=== PATIENT | female | born 1960 | race Caucasian/White ===

== ENCOUNTER 2020-08-21 06:13 | Outpatient (REF) | payer OTHER, SELFPAY ==
[2020-08-21 08:56] LABS: Thyroid Stimulating Hormone 1.98 mIU/mL (0.32-4.0)
[2020-08-21 09:29] LABS: T4 Thyroxine 9.2 ug/dL (4.5-12.0)
== END 2020-08-21 06:14 | disposition home or self-care (01) ==
LOC: HO.LAB 06:13
PROVIDERS: PCP Internal Medicine; Visit Provider Internal Medicine
DX: E03.9 Hypothyroidism, unspecified (principal)
CPT/HCPCS: 84436; 84443

== ENCOUNTER 2020-11-22 17:55 | Outpatient (REF) | payer OTHER, SELFPAY ==
[2020-11-23 10:49] LABS: MRSA Nasal PCR NEGATIVE (Negative); SA Nasal PCR NEGATIVE (Negative)
== END 2020-11-22 17:56 | disposition home or self-care (01) ==
LOC: HO.LNP 17:55
PROVIDERS: Visit Provider Internal Medicine
DX: Z20.818 Contact with and (suspected) exposure to other bacterial communicable diseases (principal)
CPT/HCPCS: 87640; 87641

== ENCOUNTER 2021-01-10 07:35 | Outpatient (REF) | payer OTHER, SELFPAY ==
[2021-01-10 10:18] LABS: MANUAL DIFF FLAG NO
[2021-01-10 10:32] LABS: Basophils Absolute Auto 0.1 X10*3/uL (0.0-0.2); Basophils Percent Auto 0.8 % (0-2); Eosinophils Absolute Auto 0.2 X10*3/uL (0.0-0.4); Eosinophils Percent Auto 2.3 % (0-4); Hematocrit 41.5 % (37-47); Hemoglobin 13.9 g/dl (12.0-16.0); Imm Gran Abs Auto 0.03 X10*3/uL (0.00-0.03); Imm Gran Pct Auto 0.3 % (0.0-0.4); Lymphocytes Absolute Auto 2.4 X10*3/uL (1.2-4.9); Lymphocytes Percent Auto 27.2 % (20-40); Mean Corpuscular HGB Conc 33.5 g/dl (31.0-35.0); Mean Corpuscular Hemoglobin 32.7 pg (27.0-33.0); Mean Corpuscular Volume 97.6 fL (80-98); Mean Platelet Volume 10.9 fL (9.4-12.3); Monocytes Absolute Auto 0.5 X10*3/uL (0.1-1.2); Monocytes Percent Auto 5.9 % (2-11); Neutrophils Absolute Auto 5.7 X10*3/uL (2.0-8.3); Neutrophils Percent Auto 63.5 % (45-73); Platelet Count 302 X10*3/uL (160-400); Red Blood Count 4.25 X10*6/uL (4.20-5.50); Red Cell Distribution Width 12.5 % (11.0-16.0)
[2021-01-10 10:41] LABS: Glucose Urine UA NEG (NEG); Leukocyte Esterase Urine NEG (NEG); Nitrite Urine NEG (NEG); Specific Gravity - Urine 1.025 (1.005-1.025); Urine Blood 1+ (NEG); Urine Ketones NEG (NEG); Urine Protein NEG (NEG-TRACE)
[2021-01-10 10:42] LABS: Appearance Urine CLOUDY; Color Urine YELLOW
[2021-01-10 10:56] LABS: Bacteria Urine 4+ /LPF; Calcium Oxalate Crystals Urine 4+ /LPF
[2021-01-10 11:08] LABS: Alanine Aminotransferase 15 U/L (0-31); Albumin Level 4.5 g/dL (3.5-5.0); Alkaline Phosphatase 63 U/L (39-117); Anion Gap 13 (12-20); Aspartate Amino Transferase 15 U/L (5-31); Bilirubin Total 0.5 mg/dL (0.0-1.0); Blood Urea Nitrogen 13 mg/dL (9-16); Calcium 8.9 mg/dL (8.4-10.2); Carbon Dioxide 26 mmol/L (22-29); Chloride 104 mmol/L (96-108); Cholesterol 206 mg/dL; Estimated Glomerular Filt Rate > 60; Glucose Random 88 mg/dL (60-115); HDL Cholesterol 65 mg/dL; LDL Cholesterol Calculated 126 mg/dl; Potassium 3.9 mmol/L (3.3-5.1); Sodium 139 mmol/L (135-145); Total Protein 6.7 g/dL (6.5-8.0); Triglycerides 79 mg/dL
[2021-01-10 11:30] LABS: Free T4 (Free Thyroxine) 1.06 ng/dL (0.71-1.85); Vitamin D 25-OH Total 43.8 ng/mL (>30)
[2021-01-10 12:29] LABS: Folate 12.8 ng/mL (> or = 4.0); Vitamin B12 389 pg/mL (200-900)
== END 2021-01-10 07:36 | disposition home or self-care (01) ==
LOC: HO.10HDL 07:35
PROVIDERS: Visit Provider Internal Medicine
DX: K21.9 Gastro-esophageal reflux disease without esophagitis (principal); E03.9 Hypothyroidism, unspecified; E78.00 Pure hypercholesterolemia, unspecified; E53.8 Deficiency of other specified B group vitamins
CPT/HCPCS: 36415; 80053; 80061; 81001; 82306; 82607; 82746; 84439; 84443; 85025; 86900; 86901

== ENCOUNTER → 2021-10-28 14:14 | Outpatient (BNVA) | payer OTHER, SELFPAY | PROVIDERS: PCP Internal Medicine; Visit Provider Orthopaedic Surgery | DX: M79.641 Pain in right hand (principal); R20.0 Anesthesia of skin; R20.2 Paresthesia of skin | CPT/HCPCS: 99202 ==

== ENCOUNTER 2021-12-12 07:33 | Outpatient (REF) | payer OTHER, SELFPAY ==
[2021-12-12 10:32] LABS: MANUAL DIFF FLAG NO
[2021-12-12 10:39] LABS: Basophils Absolute Auto 0.1 X10*3/uL (0.0-0.2); Basophils Percent Auto 0.8 % (0-2); Eosinophils Absolute Auto 0.3 X10*3/uL (0.0-0.4); Eosinophils Percent Auto 2.3 % (0-4); Hematocrit 41.2 % (37.0-47.0); Hemoglobin 13.7 g/dl (12.0-16.0); Imm Gran Abs Auto 0.03 X10*3/uL (0.00-0.03); Imm Gran Pct Auto 0.3 % (0.0-0.4); Lymphocytes Absolute Auto 2.8 X10*3/uL (1.2-4.9); Lymphocytes Percent Auto 25.4 % (20-40); Mean Corpuscular HGB Conc 33.3 g/dl (31.0-35.0); Mean Corpuscular Hemoglobin 32.1 pg (27.0-33.0); Mean Corpuscular Volume 96.5 fL (80.0-98.0); Mean Platelet Volume 12.1 fL (9.4-12.3); Monocytes Absolute Auto 0.6 X10*3/uL (0.1-1.2); Monocytes Percent Auto 5.3 % (2-11); Neutrophils Absolute Auto 7.2 x10*3/uL (2.0-8.3); Neutrophils Percent Auto 65.9 % (45-73); Platelet Count 222 X10*3/uL (160-400); Red Blood Count 4.27 X10*6/uL (4.20-5.50); White Blood Count 10.9 X10*3/uL (4.8-10.8)
[2021-12-12 10:46] LABS: Alanine Aminotransferase 11 U/L (0-31); Albumin Level 4.4 g/dL (3.5-5.0); Alkaline Phosphatase 70 U/L (39-117); Anion Gap 12 (12-20); Aspartate Amino Transferase 13 U/L (5-31); Bilirubin Total 0.6 mg/dL (0.0-1.0); Blood Urea Nitrogen 15 mg/dL (9-16); Calcium 9.5 mg/dL (8.4-10.2); Carbon Dioxide 25 mmol/L (22-29); Chloride 107 mmol/L (96-108); Cholesterol 251 mg/dL; Estimated Glomerular Filt Rate > 60; Glucose Random 88 mg/dL (60-115); HDL Cholesterol 44 mg/dL; LDL Cholesterol Calculated 179 mg/dl; Potassium 4.1 mmol/L (3.3-5.1); Sodium 140 mmol/L (135-145); Total Protein 6.8 g/dL (6.5-8.0); Triglycerides 142 mg/dL
[2021-12-12 11:06] LABS: Thyroid Stimulating Hormone 5.66 uIU/mL (0.32-4.0); Vitamin D 25-OH Total 54.5 ng/mL (>30)
[2021-12-12 11:27] LABS: Folate 8.4 ng/mL (> or = 4.0); Vitamin B12 449 pg/mL (200-900)
== END 2021-12-12 07:34 | disposition home or self-care (01) ==
LOC: HO.10HDL 07:33
PROVIDERS: Visit Provider Internal Medicine
DX: E03.9 Hypothyroidism, unspecified (principal); E78.00 Pure hypercholesterolemia, unspecified
CPT/HCPCS: 36415; 80053; 80061; 82306; 82607; 82746; 84439; 84443; 85025

== ENCOUNTER 2022-01-13 14:37 | Outpatient (RCR) | payer OTHER, SELFPAY ==
--- NOTE | 2022-01-13 15:36 | MHC.PT.EP ---
[facility] [place] Office [place] Office [place] Office [address] Shelli Grullon [address] [phone] F: [phone] F: [phone] F: [phone] F: [phone] Physical Therapy Plan of Care Date of Evaluation: Date of Surgery: n/a Diagnosis: cervicalgia Assessment: Patient is a 61 year old female presenting to PT with complaints of pain in her neck. Pt reports onset of pain began 5 months ago due to insidious onset. She presents today with impairments in pain, cervical ROM, DNF strength, and posture. 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 Pt expresses alf goal of being able to lift without pain for work, and is motivated to work towards this in PT. Clinical presentation today is most consistent with signs and sx associated with neck pain that is likely myofascial in nature and pt will benefit from skilled PT to address the following problems and impairments noted upon evaluation: pain, cervical ROM, DNF strength, and posture. These problems limit the patient with the following functional activities: lifting, and work. The prescribed treatment plan of care is medically necessary. Co-morbidities of none were identified and taken into considerations of plan of care. Pt was educated on HEP, role of PT, prognosis, POC. Frequency and Duration: The patient will be seen 2 x week x 4 weeks Short Term Goals: Pt will demonstrate improved AROM with min to no pain in available range in 2 weeks. Pt will demonstrate good DNF recruitment with chin tuck in 2 weeks for improved strength. Pt will demonstrate improved postural awareness by sitting with biomechanically correct posture without cues throughout session to improve overall postural function in 2 weeks. 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 Pt will demonstrate improved NDI score to less than 15% disability in 4 weeks for improved overall functional mobility. Treatment Plan: Modalities to reduce pain, spasms and effusion. Manual therapy to restore motion and function. Therapeutic exercise to improve strength and flexibility. Neuromuscular re-education for posture and balance. Therapeutic activities to return to functional activities of daily living. Electronically signed by: Radha Morgan, PT, DPT, ATC Please sign and return to therapist. Thank you for your referral.
--- NOTE | 2022-01-19 15:26 | MHC.PT.DC ---
[facility] [place] Office [place] Office [place] Office [address] Shelli Grullon [address] [phone] F: [phone] F: [phone] F: [phone] F: [phone] Physical Therapy Discharge Report Diagnosis: cervicalgia Date of Surgery: n/a Date of Evaluation: 01/13/22 Date of Discharge: 01/19/22 Treatments to Date: 1 Cancellations to Date: 0 No Shows to Date: 0 Discharge Status: Patient Elected to Stop Discharge Summary: Pt presented today stating she had significantly worse pain after the evaluation and massage/stretches that she tried. Pt stating she does not feel comfortable completing exercises at this point and does not want to continue with PT. Discussed with pt that there are other exercises and interventions we can try for pain management and but she declined these as well. Pt stating she would like to follow up with PCP and would like to be discharged at this time. Therefore pt to be d/c and to follow up with MD. Electronically signed by: Radha Morgan, PT, DPT, ATC Please sign and return to therapist. Thank you for your referral.
== END 2022-01-19 15:26 | disposition home or self-care (01) ==
LOC: HO.PTCHIC 14:37
PROVIDERS: PCP Internal Medicine; Visit Provider Internal Medicine
DX: M54.2 Cervicalgia (principal)
CPT/HCPCS: 97140; 97161

== ENCOUNTER 2022-02-02 08:00 | Outpatient (REF) | payer OTHER, SELFPAY ==
[2022-02-02 11:21] LABS: Free T4 (Free Thyroxine) 1.05 ng/dL (0.71-1.85); Thyroid Stimulating Hormone 2.71 uIU/mL (0.32-4.0)
== END 2022-02-02 08:01 | disposition home or self-care (01) ==
LOC: HO.10HDL 08:00
PROVIDERS: Visit Provider Internal Medicine
DX: E03.9 Hypothyroidism, unspecified (principal)
CPT/HCPCS: 36415; 84439; 84443

== ENCOUNTER 2022-02-25 14:10 | Outpatient (REF) | payer OTHER, SELFPAY ==
[2022-02-25 14:44] LABS: COVID-19 Test Negative (Negative)
== END 2022-02-25 14:11 | disposition home or self-care (01) ==
LOC: HO.LAB 14:10
PROVIDERS: Visit Provider Internal Medicine
DX: Z20.822 Contact with and (suspected) exposure to COVID-19 (principal)
CPT/HCPCS: 87635; C9803

== ENCOUNTER 2022-03-23 08:08 | Outpatient (REF) | payer OTHER, SELFPAY ==
[2022-03-23 11:06] LABS: Thyroid Stimulating Hormone 0.79 uIU/mL (0.32-4.0)
== END 2022-03-23 08:09 | disposition home or self-care (01) ==
LOC: HO.10HDL 08:08
PROVIDERS: Visit Provider Internal Medicine
DX: E03.9 Hypothyroidism, unspecified (principal)
CPT/HCPCS: 36415; 84443

== ENCOUNTER 2022-03-30 07:27 | Outpatient (REF) | payer OTHER, SELFPAY ==
[2022-03-30 10:20] LABS: MANUAL DIFF FLAG NO
[2022-03-30 10:24] LABS: Basophils Absolute Auto 0.1 X10*3/uL (0.0-0.2); Basophils Percent Auto 0.6 % (0-2); Eosinophils Absolute Auto 0.3 X10*3/uL (0.0-0.4); Eosinophils Percent Auto 2.7 % (0-4); Hematocrit 40.5 % (37.0-47.0); Hemoglobin 13.6 g/dl (12.0-16.0); Imm Gran Abs Auto 0.05 X10*3/uL (0.00-0.03); Imm Gran Pct Auto 0.4 % (0.0-0.4); Lymphocytes Absolute Auto 2.7 X10*3/uL (1.2-4.9); Lymphocytes Percent Auto 21.8 % (20-40); Mean Corpuscular HGB Conc 33.6 g/dl (31.0-35.0); Mean Corpuscular Hemoglobin 32.2 pg (27.0-33.0); Mean Platelet Volume 11.3 fL (9.4-12.3); Monocytes Absolute Auto 0.6 X10*3/uL (0.1-1.2); Monocytes Percent Auto 4.7 % (2-11); Neutrophils Absolute Auto 8.7 x10*3/uL (2.0-8.3); Neutrophils Percent Auto 69.8 % (45-73); Platelet Count 266 X10*3/uL (160-400); Red Blood Count 4.22 X10*6/uL (4.20-5.50); Red Cell Distribution Width 12.4 % (11.0-16.0); White Blood Count 12.5 X10*3/uL (4.8-10.8)
[2022-03-30 10:47] LABS: Alanine Aminotransferase 19 U/L (0-31); Albumin Level 4.3 g/dL (3.5-5.0); Alkaline Phosphatase 56 U/L (39-117); Anion Gap 13 (12-20); Aspartate Amino Transferase 15 U/L (5-31); Bilirubin Total 0.2 mg/dL (0.0-1.0); Blood Urea Nitrogen 14 mg/dL (9-16); Calcium 9.4 mg/dL (8.4-10.2); Carbon Dioxide 24 mmol/L (22-29); Chloride 106 mmol/L (96-108); Cholesterol 231 mg/dL; Estimated Glomerular Filt Rate > 60; Glucose Random 114 mg/dL (60-115); HDL Cholesterol 54 mg/dL; LDL Cholesterol Calculated 159 mg/dl; Potassium 4.1 mmol/L (3.3-5.1); Sodium 139 mmol/L (135-145); Total Protein 6.6 g/dL (6.5-8.0); Triglycerides 92 mg/dL
== END 2022-03-30 07:28 | disposition home or self-care (01) ==
LOC: HO.10HDL 07:27
PROVIDERS: Visit Provider Internal Medicine
DX: E78.00 Pure hypercholesterolemia, unspecified (principal)
CPT/HCPCS: 36415; 80053; 80061; 84439; 84443; 85025

== ENCOUNTER → 2022-04-29 14:26 | Outpatient (REF) | payer OTHER, SELFPAY ==
--- NOTE | 2022-04-29 14:28 | HM_ITS ---
Conclusion: 1. Patient was monitor for total period of 3 days and 1 hour 2. Baseline was normal sinus rhythm with average heart of 86 beats per minute 3. No significant pauses or bradycardia noted 4. Total of 800 PVCs accounting for 0.23% of total beats accounting for occasional PVCs 5. Short runs of SVT longest lasting 6 beats 6. No patient reported events MTDD
== END ==
LOC: HO.CARD 14:26
PROVIDERS: Visit Provider Internal Medicine
DX: R00.2 Palpitations (principal)
CPT/HCPCS: 93242

== ENCOUNTER 2022-05-12 14:05 | Outpatient (REF) | payer OTHER, SELFPAY ==
[2022-05-12 15:18] LABS: COVID-19 Test Negative (Negative); IDNOW Serial# 16C4AD1C
== END 2022-05-12 14:06 | disposition home or self-care (01) ==
LOC: HO.LAB 14:05
PROVIDERS: Visit Provider Internal Medicine
DX: Z20.822 Contact with and (suspected) exposure to COVID-19 (principal)
CPT/HCPCS: 87635; C9803

== ENCOUNTER 2022-05-22 09:51 | Emergency (ER) | payer OTHER, SELFPAY ==
[2022-05-22 10:32] VITALS: BP 104/72; PULSE 80; RESP 16; TEMP 36.8; O2SAT 96; BMI 18.3
[2022-05-22 10:51] LABS: MANUAL DIFF FLAG NO
[2022-05-22 10:53] LABS: Basophils Absolute Auto 0.1 X10*3/uL (0.0-0.2); Basophils Percent Auto 0.5 % (0-2); Eosinophils Absolute Auto 0.2 X10*3/uL (0.0-0.4); Eosinophils Percent Auto 1.2 % (0-4); Hematocrit 39.6 % (37.0-47.0); Hemoglobin 13.4 g/dl (12.0-16.0); Imm Gran Abs Auto 0.04 X10*3/uL (0.00-0.03); Imm Gran Pct Auto 0.3 % (0.0-0.4); Lymphocytes Absolute Auto 3.4 X10*3/uL (1.2-4.9); Lymphocytes Percent Auto 26.4 % (20-40); Mean Corpuscular HGB Conc 33.8 g/dl (31.0-35.0); Mean Corpuscular Hemoglobin 32.4 pg (27.0-33.0); Mean Corpuscular Volume 95.7 fL (80.0-98.0); Mean Platelet Volume 10.2 fL (9.4-12.3); Monocytes Absolute Auto 0.7 X10*3/uL (0.1-1.2); Monocytes Percent Auto 5.1 % (2-11); Neutrophils Absolute Auto 8.4 x10*3/uL (2.0-8.3); Neutrophils Percent Auto 66.5 % (45-73); Platelet Count 265 X10*3/uL (160-400); Red Blood Count 4.14 X10*6/uL (4.20-5.50); Red Cell Distribution Width 12.8 % (11.0-16.0); White Blood Count 12.7 X10*3/uL (4.8-10.8)
[2022-05-22 10:58] LABS: Appearance Urine HAZY; Color Urine STRAW; Glucose Urine UA NEG (NEG); Leukocyte Esterase Urine NEG (NEG); Nitrite Urine POS (NEG); Specific Gravity - Urine <= 1.005 (1.005-1.025); UACC Culture Trigger YES; Urine Blood NEG (NEG); Urine Ketones NEG (NEG); Urine Protein NEG (NEG-TRACE)
[2022-05-22 11:05] LABS: Bacteria Urine 4+ /LPF; Squamous Epithelial Cell Urine TRACE /LPF
[2022-05-22 11:06] LABS: RBC Urine 0 /HPF (0); WBC Urine 0 /HPF (0-4)
[2022-05-22 11:12] LABS: Alanine Aminotransferase 33 U/L (0-31); Albumin Level 4.5 g/dL (3.5-5.0); Alkaline Phosphatase 56 U/L (39-117); Anion Gap 13 (12-20); Aspartate Amino Transferase 20 U/L (5-31); Bilirubin Total 0.7 mg/dL (0.0-1.0); Blood Urea Nitrogen 10 mg/dL (9-16); Calcium 9.2 mg/dL (8.4-10.2); Carbon Dioxide 27 mmol/L (22-29); Chloride 105 mmol/L (96-108); Creatinine Clr Calc Pharmacy 59.4; Estimated Glomerular Filt Rate > 60; Glucose Random 99 mg/dL (60-115); Lipase 14 U/L (8-78); Potassium 4.2 mmol/L (3.3-5.1); Sodium 141 mmol/L (135-145); Total Protein 6.7 g/dL (6.5-8.0)
== END 2022-05-22 15:30 | disposition left against medical advice (07) ==
PROVIDERS: Emergency Provider Emergency Medicine; PCP Internal Medicine
DX: R10.13 Epigastric pain (principal)
CPT/HCPCS: 36415; 80053; 81001; 81003; 83690; 85025; 87086; 87088; 87186; 99282; 99283

== ENCOUNTER 2022-06-03 07:31 | Outpatient (REF) | payer OTHER, SELFPAY ==
[2022-06-03 08:50] LABS: COVID-19 Test Negative (Negative); IDNOW Serial# 9DB6401D
== END 2022-06-03 07:32 | disposition home or self-care (01) ==
LOC: HO.LAB 07:31
PROVIDERS: Visit Provider Internal Medicine
DX: Z20.822 Contact with and (suspected) exposure to COVID-19 (principal)
CPT/HCPCS: 87635; C9803

== ENCOUNTER 2022-06-16 14:09 | Outpatient (REF) | payer OTHER, SELFPAY ==
[2022-06-16 14:52] LABS: COVID-19 Test Negative (Negative)
== END 2022-06-16 14:10 | disposition home or self-care (01) ==
LOC: HO.LAB 14:09
PROVIDERS: Visit Provider Internal Medicine
DX: Z20.822 Contact with and (suspected) exposure to COVID-19 (principal)
CPT/HCPCS: 87635; C9803

== ENCOUNTER 2022-10-07 14:27 | Outpatient (REF) | payer OTHER, SELFPAY ==
[2022-10-07 16:28] LABS: MANUAL DIFF FLAG NO
[2022-10-07 16:34] LABS: Basophils Absolute Auto 0.1 X10*3/uL (0.0-0.2); Basophils Percent Auto 0.5 % (0-2); Eosinophils Absolute Auto 0.1 X10*3/uL (0.0-0.4); Eosinophils Percent Auto 0.7 % (0-4); Hematocrit 38.4 % (37.0-47.0); Hemoglobin 13.1 g/dl (12.0-16.0); Imm Gran Abs Auto 0.04 X10*3/uL (0.00-0.03); Imm Gran Pct Auto 0.4 % (0.0-0.4); Lymphocytes Absolute Auto 2.4 X10*3/uL (1.2-4.9); Lymphocytes Percent Auto 24.8 % (20-40); Mean Corpuscular HGB Conc 34.1 g/dl (31.0-35.0); Mean Corpuscular Hemoglobin 32.6 pg (27.0-33.0); Mean Corpuscular Volume 95.5 fL (80.0-98.0); Mean Platelet Volume 11.7 fL (9.4-12.3); Monocytes Absolute Auto 0.5 X10*3/uL (0.1-1.2); Monocytes Percent Auto 5.6 % (2-11); Neutrophils Absolute Auto 6.5 x10*3/uL (2.0-8.3); Platelet Count 206 X10*3/uL (160-400); Red Blood Count 4.02 X10*6/uL (4.20-5.50); Red Cell Distribution Width 12.7 % (11.0-16.0); White Blood Count 9.6 X10*3/uL (4.8-10.8)
[2022-10-07 16:42] LABS: Alanine Aminotransferase 72 U/L (0-31); Albumin Level 3.9 g/dL (3.5-5.0); Alkaline Phosphatase 62 U/L (39-117); Anion Gap 13 (12-20); Aspartate Amino Transferase 27 U/L (5-31); Bilirubin Direct 0.3 mg/dL (0.0-0.5); Blood Urea Nitrogen 6 mg/dL (9-16); C Reactive Protein 4.82 mg/dL (< or = 0.50); Calcium 9.3 mg/dL (8.4-10.2); Carbon Dioxide 30 mmol/L (22-29); Chloride 99 mmol/L (96-108); Estimated Glomerular Filt Rate > 60; Glucose Random 89 mg/dL (60-115); Potassium 3.5 mmol/L (3.3-5.1); Sodium 138 mmol/L (135-145); Total Protein 6.3 g/dL (6.5-8.0)
[2022-10-07 17:50] LABS: Erythrocyte Sedimentation Rate 25 MM/HR (0-20)
== END 2022-10-07 14:28 | disposition home or self-care (01) ==
LOC: HO.HMGCLDS 14:27
PROVIDERS: PCP Internal Medicine; Visit Provider Nurse Practitioner Family
DX: R10.9 Unspecified abdominal pain (principal)
CPT/HCPCS: 36415; 80048; 80076; 85025; 85652; 86140

== ENCOUNTER 2023-05-17 14:10 | Outpatient (AMB) | payer OTHER, SELFPAY ==
[2023-05-17 14:14] VITALS: BP 110/70; BMI 17.7
--- NOTE | 2023-05-17 14:14 | MHC.PC.OV ---
Vital Signs 05/17/23 14:14 Height 5 ft 2 in Weight 97 lb BMI 17.7 BP 110/70 Blood Pressure Location Lt brachial Position Sitting Intake Visit Reasons: cholesterol Allergies sulfamethoxazole [From Bactrim] Allergy (Severe, Verified 05/17/23 14:15) upset stomach trimethoprim [From Bactrim] Allergy (Severe, Verified 05/17/23 14:15) upset stomach Penicillins [PENICILLINS] Allergy (Unknown, Verified 05/17/23 14:15) HIVES simvastatin [SIMVASTATIN] Allergy (Unknown, Verified 05/17/23 14:15) JOINT PAIN omeprazole Adverse Reaction (Intermediate, Verified 05/17/23 14:15) Headache Medication List - Last Reconciled 05/17/23 by Dominik Alas MD cholecalciferol (vitamin D3) 50 mcg PO DAILY cyanocobalamin (vitamin B-12) 1,000 mcg PO DAILY ferrous sulfate (Feosol) 325 mg PO DAILY folic acid 1 mg PO DAILY 90 days hydrocortisone 2.5% (Anusol-HC) 1 appl [place] BID-QID PRN lactobacillus combination no.4 (Probiotic) 3,000 mmu cells PO DAILY levothyroxine 88 mcg PO DAILY 90 days lidocaine 5% 1 patch topical DAILY lorazepam (Ativan) 0.5 mg PO BID PRN metoprolol succinate ER 12.5 mg PO DAILY pantoprazole 40 mg PO DAILY 30 days Tobacco use date assessed: 02/10/23 Dental Screening Dental Screen Date: 05/17/23 Did you have a dental visit in the last 12 months?: No Did you have a dental problem in the last 6 months where you did not have access to dental care?: No Was dental information given to patient?: No HPI cholesterol HPI Details 62-year-old female smoker with hypothyroidism GERD hypercholesterolemia anxiety disorder history of small-bowel obstruction which spontaneously resolved and a right eye cataract coming in for follow-up. Last seen in February 2023 and blood work was requested. Patient was recently discharged from the hospital 04/10/2023 had nausea vomiting and diarrhea and abdominal pain CT scan supporting pancolitis with appendicitis(but on follow-up appendix is better) IV antibiotics given. Saw Dr. Miller= treated as infection- July 19, 2023 for ENdoscopy. no dietary restriction PFSH Medical History (Updated 04/26/23 @ 18:49 by Dominik Alas MD) Anemia Cataract, left eye Colonoscopy refused Generalized anxiety disorder GERD (gastroesophageal reflux disease) Hypercholesterolemia Hypothyroid Tobacco abuse Vitamin B12 deficiency Surgical History History of eye surgery Family History Father Hypertension CVD (cardiovascular disease) Bladder cancer Mother CVD (cardiovascular disease) Hypertension Lymphoma Maternal Grandmother Uterine cancer Breast cancer Maternal Aunt Ovarian cancer Sister CVD (cardiovascular disease) Social History (Updated 02/10/23 @ 13:48 by Dominik Alas MD) Housing: Apartment Alcohol intake: former Patient Tobacco Use Status: Current everyday Tobacco user Tobacco use type: Cigarette Cigarette Packs Per Day: 1 Cigarettes Per Day: 5 Years Smoked: less than half pack per day 12/2020, pack a day 12/2021 Packs Per Year: 0 Packs per year/per ci.00 e-Cigarette/Vaping Use: Never Used Second Hand Smoke Exposure: Yes service: No Current occupational status: employed 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 1. Little interest or pleasure in doing things: not at all 2. Feeling down, depressed, or hopeless: not at all 3. Trouble falling or staying asleep, or sleeping too much: not at all 4. Feeling tired or having little energy: not at all 5. Poor appetite or overeating: not at all 6. Feeling bad about yourself - or that you are a failure or have let yourself or your family down: not at all 7. Trouble concentrating on things, such as reading the newspaper or watching television: not at all 8. Moving or speaking so slowly that other people could have noticed. Or the opposite - being so fidgety or restless that you have been moving around a lot more than usual: not at all 9. Thoughts that you would be better off or of hurting yourself in some way: not at all Total score: 0 Depression Screening Interpretation: Negative Source: Developed by Drs. Piero L. EricMillie elizabeth Kurt Kroenke and colleagues, with an educational anila from [employer]. Thrive Questionnaire Date Thrive assessed: 02/10/23 AUDIT C Alcohol Use Questionnaire (AUDIT-C) 1. How often do you have a drink containing alcohol?: Never 3. How often do you have six or more drinks on one occasion?: Never Total Score: 0 Score Reviewed/Action Taken: Yes VAL-7 AMB Questionnaire VAL-7 Date VAL - 7 assessed: 02/10/23 Source: Developed by Drs. Piero Reyes, Patrice Mcwilliams and colleagues, with an educational anila from [employer]. Physical exam (Primary Care) Vital Signs: Last Vital Signs BP 110/70 05/17/23 14:14 BMI result Body Mass Index 17.7 Tobacco/Smoking Status: Tobacco use Status Tobacco use date assessed 02/10/23 05/17/23 14:20 Patient Tobacco Use Status Current everyday Tobacco 05/17/23 14:20 Tobacco use type Cigarette 05/17/23 14:20 e-Cigarette/Vaping Use Never Used 05/17/23 14:20 PHQ-9: PHQ-9 Score PHQ-9: Total score 0 05/17/23 14:20 Depression Screening Interpretation: Negative Thrive Assessment: Date of Thrive Assessment Date Thrive assessed 02/10/23 05/17/23 14:20 Const General: alert; No acute distress Eyes Conjunctivae: conjunctivae normal Resp Auscultation: clear to auscultation bilaterally Cardio Rate: regular rate Rhythm: regular rhythm GI Inspection: Yes normal to inspection Extrem General: Yes normal to inspection and No edema Assessment and Plan Assessment & Plan (1) Pancolitis: Comment: April 2023 Code(s): K51.00 - Ulcerative (chronic) pancolitis without complications Plan: IV antibiotics given and advised to follow-up surgeon outpatient (2) Generalized anxiety disorder: Comment: Declined referral for counseling Code(s): F41.1 - Generalized anxiety disorder Plan: Continue with lorazepam as needed (3) Hypercholesterolemia: Code(s): E78.00 - Pure hypercholesterolemia, unspecified Plan: Avoid fried foods, chicken skin, eggs, butter margarine, pastries and meat. Be it pork or beef they have a lot of cholesterol LDL goal of less than 130 and triglyceride of less than 50 (4) GERD (gastroesophageal reflux disease): Code(s): K21.9 - Gastro-esophageal reflux disease without esophagitis Qualifiers: Esophagitis presence: without esophagitis Qualified Code(s): K21.9 - Gastro-esophageal reflux disease without esophagitis Plan: Avoid the foods that causes that usually spicy foods, tomato products, juices, coffee, soda and foods that your sensitive to. After eating do not lie down, allow 3-4 hours before in lie down. And keep the head of bed above 30 degrees to avoid the acid from going up. Advised to stop smoking (5) Tobacco abuse: Comment: 08/2022 stopped - continuing to smoke 02/2023 Code(s): Z72.0 - Tobacco use Plan: Patient is advised to stop smoking (6) Hypothyroid: Code(s): E03.9 - Hypothyroidism, unspecified Qualifiers: Hypothyroidism type: acquired Qualified Code(s): E03.9 - Hypothyroidism, unspecified Plan: Continue with the thyroid medication Medications: Changed From metoprolol succinate ER 12.5 mg (1/2 x 25 mg) PO DAILY 30 days 15 tabs 3RF R00.2 - Palpitations To metoprolol succinate ER SVT hx 12.5 mg PO DAILY R00.2 - Palpitations Coding Level of Care Code Est Pt Level 4 (44900) Diagnoses Pancolitis K51.00 Generalized anxiety disorder F41.1 Hypercholesterolemia E78.00 GERD (gastroesophageal reflux disease) K21.9 Esophagitis presence: without esophagitis Tobacco abuse Z72.0 Hypothyroid E03.9 Hypothyroidism type: acquired Additional Codes PHQ-9 - 49976 - PHQ-9 Billing: Y ([id number])
== END 2023-05-17 14:36 | disposition home or self-care (01) ==
PROVIDERS: Visit Provider Internal Medicine
DX: K51.00 Ulcerative (chronic) pancolitis without complications (principal); K21.9 Gastro-esophageal reflux disease without esophagitis; E03.9 Hypothyroidism, unspecified; F41.1 Generalized anxiety disorder; E78.00 Pure hypercholesterolemia, unspecified; Z72.0 Tobacco use
CPT/HCPCS: 99214

== ENCOUNTER 2023-11-22 14:26 | Outpatient (AMB) | payer OTHER, SELFPAY ==
[2023-11-22 14:40] VITALS: BP 102/78; BMI 18.3
--- NOTE | 2023-11-22 14:40 | MHC.PC.OV ---
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 Required: No Allergies sulfamethoxazole [From Bactrim] Allergy (Severe, Verified 11/22/23 14:40) upset stomach trimethoprim [From Bactrim] Allergy (Severe, Verified 11/22/23 14:40) upset stomach Penicillins [PENICILLINS] Allergy (Unknown, Verified 11/22/23 14:40) HIVES simvastatin [SIMVASTATIN] Allergy (Unknown, Verified 11/22/23 14:40) JOINT PAIN omeprazole Adverse Reaction (Intermediate, Verified 11/22/23 14:40) Headache Medication List - Last Reconciled 11/22/23 by Dominik Alas MD cholecalciferol (vitamin D3) 50 mcg PO DAILY cyanocobalamin (vitamin B-12) 1,000 mcg PO DAILY ferrous sulfate (Feosol) 325 mg PO DAILY folic acid 1 mg PO DAILY 90 days hydrocortisone 2.5% (Anusol-HC) 1 appl [place] BID-QID PRN lactobacillus combination no.4 (Probiotic) 3,000 mmu cells PO DAILY levothyroxine 88 mcg PO DAILY 90 days lidocaine 5% 1 patch topical DAILY lorazepam (Ativan) 0.5 mg PO BID PRN metoprolol succinate ER 12.5 mg (1/2 x 25 mg) PO DAILY pantoprazole 40 mg PO DAILY 30 days Tobacco use date assessed: 11/22/23 HPI abdominal pain, gerd HPI Details 63-year-old female smoker with a history of GERD hypothyroidism hypercholesterolemia generalized anxiety disorder last seen in May 2023 having pancolitis patient is here for follow-up. Noted mammogram up-to-date declined colonoscopy.. Receive the notes from [facility] ER March 2023 for abdominal pain status post cholecystectomy August 2022 had pancolitis diagnosis. L eye blind but R eye ? cataract.Dr. Franz. still smoking. - reaction to flu shot- L arm. [facility] Medical History (Updated 04/26/23 @ 18:49 by Dominik Alas MD) Generalized anxiety disorder Hypercholesterolemia Colonoscopy refused Cataract, left eye Anemia GERD (gastroesophageal reflux disease) Tobacco abuse Hypothyroid Vitamin B12 deficiency Surgical History History of eye surgery Family History Father Hypertension CVD (cardiovascular disease) Bladder cancer Mother CVD (cardiovascular disease) Hypertension Lymphoma Maternal Grandmother Uterine cancer Breast cancer Maternal Aunt Ovarian cancer Sister CVD (cardiovascular disease) Social History (Updated 02/10/23 @ 13:48 by Dominik Alas MD) Housing: Apartment Alcohol intake: former Patient Tobacco Use Status: Current everyday Tobacco user Tobacco use type: Cigarette Cigarette Packs Per Day: 1 Cigarettes Per Day: 5 Years Smoked: less than half pack per day 12/2020, pack a day 12/2021 e-Cigarette/Vaping Use: Never Used Second Hand Smoke Exposure: Yes service: No Current occupational status: employed 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 1. Little interest or pleasure in doing things: not at all 2. Feeling down, depressed, or hopeless: not at all 3. Trouble falling or staying asleep, or sleeping too much: not at all 4. Feeling tired or having little energy: not at all 5. Poor appetite or overeating: not at all 6. Feeling bad about yourself - or that you are a failure or have let yourself or your family down: not at all 7. Trouble concentrating on things, such as reading the newspaper or watching television: not at all 8. Moving or speaking so slowly that other people could have noticed. Or the opposite - being so fidgety or restless that you have been moving around a lot more than usual: not at all 9. Thoughts that you would be better off or of hurting yourself in some way: not at all Total score: 0 Depression Screening Interpretation: Negative Depression Screening Done: Yes Source: Developed by Drs. Piero Reyes, Millie Alvarado, Patrice Keita and colleagues, with an educational anila from [employer]. Thrive Questionnaire Date Thrive assessed: 11/22/23 AUDIT C Alcohol Use Questionnaire (AUDIT-C) 1. How often do you have a drink containing alcohol?: Never 3. How often do you have six or more drinks on one occasion?: Never Total Score: 0 Score Reviewed/Action Taken: Yes VAL-7 AMB Questionnaire VAL-7 Date VAL - 7 assessed: 11/22/23 Source: Developed by Drs. Piero Reyes, Millie Alvarado, Patrice Keita and colleagues, with an educational anila from [employer]. Physical exam (Primary Care) Vital Signs: Last Vital Signs BP 102/78 11/22/23 14:40 BMI result Body Mass Index 18.3 Tobacco/Smoking Status: Tobacco use Status Tobacco use date assessed 11/22/23 11/22/23 14:41 Patient Tobacco Use Status Current everyday Tobacco 11/22/23 14:41 Tobacco use type Cigarette 11/22/23 14:41 e-Cigarette/Vaping Use Never Used 11/22/23 14:41 PHQ-9: PHQ-9 Score PHQ-9: Total score 0 11/22/23 17:01 Depression Screening Interpretation: Negative Thrive Assessment: Date of Thrive Assessment Date Thrive assessed 11/22/23 11/22/23 14:41 Const General: alert; No acute distress Eyes Conjunctivae: conjunctivae normal Resp Auscultation: clear to auscultation bilaterally Cardio Rate: regular rate Rhythm: regular rhythm GI Inspection: Yes normal to inspection Extrem General: Yes normal to inspection and No edema Assessment and Plan Assessment & Plan (1) Tobacco abuse: Comment: 08/2022 stopped - continuing to smoke 02/2023 Code(s): Z72.0 - Tobacco use Plan: Patient is strongly advised to stop smoking! (2) GERD (gastroesophageal reflux disease): Code(s): K21.9 - Gastro-esophageal reflux disease without esophagitis Qualifiers: Esophagitis presence: without esophagitis Qualified Code(s): K21.9 - Gastro-esophageal reflux disease without esophagitis Plan: Avoid the foods that causes that usually spicy foods, tomato products, juices, coffee, soda and foods that your sensitive to. After eating do not lie down, allow 3-4 hours before in lie down. And keep the head of bed above 30 degrees to avoid the acid from going up. (3) Hypothyroid: Code(s): E03.9 - Hypothyroidism, unspecified Qualifiers: Hypothyroidism type: acquired Qualified Code(s): E03.9 - Hypothyroidism, unspecified Plan: Continue with thyroid medication need blood work request (4) Hypercholesterolemia: Code(s): E78.00 - Pure hypercholesterolemia, unspecified Plan: Avoid fried foods, chicken skin, eggs, butter margarine, pastries and meat. Be it pork or beef they have a lot of cholesterol can not tolerate statins (5) Generalized anxiety disorder: Comment: Declined referral for counseling Code(s): F41.1 - Generalized anxiety disorder Plan: Continue with lorazepam as needed (6) Pancolitis: Comment: April 2023 Code(s): K51.00 - Ulcerative (chronic) pancolitis without complications Plan: April 2023 ER visit Coding Level of Care Code Est Pt Level 4 (04814) Diagnoses Tobacco abuse Z72.0 Gastroesophageal reflux disease without esophagitis K21.9 Esophagitis presence: without esophagitis Acquired hypothyroidism E03.9 Hypothyroidism type: acquired Hypercholesterolemia E78.00 Generalized anxiety disorder F41.1 Pancolitis K51.00 Additional Codes PHQ-9 - 81209 - PHQ-9 Billing: ([id number])
== END 2023-11-22 15:53 | disposition home or self-care (01) ==
PROVIDERS: PCP Internal Medicine; Visit Provider Internal Medicine
DX: K51.00 Ulcerative (chronic) pancolitis without complications (principal); K21.9 Gastro-esophageal reflux disease without esophagitis; E03.9 Hypothyroidism, unspecified; E78.00 Pure hypercholesterolemia, unspecified
CPT/HCPCS: 99214

== ENCOUNTER 2024-01-28 07:29 | Outpatient (REF) | payer OTHER, SELFPAY ==
[2024-01-28 11:36] LABS: MANUAL DIFF FLAG NO
[2024-01-28 11:46] LABS: Basophils Absolute Auto 0.1 X10*3/uL (0.0-0.2); Eosinophils Absolute Auto 0.2 X10*3/uL (0.0-0.4); Eosinophils Percent Auto 2.1 % (0-4); Hemoglobin 15.2 g/dl (12.0-16.0); Imm Gran Abs Auto 0.05 X10*3/uL (0.00-0.03); Imm Gran Pct Auto 0.4 % (0.0-0.4); Lymphocytes Absolute Auto 2.7 X10*3/uL (1.2-4.9); Lymphocytes Percent Auto 22.9 % (20-40); Mean Corpuscular HGB Conc 34.5 g/dl (31.0-35.0); Mean Corpuscular Hemoglobin 33.4 pg (27.0-33.0); Mean Corpuscular Volume 96.7 fL (80.0-98.0); Mean Platelet Volume 10.7 fL (9.4-12.3); Monocytes Absolute Auto 0.6 X10*3/uL (0.1-1.2); Monocytes Percent Auto 5.2 % (2-11); Neutrophils Percent Auto 68.4 % (45-73); Platelet Count 267 X10*3/uL (160-400); Red Blood Count 4.55 X10*6/uL (4.20-5.50); Red Cell Distribution Width 12.2 % (11.0-16.0); White Blood Count 11.7 X10*3/uL (4.8-10.8)
[2024-01-28 12:26] LABS: Folate 7.4 ng/mL (> or = 4.0); Vitamin B12 540 pg/mL (200-900)
[2024-01-28 12:27] LABS: Alanine Aminotransferase 25 U/L (0-31); Albumin Level 4.4 g/dL (3.5-5.0); Alkaline Phosphatase 78 U/L (39-117); Anion Gap 14 (12-20); Aspartate Amino Transferase 19 U/L (5-31); Bilirubin Total 0.8 mg/dL (0.0-1.0); Blood Urea Nitrogen 11 mg/dL (9-16); Calcium 9.6 mg/dL (8.4-10.2); Carbon Dioxide 27 mmol/L (22-29); Chloride 105 mmol/L (96-108); Cholesterol 233 mg/dL (<200); Estimated Glomerular Filt Rate > 60; Free T4 (Free Thyroxine) 1.15 ng/dL (0.71-1.85); Glucose Random 100 mg/dL (60-115); HDL Cholesterol 80 mg/dL (>40); LDL Cholesterol Calculated 131 mg/dL (<100); Magnesium 1.8 mg/dL (1.6-2.6); Phosphorus 3.9 mg/dL (2.7-4.5); Potassium 3.9 mmol/L (3.3-5.1); Sodium 142 mmol/L (135-145); Thyroid Stimulating Hormone 1.36 uIU/mL (0.32-4.0); Total Protein 7.2 g/dL (6.5-8.0); Triglycerides 112 mg/dL (<150); Vitamin D 25-OH Total 55.3 ng/mL (>30)
== END 2024-01-28 07:30 | disposition home or self-care (01) ==
LOC: HO.10HDL 07:29
PROVIDERS: Visit Provider Internal Medicine
DX: E78.00 Pure hypercholesterolemia, unspecified (principal)
CPT/HCPCS: 36415; 80053; 80061; 82306; 82607; 82746; 83735; 84100; 84439; 84443; 85025

== ENCOUNTER 2024-02-14 14:47 | Outpatient (AMB) | payer OTHER, SELFPAY ==
[2024-02-14 14:49] VITALS: BP 102/68; BMI 17.9
--- NOTE | 2024-02-14 14:49 | MHC.PC.OV ---
Vital Signs 02/14/24 14:49 Height 5 ft 2 in Weight 98 lb 0.4 oz BMI 17.9 BP 102/68 Blood Pressure Location Lt brachial Position Sitting Pulse Source Pulse Oximeter Oxygen Delivery Method Room Air Comment pt refused pulse/O2 Intake Visit Reasons: Dr. Jacobo/03/06 cataract right eye Intake Note: Patient is here for a Pre-op for Right eye Cataracts scheduled with on 03/06. Home Health Nurse Licensed Practical Required: No Allergies sulfamethoxazole [From Bactrim] Allergy (Severe, Verified 02/14/24 14:49) upset stomach trimethoprim [From Bactrim] Allergy (Severe, Verified 02/14/24 14:49) upset stomach Penicillins [PENICILLINS] Allergy (Unknown, Verified 02/14/24 14:49) HIVES simvastatin [SIMVASTATIN] Allergy (Unknown, Verified 02/14/24 14:49) JOINT PAIN omeprazole Adverse Reaction (Intermediate, Verified 02/14/24 14:49) Headache Medication List - Last Reconciled 02/14/24 by Dominik Alas MD cholecalciferol (vitamin D3) 50 mcg PO DAILY cyanocobalamin (vitamin B-12) 1,000 mcg PO DAILY ferrous sulfate (Feosol) 325 mg PO DAILY folic acid 1 mg PO DAILY 90 days hydrocortisone 2.5% (Anusol-HC) 1 appl TN BID-QID PRN lactobacillus combination no.4 (Probiotic) 3,000 mmu cells PO DAILY levothyroxine 88 mcg PO DAILY 90 days lidocaine 5% 1 patch topical DAILY lorazepam (Ativan) 0.5 mg PO BID PRN metoprolol succinate ER 12.5 mg (1/2 x 25 mg) PO DAILY pantoprazole 40 mg PO DAILY 30 days Tobacco use date assessed: 02/14/24 Dental Screening Dental Screen Date: 05/17/[address] Jacobo/03/06 cataract right eye HPI Details 63-year-old female smoker with GERD, hypothyroidism hypercholesterolemia and generalized anxiety disorder last seen in November 2023. Patient's mammogram is due next month colonoscopy has been declined. Patient is for right eye cataract surgery 03/06/2024 comes in for preoperative evaluation.. cold wednesday. - better yesterday. PFSH Medical History (Updated 02/14/24 @ 15:15 by Dominik Alas MD) Generalized anxiety disorder Hypercholesterolemia Colonoscopy refused Cataract, left eye Anemia GERD (gastroesophageal reflux disease) Tobacco abuse Hypothyroid Vitamin B12 deficiency Surgical History History of eye surgery Family History (Updated 02/14/24 @ 15:19 by Dominik Alas MD) Father Hypertension CVD (cardiovascular disease) Bladder cancer Mother CVD (cardiovascular disease) Hypertension Lymphoma Maternal Grandmother Uterine cancer Breast cancer Maternal Aunt Ovarian cancer Sister No problems noted. 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 How often do you have a drink containing alcohol?: Never 3. How often do you have six or more drinks on one occasion?: Never Total Score: 0 Score Reviewed/Action Taken: Yes VAL-7 AMB Questionnaire VAL-7 Date VAL - 7 assessed: 11/22/23 Source: Developed by Drs. Piero Reyes, Millei Alvarado, Patrice Keita and colleagues, with an educational anila from [employer]. Review of Systems Const Denies poor appetite and Denies weakness Eyes Denies no additional complaints ENT Reports Normal hearing present, Denies dizziness, Denies nasal congestion, Denies tinnitus and Denies sore throat Card Denies chest pain, Denies syncope, Denies rapid heart rate and Denies dyspnea Resp Denies cough and Denies dyspnea GI Denies change in stool character, Reports constipation, Denies diarrhea, Denies nausea and Denies vomiting Denies urinary frequency, Denies difficulty voiding and Denies dysuria Neuro Reports Normal hearing present, Denies confusion, Denies dizziness, Denies syncope and Denies weakness Psych Denies confusion Physical exam (Primary Care) Vital Signs: Last Vital Signs BP 102/68 02/14/24 14:49 Oxygen Delivery Method Room Air 02/14/24 14:49 BMI result Body Mass Index 17.9 Tobacco/Smoking Status: Tobacco use Status Tobacco use date assessed 02/14/24 02/14/24 14:51 Patient Tobacco Use Status Current everyday Tobacco 02/14/24 14:51 Tobacco use type Cigarette 02/14/24 14:51 e-Cigarette/Vaping Use Never Used 02/14/24 14:51 Thrive Assessment: Date of Thrive Assessment Date Thrive assessed 11/22/23 02/14/24 14:51 Const General: No confusion Orientation/consciousness: No confusion Eyes Conjunctivae: conjunctivae normal Resp Auscultation: clear to auscultation bilaterally Cardio Rate: regular rate Rhythm: regular rhythm GI Inspection: Yes normal to inspection Neuro General: No confusion Cranial nerves: Yes Normal hearing present Extrem General: Yes normal to inspection and No edema Assessment and Plan Assessment & Plan (1) Preop exam for internal medicine: Code(s): Z01.818 - Encounter for other preprocedural examination Plan: The patient that the patient is low risk for any cardiac complications and may proceed with the contemplated procedure. Advised continue with blood pressure medication and the GERD medication. And may take the lorazepam p.r.n. (2) Tobacco abuse: Comment: 08/2022 stopped - continuing to smoke 02/2023 Code(s): Z72.0 - Tobacco use Plan: Patient is strongly advised to stop smoking! (3) Hypothyroid: Code(s): E03.9 - Hypothyroidism, unspecified Qualifiers: Hypothyroidism type: acquired Qualified Code(s): E03.9 - Hypothyroidism, unspecified Plan: Continue with thyroid medication (4) GERD (gastroesophageal reflux disease): Code(s): K21.9 - Gastro-esophageal reflux disease without esophagitis Qualifiers: Esophagitis presence: without esophagitis Qualified Code(s): K21.9 - Gastro-esophageal reflux disease without esophagitis Plan: Avoid the foods that causes that usually spicy foods, tomato products, juices, coffee, soda and foods that your sensitive to. After eating do not lie down, allow 3-4 hours before in lie down. And keep the head of bed above 30 degrees to avoid the acid from going up. Continue with pantoprazole 40 mg once a day (5) Hypercholesterolemia: Code(s): E78.00 - Pure hypercholesterolemia, unspecified Plan: Avoid fried foods, chicken skin, eggs, butter margarine, pastries and meat. Be it pork or beef they have a lot of cholesterol (6) Generalized anxiety disorder: Comment: Declined referral for counseling Code(s): F41.1 - Generalized anxiety disorder Plan: Continue with present medication lorazepam as needed (7) Cataract, right eye: Comment: Dr. Jacobo Code(s): H26.9 - Unspecified cataract Plan: Blood work evaluated. No further workup needed at this time. Patient is at low risk for any cardiac complications and may proceed with the contemplated procedure. Thank you very much for letting me participate the care of this patient. Medications: New albuterol sulfate 90 mcg/actuation (Ventolin HFA) 2 puffs inhalation Q6H PRN 8.5 grams 0RF shortness of breath or wheezing Z72.0 - Tobacco use Coding Level of Care Code Est Pt Level 4 (68209) Diagnoses Preop exam for internal medicine Z01.818 Tobacco abuse Z72.0 Acquired hypothyroidism E03.9 Hypothyroidism type: acquired Gastroesophageal reflux disease without esophagitis K21.9 Esophagitis presence: without esophagitis Hypercholesterolemia E78.00 Generalized anxiety disorder F41.1 Cataract, right eye H26.9
== END 2024-02-14 15:31 | disposition home or self-care (01) ==
PROVIDERS: Visit Provider Internal Medicine
DX: Z01.818 Encounter for other preprocedural examination (principal); Z72.0 Tobacco use; E03.9 Hypothyroidism, unspecified; K21.9 Gastro-esophageal reflux disease without esophagitis; E78.00 Pure hypercholesterolemia, unspecified; F41.1 Generalized anxiety disorder; H26.9 Unspecified cataract
CPT/HCPCS: 99214

== ENCOUNTER 2024-03-06 06:18 | Day surgery (SDC) | payer OTHER, SELFPAY ==
[2024-03-01 07:38] VITALS: BMI 17.9
--- NOTE | 2024-03-02 15:04 | HO.ANESPROP2 ---
HPI - Anesthesia Eval Consult details Narrative: 63yo F for Right Cataract Extraction IOL Insertion Medically Cleared No previous cataract on record PMF Active Problems Active Problems: All Active Problems Preop exam for internal medicine (Acute) Pancolitis (Acute) Cataract, right eye (Acute) Small bowel obstruction (Acute) Thoracic back pain (Acute) Gallbladder sludge (Acute) Palpitations (Acute) Cervicalgia (Acute) Colon cancer screening (Acute) Colonoscopy refused (Acute) Generalized anxiety disorder (Acute) Annual physical exam (Acute) Musculoskeletal neck pain (Acute) Right hand pain (Acute) Numbness and tingling in both hands (Acute) Hemorrhoid (Acute) Hearing loss (Acute) Bilateral hand numbness (Acute) Trigger finger, right (Acute) Neck pain (Acute) Knee pain, bilateral (Acute) MRSA exposure (Acute) Hypercholesterolemia (Acute) GERD (gastroesophageal reflux disease) (Acute) Tobacco abuse (Acute) Hypothyroid (Acute) Vitamin B12 deficiency (Acute) Past Medical History Medical History (Updated 02/14/24 @ 15:15 by Dominik Alas MD) Generalized anxiety disorder Hypercholesterolemia Colonoscopy refused Cataract, left eye Anemia GERD (gastroesophageal reflux disease) Tobacco abuse Hypothyroid Vitamin B12 deficiency Family History Family History (Updated 02/14/24 @ 15:19 by Dominik Alas MD) Father Hypertension CVD (cardiovascular disease) Bladder cancer Mother CVD (cardiovascular disease) Hypertension Lymphoma Maternal Grandmother Uterine cancer Breast cancer Maternal Aunt Ovarian cancer Sister No problems noted. Surgical History Surgical History History of eye surgery Social History Social History (Updated 02/14/24 @ 15:20 by Dominik Alas MD) Housing: Apartment Are you a primary primary care physician to a significant other at home: No Do you presently have visiting nurse or other home services: No Alcohol intake: former Patient Tobacco Use Status: Current everyday Tobacco user Tobacco use type: Cigarette Cigarette Packs Per Day: 1 Cigarettes Per Day: 20.0 Years Smoked: less than half pack per day 12/2020, pack a day 12/2021 e-Cigarette/Vaping Use: Never Used Second Hand Smoke Exposure: Yes Are you DNR?: No Advance Directives: No Advance Directives Information Provided: No Advance Directives on File: No Patient : No : No service: No Current occupational status: employed 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 /[employer] Cognitive needs: No Hearing needs: No Vision needs: Yes Meds Allergies Allergy/AdvReac Type Severity Reaction Status Date / Time sulfamethoxazole Allergy Severe upset Verified 02/14/24 14:49 [From Bactrim] stomach trimethoprim [From Bactrim] Allergy Severe upset Verified 02/14/24 14:49 stomach Penicillins [PENICILLINS] Allergy Unknown HIVES Verified 02/14/24 14:49 simvastatin [SIMVASTATIN] Allergy Unknown JOINT PAIN Verified 02/14/24 14:49 omeprazole AdvReac Intermediate Headache Verified 02/14/24 14:49 Home Medications ?Medication ?Instructions ?Recorded ?Confirmed ?Last Taken ?Type cholecalciferol (vitamin D3) 50 50 mcg PO DAILY 08/21/20 03/01/24 Unknown History mcg (2,000 unit) capsule cyanocobalamin (vitamin B-12) 1,000 mcg PO DAILY 08/21/20 03/01/24 Unknown History 1,000 mcg capsule ferrous sulfate 325 mg (65 mg 325 mg PO DAILY 08/21/20 03/01/24 Unknown History iron) tablet (Feosol) lactobacillus combination no.4 3 3,000 mmu cells PO DAILY 05/17/23 03/01/24 Unknown History billion cell capsule (Probiotic) Exam Height,Weight and Vital Signs: Height 5 ft 2 in Weight 44.452 kg Assessment and Plan Assessment Anesthesia Assessment: Chart Reviewed
[2024-03-06 06:51] VITALS: BP 116/76; PULSE 77; RESP 18; TEMP 36.6; O2SAT 95; BMI 17.9
[2024-03-06] MEDS: Lactated Ringers 500 ML 50 ML IV (06:53)
[2024-03-06] MEDS: Tetracaine HCl/PF 0.5% Oph Sol 4 ML DROPS 1 DROP EYE-RIGHT (06:54)
[2024-03-06] MEDS: Ketorolac Tromethamine 0.5% Op 10 ML DROPS 1 DROP EYE-RIGHT ×3 (06:55→07:01)
[2024-03-06] MEDS: Phenylephrine HCL 2.5% Oph SoL 2 ML BOTTLE 1 DROP EYE-RIGHT ×3 (06:55→07:01)
[2024-03-06] MEDS: Tropicamide 1 % Ophth Sol 3 ML BTL 1 DROP EYE-RIGHT ×3 (06:55→07:01)
--- NOTE | 2024-03-06 07:27 | MHC.SHP ---
Pre-Procedural Eval Section A - 24 Hr Update-Section A only Date of Service: 03/06/24 The patient is an INPATIENT: No Changes since office visit: No Cold of Flu in the past 2 weeks, No New Medical Problems, No Changes in Medication and No Patient answered all questions The patient has been examined within 24 hours of the surgical procedure. The History & Physical has been completed within 30 days and I have reviewed it.: Yes Section B - Complete if H&P > 30 days Chief Complaint: Age-related nuclear cataract, right eye Allergies: Allergies Allergy/AdvReac Type Severity Reaction Status Date / Time sulfamethoxazole Allergy Severe upset Verified 03/06/24 07:02 [From Bactrim] stomach trimethoprim [From Bactrim] Allergy Severe upset Verified 03/06/24 07:02 stomach Penicillins [PENICILLINS] Allergy Unknown HIVES Verified 03/06/24 07:02 simvastatin [SIMVASTATIN] Allergy Unknown JOINT PAIN Verified 03/06/24 07:02 omeprazole AdvReac Intermediate Headache Verified 03/06/24 07:02 Plan Diagnosis/Plan: Unchanged I have reviewed the history and physical and performed a pertinent physical examination on my patient. No changes have occurred unless specified. Time Spent With Patient Time: Total time managing care of this patient today ____ minutes.
--- NOTE | 2024-03-06 08:44 | HO.PNOPHT ---
Ophthalmology Procedure Procedure Date of Service: 03/06/24 Ophthalmology Viscoelastic: Healon Duet Dual Pack Pro Ophthalmology Lenses: IOL Acrysof MP - [id number] (25.5) Procedure Notes: PREOPERATIVE DIAGNOSIS: Decreased visual acuity right eye secondary to cataract POSTOPERATIVE DIAGNOSIS: Same PROCEDURE: Right cataract extraction with intraocular lens insertion SURGEON: Luiz Jacobo M.D. ANESTHESIA: Topical ESTIMATED BLOOD LOSS: None COMPLICATIONS: None After obtaining informed consent, the patient was brought to the operating room suite and placed in the supine position. After adequate sedation per anesthesia, topical drops of Tetracaine were given to the right eye. The eye was then prepped and draped in the usual sterile fashion. The operating room microscope was then positioned over the operative eye and a lid speculum placed. A paracentesis was created. Viscoelastic was then instilled into the anterior chamber. A three plane incision was then created temporally, utilizing a 2.85 mm keratome. Capsulotomy forceps were then utilized to create a circular tear capsulotomy. Hydrodissection and hydrodelineation were carried out until adequate mobilization of the nucleus occurred. Phacoemulsification was then utilized to remove the dense central nucleus followed by removal of the cortical material utilizing the automated aspiration irrigation unit. Viscoelastic was instilled into the posterior capsular bag followed by placement of a posterior chamber intraocular lens without difficulty. The residual Viscoelastic was then removed utilizing the automated IA machine. The wound was checked and found to be watertight. The patient tolerated the procedure well and the lid speculum was removed. Intracameral injection of Vigamox 0.1 mL followed by a subtenon injection of Kenalog-40 0.2 mL were administered. The patient will be seen in the a.m.
[2024-03-06 09:48] VITALS: BP 117/75; PULSE 74; RESP 16; TEMP 37.2; O2SAT 96
== END 2024-03-06 09:50 | disposition home or self-care (01) ==
PROVIDERS: PCP Internal Medicine; Visit Provider Ophthalmology
PROC: (CPT 66985; principal; 2024-03-06 08:30)
DX: H25.11 Age-related nuclear cataract, right eye (principal); H52.4 Presbyopia; Z83.511 Family history of glaucoma; H18.413 Arcus senilis, bilateral; H40.033 Anatomical narrow angle, bilateral; D64.9 Anemia, unspecified; E07.9 Disorder of thyroid, unspecified; Z79.899 Other long term (current) drug therapy; Z88.0 Allergy status to penicillin; Z88.1 Allergy status to other antibiotic agents; Z88.8 Allergy status to other drugs, medicaments and biological substances; F17.210 Nicotine dependence, cigarettes, uncomplicated
CPT/HCPCS: 66984; J3301; V2630

== ENCOUNTER 2024-04-24 14:23 | Outpatient (AMB) | payer OTHER, SELFPAY ==
[2024-04-24 14:52] VITALS: BP 108/62; PULSE 83; TEMP 37.3; O2SAT 93; BMI 17.4
--- NOTE | 2024-04-24 14:52 | MHC.OFFWIV ---
Intake Vital Signs 04/24/24 14:52 Height 5 ft 2 in Weight 95 lb BMI 17.4 BP 108/62 Blood Pressure Location Rt brachial Position Sitting Pulse 83 Pulse Source Pulse Oximeter Temp 99.2 F Temp Source Oral Pulse Oximetry (%) 93 Oxygen Delivery Method Room Air Intake Visit Reasons: EP cough/SOB Intake Note: pt is here for cough and SOB while coughing Patient Tobacco Use Status: Current everyday Tobacco user Allergies sulfamethoxazole [From Bactrim] Allergy (Severe, Verified 04/24/24 14:55) upset stomach trimethoprim [From Bactrim] Allergy (Severe, Verified 04/24/24 14:55) upset stomach Penicillins [PENICILLINS] Allergy (Unknown, Verified 04/24/24 14:55) HIVES simvastatin [SIMVASTATIN] Allergy (Unknown, Verified 04/24/24 14:55) JOINT PAIN omeprazole Adverse Reaction (Intermediate, Verified 04/24/24 14:55) Headache Do you need a note to return to daycare/school/sports/work: No HPI HPI Comments History of Present Illness Details Patient presents to the walk in for 1 week cough Denies fever, chest pain, palpitations, syncope, weakness Denies headache, ear pain, sore throat. Started on Z-Seamus 2 days ago, reports feels the same if not worse today Cough productive of clear sputum Has albuterol inhaler but did not use, was afraid she could not use it while taking Z-Seamus PFSH Medical History (Updated 04/24/24 @ 15:38 by Chel Red APRN, MACHINE BURRER) Generalized anxiety disorder Hypercholesterolemia Colonoscopy refused Cataract, left eye Anemia GERD (gastroesophageal reflux disease) Tobacco abuse Hypothyroid Vitamin B12 deficiency Surgical History (Updated 03/06/24 @ 07:12 by Shilpi Mckeon RN) Hx of cholecystectomy History of eye surgery Family History (Updated 02/14/24 @ 15:19 by Dominik Alas MD) Father Hypertension CVD (cardiovascular disease) Bladder cancer Mother CVD (cardiovascular disease) Hypertension Lymphoma Maternal Grandmother Uterine cancer Breast cancer Maternal Aunt Ovarian cancer Sister No problems noted. 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 Answers questions appropriately. Fully engaged in examination. Skin: warm, dry, intact HEENT: TMs intact bilaterally, without redness. Posterior pharynx without erythema or exudate. Sclera without icterus or injection. Cardiac: External chest normal in appearance. Respiratory: LSCTAB. diminished at bases Abdomen: without gross distension. Neurological: Oriented to person, place, time and situation. Thought process intact. Psychiatric: Appropriate mood and affect. Good judgment and insight. Assessment & Plan Assessment & Plan (1) Bronchitis: Code(s): J40 - Bronchitis, not specified as acute or chronic Plan Complete Z-Seamus as prescribed Benzonatate 100 mg p.o. b.i.d. as needed Prednisone 40 mg p.o. daily x5 days, patient advised on cautions for use Continue with albuterol inhaler 1 puff every 4-6 hours as needed Follow up with PCP or return here for any new or worsening symptoms Medications: New benzonatate 100 mg PO BID PRN 20 caps 0RF cough prednisone 40 mg (2 x 20 mg) PO DAILY 5 days 10 tabs 0RF Coding Level of Care Code Est Pt Level 3 (07930) Diagnoses Bronchitis J40
== END 2024-04-24 15:49 | disposition home or self-care (01) ==
PROVIDERS: PCP Internal Medicine; Visit Provider Registered Nurse Emergency
DX: J40 Bronchitis, not specified as acute or chronic (principal)
CPT/HCPCS: 99213

== ENCOUNTER 2024-07-11 14:44 | Outpatient (AMB) | payer OTHER, SELFPAY ==
[2024-07-11 14:45] VITALS: BP 104/68; BMI 17.6
--- NOTE | 2024-07-11 14:45 | MHC.PC.OV ---
Vital Signs 07/11/24 14:45 Height 5 ft 2 in Weight 43.545 kg BMI 17.6 BP 104/68 Blood Pressure Location Lt brachial Position Sitting Intake Visit Reasons: ANNUAL Water Rights Specialist Required: No Accompanied by: Self / Same As Patient Allergies sulfamethoxazole [From Bactrim] Allergy (Severe, Verified 07/11/24 14:47) upset stomach trimethoprim [From Bactrim] Allergy (Severe, Verified 07/11/24 14:47) upset stomach Penicillins [PENICILLINS] Allergy (Unknown, Verified 07/11/24 14:47) HIVES simvastatin [SIMVASTATIN] Allergy (Unknown, Verified 07/11/24 14:47) JOINT PAIN omeprazole Adverse Reaction (Intermediate, Verified 07/11/24 14:47) Headache Medication List - Last Reconciled 07/11/24 by Dominik Alas MD cholecalciferol (vitamin D3) 50 mcg PO DAILY cyanocobalamin (vitamin B-12) 1,000 mcg PO DAILY ferrous sulfate (Feosol) 325 mg PO DAILY folic acid 1 mg PO DAILY 90 days hydrocortisone 2.5% (Anusol-HC) 1 appl MA BID-QID PRN lactobacillus combination no.4 (Probiotic) 3,000 mmu cells PO DAILY levothyroxine 88 mcg PO DAILY 90 days lidocaine 5% 1 patch topical DAILY lorazepam (Ativan) 0.5 mg PO BID PRN metoprolol succinate ER 12.5 mg (1/2 x 25 mg) PO DAILY pantoprazole 40 mg PO DAILY 30 days Tobacco use date assessed: 07/11/24 Dental Screening Dental Screen Date: 07/11/24 Did you have a dental visit in the last 12 months?: No Did you have a dental problem in the last 6 months where you did not have access to dental care?: No Was dental information given to patient?: Patient declined HPI ANNUAL HPI Details 64-year-old female smoker with a history of hypothyroidism GERD hypercholesterolemia generalized anxiety disorder last seen in February 14 2024 for preop for cataract surgery. Patient is here for physical exam. Mammogram is in [facility], refused colonoscopy. April urgent care visit for bronchitis treated with Z-Seamus and prednisone albuterol and Tessalon decline lung cancer screening . [facility] Medical History (Updated 07/11/24 @ 15:01 by Dominik Alas MD) Generalized anxiety disorder Hypercholesterolemia Colonoscopy refused Cataract, left eye Anemia GERD (gastroesophageal reflux disease) Tobacco abuse Hypothyroid Vitamin B12 deficiency Surgical History (Updated 03/06/24 @ 07:12 by Shilpi Mckeon RN) Hx of cholecystectomy History of eye surgery Family History (Updated 07/11/24 @ 14:57 by Dominik Alas MD) Father Hypertension CVD (cardiovascular disease) Bladder cancer Mother CVD (cardiovascular disease) Hypertension Lymphoma Maternal Grandmother Uterine cancer Breast cancer Maternal Aunt Ovarian cancer Sister CVD (cardiovascular disease) Social History (Updated 02/14/24 @ 15:20 by Dominik Alas MD) Housing: Apartment Are you a primary palliative care specialist to a significant other at home: No Do you presently have visiting nurse or other home services: No Alcohol intake: former Patient Tobacco Use Status: Current everyday Tobacco user Tobacco use type: Cigarette Cigarette Packs Per Day: 1 Cigarettes Per Day: 20.0 Years Smoked: less than half pack per day 12/2020, pack a day 12/2021 e-Cigarette/Vaping Use: Never Used Second Hand Smoke Exposure: Yes service: No Current occupational status: employed 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 1. Little interest or pleasure in doing things: not at all 2. Feeling down, depressed, or hopeless: not at all 3. Trouble falling or staying asleep, or sleeping too much: more than half the days 4. Feeling tired or having little energy: more than half the days Source: Developed by Drs. Piero Reyes, Millie Alvarado, Patrice Keita and colleagues, with an educational anila from [employer]. Thrive Questionnaire Date Thrive assessed: 11/22/23 I am a: Patient What is your living situation today?: I have a steady place to live Within the past 12 months, did the food you bought not last and you didn't have the money to get more?: Never true Within the past 12 months, did you worry whether your food would run out before you got money to buy more?: Never true Do you have trouble paying for medicines?: No Do you have trouble getting transportation to medical appointments?: No Do you have trouble paying your heating and electricity bill?: No Do you have trouble taking care of your child, family member or friend?: No Do you have trouble with day-to-day activities such as bathing, preparing meals, shopping, managing finances, etc.?: No Are you currently unemployed and looking for a job?: No Are you interested in more education?: No Please select the resources that you would like help with: None Currently or been in a relationship where the following occur: No concerns reported THRIVE Score: 0 AUDIT C Alcohol Use Questionnaire (AUDIT-C) 1. How often do you have a drink containing alcohol?: Never Total Score: 0 VAL-7 AMB Questionnaire VAL-7 Date VAL - 7 assessed: 11/22/23 Feeling nervous, anxious, or on edge: 2 = More than half the days Not being able to stop or control worryin = More than half the days Worrying too much about different things: 2 = More than half the days Trouble relaxin = More than half the days Being so restless that it is hard to sit still: 1 = Several days Becoming easily annoyed or irritable: 2 = More than half the days Feeling afraid as if something awful might happen: 0 = Not at all Total VAL-7 score (0-4 normal; 5-9 mild; 10-14 moderate; 15-21 severe): 11 Source: Developed by Drs. Piero Reyes, Millie Alvarado, Patrice Keita and colleagues, with an educational anila from [employer]. Review of Systems Const Denies poor appetite and Denies weakness Eyes Denies no additional complaints ENT Reports Normal hearing present, Denies dizziness, Denies nasal congestion, Denies tinnitus and Denies sore throat Card Denies chest pain, Denies syncope, Denies rapid heart rate and Denies dyspnea Resp Denies cough and Denies dyspnea GI Denies change in stool character, Reports constipation, Denies diarrhea, Denies nausea and Denies vomiting Denies urinary frequency, Denies difficulty voiding and Denies dysuria Neuro Reports Normal hearing present, Denies confusion, Denies dizziness, Denies syncope and Denies weakness Psych Denies confusion Physical exam (Primary Care) Vital Signs: Last Vital Signs BP 104/68 07/11/24 14:45 BMI result Body Mass Index 17.6 Tobacco/Smoking Status: Tobacco use Status Tobacco use date assessed 07/11/24 07/11/24 14:50 Patient Tobacco Use Status Current everyday Tobacco 07/11/24 14:50 Tobacco use type Cigarette 07/11/24 14:50 e-Cigarette/Vaping Use Never Used 07/11/24 14:50 Thrive Assessment: Date of Thrive Assessment Date Thrive assessed 11/22/23 07/11/24 14:50 Currently or been in a relationship where the following occur: No concerns reported Const General: No confusion Orientation/consciousness: No confusion HENMT Head: Yes normocephalic Ears: external ears normal and TM's normal bilaterally Face and sinus: Yes normal facial exam Mouth: moist mucous membranes Throat: Yes tonsils normal Eyes Conjunctivae: conjunctivae normal Pupils: Equal, round and reactive pupils present and Pupil accommodation reflex normal Direct Ophthalmoscopy: normal light reflex Neck Neck: No lymphadenopathy Thyroid: Thyroid normal Chest Chest palpation & inspection: normal inspection of the chest Resp Effort & Inspection: normal respiratory effort and no audible wheezes Auscultation: clear to auscultation bilaterally, no crackles, no wheezes and lung sounds not diminished Cardio Rate: regular rate Rhythm: regular rhythm Peripheral pulses: radial pulses present and dorsalis pedis present GI Palpation (GI): no masses Auscultation: normal bowel sounds and normoactive bowel sounds Rectal Exam - Female: deferred Skin General skin exam: no rashes or lesions noted Rashes: no rashes Neuro General: No confusion Cranial nerves: Yes Equal, round and reactive pupils present and Yes Normal hearing present Cognition (Neuro): normal cognition Gait exam (Neuro): Normal gait present Motor exam (neuro): 5/5 motor strength present throughout Deep tendon reflexes (DTR's): Right brachioradialis reflex intensity grade: 2+, Left brachioradialis reflex intensity grade: 2+, Right patellar reflex intensity grade: 2+ and Left patellar reflex intensity grade: 2+ Extrem General: No edema Immunizations pneumoc 20-wil conj-dip cr(PF) 0.5 mL IM syringe Performing Provider: Dominik Alas MD [place] [facility] [place] [facility] Administered by: Chica Manriquez CMA on 07/11/24 15:14 Dose Route Admin Location Dispensed Lot Number Expiration Date NDC Spooler Operator 0.5 mL IM Left Deltoid 0.5 mL [id number] 07/09/25 6719-9402-29 WYETH/PFIZER VIS Given Date VIS Provided VIS Publication Date 07/11/24 Single Vaccine 21 Eligibility Eligibility Date Funding Source Not [facility] Eligible 07/11/24 Private Assessment and Plan Assessment & Plan (1) Annual physical exam: Code(s): Z00.00 - Encounter for general adult medical examination without abnormal findings Plan: Patient is advised to eat healthy, keep well hydrated, keep active and have adequate sleep. (2) Tobacco abuse: Comment: 08/2022 stopped - continuing to smoke 02/2023 Code(s): Z72.0 - Tobacco use Plan: Patient is strongly advised to stop smoking! (3) Hypothyroid: Code(s): E03.9 - Hypothyroidism, unspecified Qualifiers: Hypothyroidism type: acquired Qualified Code(s): E03.9 - Hypothyroidism, unspecified Plan: Continue with thyroid medication 4 blood (4) GERD (gastroesophageal reflux disease): Code(s): K21.9 - Gastro-esophageal reflux disease without esophagitis Qualifiers: Esophagitis presence: without esophagitis Qualified Code(s): K21.9 - Gastro-esophageal reflux disease without esophagitis Plan: Avoid the foods that causes that usually spicy foods, tomato products, juices, coffee, soda and foods that your sensitive to. After eating do not lie down, allow 3-4 hours before in lie down. And keep the head of bed above 30 degrees to avoid the acid from going up. (5) Hypercholesterolemia: Code(s): E78.00 - Pure hypercholesterolemia, unspecified Plan: Avoid fried foods, chicken skin, eggs, butter margarine, pastries and meat. Be it pork or beef they have a lot of cholesterol LDL goal of less than 130 and triglyceride of less than 150 (6) Generalized anxiety disorder: Comment: Declined referral for counseling Code(s): F41.1 - Generalized anxiety disorder Plan: Continue with present medication of lorazepam as needed (7) SVT (supraventricular tachycardia): Code(s): I47.10 - Supraventricular tachycardia, unspecified (8) Actinic keratosis: Code(s): L57.0 - Actinic keratosis (9) Colon cancer screening: Code(s): Z12.11 - Encounter for screening for malignant neoplasm of colon Orders: Orders Complete Blood Count Auto Diff 6 Months I47.10 - Supraventricular tachycardia, unspecified Vitamin B12 and Folate 6 Months I47.10 - Supraventricular tachycardia, unspecified Vitamin D 25-OH Total 6 Months I47.10 - Supraventricular tachycardia, unspecified Pneumococcal 20 Immunization Today Z23 - Encounter for immunization Comprehensive Met. Panel 6 Months I47.10 - Supraventricular tachycardia, unspecified Thyroid Stimulating Hormone 6 Months I47.10 - Supraventricular tachycardia, unspecified Lipid Panel 6 Months E78.00 - Pure hypercholesterolemia, unspecified, I47.10 - Supraventricular tachycardia, unspecified Magnesium 6 Months I47.10 - Supraventricular tachycardia, unspecified Referrals Dermatology Referral L57.0 - Actinic keratosis Gastroenterology Referral Z12.11 - Encounter for screening for malignant neoplasm of colon Cardiology Referral I47.10 - Supraventricular tachycardia, unspecified Medications: New pneumoc 20-wil conj-dip cr(PF) 0.5 mL IM ONCE 0.5 mL 0RF Z23 - Encounter for immunization Refilled lorazepam (Ativan) 0.5 mg PO BID PRN 60 tabs 2RF anxiety F32.9 - Major depressive disorder, single episode, unspecified, F41.9 - Anxiety disorder, unspecified Coding Level of Care Code Est Pt Prev Care 40-64y(34159) Diagnoses Annual physical exam Z00.00 Tobacco abuse Z72.0 Acquired hypothyroidism E03.9 Hypothyroidism type: acquired Gastroesophageal reflux disease without esophagitis K21.9 Esophagitis presence: without esophagitis Hypercholesterolemia E78.00 Generalized anxiety disorder F41.1 SVT (supraventricular tachycardia) I47.10 Actinic keratosis L57.0 Colon cancer screening Z12.11
== END 2024-07-11 15:21 | disposition home or self-care (01) ==
PROVIDERS: PCP Internal Medicine; Visit Provider Internal Medicine
DX: Z00.00 Encounter for general adult medical examination without abnormal findings (principal); K21.9 Gastro-esophageal reflux disease without esophagitis; Z72.0 Tobacco use; Z23 Encounter for immunization; I47.10 Supraventricular tachycardia, unspecified; E03.9 Hypothyroidism, unspecified; L57.0 Actinic keratosis; F41.1 Generalized anxiety disorder; E78.00 Pure hypercholesterolemia, unspecified; Z12.11 Encounter for screening for malignant neoplasm of colon
CPT/HCPCS: 90471; 90677; 99396

== ENCOUNTER 2024-09-18 14:21 | Outpatient (REF) | payer OTHER, SELFPAY ==
--- NOTE | ~2024-09-18 | XR_ITS ---
EXAMINATION: XR KNEE, LEFT CLINICAL INFORMATION: Pain in left knee COMPARISON: Left knee x-ray series November 2018 TECHNIQUE: Four views of the left knee. FINDINGS: No fracture or joint effusion. Alignment is anatomic. Joint spaces are maintained. No abnormal soft tissue calcification. XR/XR knee LT 3V IMPRESSION: Normal left knee. Electronically signed by: Roberto Rivas MD 09/19/2024 08:27 AM EST
== END 2024-09-18 14:22 | disposition home or self-care (01) ==
LOC: HO.HMGCX 14:21
PROVIDERS: PCP Internal Medicine; Visit Provider Registered Nurse
DX: M25.562 Pain in left knee (principal)
CPT/HCPCS: 73562; 99212

== ENCOUNTER 2024-09-18 14:21 | Outpatient (AMB) | payer OTHER, SELFPAY ==
[2024-09-18 14:44] VITALS: BP 104/68; PULSE 72; O2SAT 97; BMI 17.6
--- NOTE | 2024-09-18 14:44 | AM.OFFWIN_ITS ---
Intake Vital Signs 09/18/24 14:44 Height 5 ft 2 in Weight 96 lb 8 oz BMI 17.6 BP 104/68 Blood Pressure Location Lt brachial Position Sitting Pulse 72 Pulse Source Pulse Oximeter Pulse Oximetry (%) 97 Oxygen Delivery Method Room Air Intake Visit Reasons: EP-lt knee and ankle pain Intake Note: Patient here for left knee and ankle pain after a fall last week. she has been trying OTC meds which helped but stopped because she was taking it to frequently. Patient Tobacco Use Status: Current everyday Tobacco user Allergies sulfamethoxazole [From Bactrim] Allergy (Severe, Verified 09/18/24 14:45) upset stomach trimethoprim [From Bactrim] Allergy (Severe, Verified 09/18/24 14:45) upset stomach Penicillins [PENICILLINS] Allergy (Unknown, Verified 09/18/24 14:45) HIVES simvastatin [SIMVASTATIN] Allergy (Unknown, Verified 09/18/24 14:45) JOINT PAIN omeprazole Adverse Reaction (Intermediate, Verified 09/18/24 14:45) Headache Do you need a note to return to daycare/school/sports/work: No HPI EP-lt knee and ankle pain HPI Details This note is constructed using voice recognition software. While every effort has been made to ensure accuracy, correctional nurse errors may have been included. The patient is a 64 year old female who presents to the clinic today with left knee pain after a fall. She reports that she was attempting to climb over a baby gate in her home, when her right knee gave out causing her to fall and land on her left knee with her left leg behind her. She reports that she also struck her left ankle at the time of the fall and that initially hurt quite a bit, however it has improved since then. The pain in the left knee is in the lateral aspect, worse if you touch the area, or if she puts any pressure on to her foot. She works on her feet, 6 days per week, which has not helped the pain. She is taking ibuprofen 400 mg twice daily for the pain, and feels that that is too much medication to take for pain. [facility] [place] Medical History (Updated 07/11/24 @ 15:01 by Dominik Alas MD) Generalized anxiety disorder Hypercholesterolemia Colonoscopy refused Cataract, left eye Anemia GERD (gastroesophageal reflux disease) Tobacco abuse Hypothyroid Vitamin B12 deficiency Surgical History (Updated 03/06/24 @ 07:12 by Shilpi Mckeon RN) Hx of cholecystectomy History of eye surgery Family History (Updated 07/11/24 @ 14:57 by Dominik Alas MD) Father Hypertension CVD (cardiovascular disease) Bladder cancer Mother CVD (cardiovascular disease) Hypertension Lymphoma Maternal Grandmother Uterine cancer Breast cancer Maternal Aunt Ovarian cancer Sister CVD (cardiovascular disease) Social History (Updated 02/14/24 @ 15:20 by Dominik Alas MD) Housing: Apartment Are you a primary wound care specialist to a significant other at home: No Do you presently have visiting nurse or other home services: No Alcohol intake: former Patient Tobacco Use Status: Current everyday Tobacco user Tobacco use type: Cigarette Cigarette Packs Per Day: 1 Cigarettes Per Day: 20.0 Years Smoked: less than half pack per day 12/2020, pack a day 12/2021 e-Cigarette/Vaping Use: Never Used Second Hand Smoke Exposure: Yes service: No Current occupational status: employed 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 /[employer] Cognitive needs: No Hearing needs: No Vision needs: Yes Review of Systems Const All systems reviewed & are unremarkable except as noted in HPI and below Physical Exam Vital Signs: Last Vital Signs Pulse 72 09/18/24 14:44 BP 104/68 09/18/24 14:44 Pulse Ox 97 09/18/24 14:44 Oxygen Delivery Method Room Air 09/18/24 14:44 BMI result Body Mass Index 17.6 Const General: cooperative, healthy appearing, comfortable, no acute distress and well developed Orientation/consciousness: patient oriented x3 Limitations: no limitations Resp Effort & Inspection: normal respiratory effort and able to speak in complete sentences Skin General skin exam: no rashes or lesions noted Neuro General: patient oriented x3 Extrem Other: Left knee FROM. TTP lateral joint line. No echymosis, edema, or erythema. Strength 5/5. Distal neurovascular exam intact. General: Yes normal to inspection Results Reviewed Results Reviewed: XR images contemporaneously read by me without obvious fracture on imaging. Assessment & Plan Assessment & Plan (1) Left knee pain: Code(s): M25.562 - Pain in left knee Qualifiers: Chronicity: acute Qualified Code(s): M25.562 - Pain in left knee Plan: X-ray obtained without obvious fracture. Advised rest, ice, compression, elevation, and NSAIDs for pain. Discussed trial prednisone for anti- inflammatory effects, however patient declined. Geoff wrap applied. Advised patient to follow up with worsening symptoms or failure to resolve. Plan See above for full details and plan. Orders: Orders XR knee LT 3V Today M25.562 - Pain in left knee Coding Level of Care Code Est Pt Level 4 (36575) Diagnoses Acute pain of left knee M25.562 Chronicity: acute
== END 2024-09-18 15:25 | disposition home or self-care (01) ==
PROVIDERS: PCP Internal Medicine; Visit Provider Registered Nurse
DX: M25.562 Pain in left knee (principal)

== ENCOUNTER 2024-12-27 14:34 | Outpatient (REF) | payer OTHER, SELFPAY ==
--- OUTSIDE RECORDS SUMMARY | 2024-12-28 10:48 | XMS_ITS ---
Author Organization [facility] Address [address] [place] [address] Care Team Providers Care Venetian Blind Washer Name Role Phone Dominik Alas MD Primary Care Provider Piero Hayward Unavailable [phone] REASON FOR VISIT cancelling egd /colonoscopy Encounters Encounter Location Date Provider Diagnosis [facility] [address] [place] [address] 12/07/2023 Piero Cedeno PLAN OF TREATMENT No Information
--- OUTSIDE RECORDS SUMMARY | 2024-12-28 10:48 | XMS_ITS ---
Author Organization [facility] Address [address] [place] [address] Care Team Providers Care Duplicator Punch Set Up Operator Name Role Phone Dominik Alas MD Primary Care Provider Piero Hayward Unavailable [phone] REASON FOR VISIT colon screening Encounters Encounter Location Date Provider Diagnosis [facility] [address] [place] [phone] 09/17/2023 Piero Cedeno PLAN OF TREATMENT No Information
--- OUTSIDE RECORDS SUMMARY | 2024-12-28 10:48 | XMS_ITS | Patient Health Record ---
Author Organization [facility] Address [address] [place] [address] Care Team Providers Care Wort Extractor Name Role Phone Dominik Alas MD Primary Care Provider Piero Hayward [phone] ALLERGIES Allergen (clinical drug ingredient) Drug/Non Drug [...] unspecified whether esophagitis present (K21.9) Active confirmed [id number] Problem Abnormal CT scan, colon (R93.3) Active confirmed 246320691 Problem Colon cancer screening (Z12.11) Active confirmed [id number] PLAN OF TREATMENT Future Test Test Name Order Date UPPER GI ENDOSCOPY 04/21/2023 COLONOSCOPY 04/21/2023 Insurance Providers Payer Name Payer Address Payer Phone Subscriber Number Group Number Insured Name Patient Relationship to Insured Coverage Start Date Coverage End Date [facility] [address] [id number] EDDIE MERIDA Self - patient is the insured MEDICAL (GENERAL) HISTORY Medical History History ICD Code Hypothyroidism SVT's Anxiety Denies ND,DM,CVA,Lung disease,renal dise ase Bowel obstruction at [facility]-treated with a NG tube, no surgery--the patient reports that she was told that this was due to adhesions Acute onset of symptoms of a bdominal pain, vomiting, and diarrhea resulting in a hospitalization from 04/07-04/10/23. Her CT at [facility] described a pancolitis and possible appendicitis, although surgical consultation did not think she had appendicitis and she did not undergo surgery. She did well with a course of IV and subsequent oral antibiotics with resolution of her symptoms Surgical History Surgery Date(Month/Year) Lap. CCY-08/2022 Eye sugeries as a child Glaucoma surgery 2018
--- OUTSIDE RECORDS SUMMARY | 2024-12-28 10:48 | XMS_ITS ---
Author Organization [facility] Address [address] [place] [address] Care Team Providers Care Side Puller Name Role Phone Po Dominik GORE Primary Care Provider Piero Hayward Unavailable [phone] REASON FOR VISIT screening, gerd, abnormal ct scan Encounters Encounter Location Date Provider Diagnosis [facility] Out[facility] [address] [place] [phone] 12/13/2023 Piero Cedeno PLAN OF TREATMENT No Information
== END 2024-12-27 14:35 | disposition home or self-care (01) ==
LOC: HO.LNP 14:34
PROVIDERS: Visit Provider Internal Medicine
DX: R31.9 Hematuria, unspecified (principal)
CPT/HCPCS: 81003; 87086; 99212

== ENCOUNTER 2024-12-27 14:34 | Outpatient (AMB) | payer OTHER, SELFPAY ==
--- OUTSIDE RECORDS SUMMARY | 2024-12-27 14:36 | XMS_ITS | Patient Health Record ---
Author Organization [facility] Address [address] [place] [address] Care Team Providers Care Network Security Architect Name Role Phone Dominik Alas MD Primary Care Provider Piero Hayward [phone] ALLERGIES Allergen (clinical drug ingredient) Drug/Non Drug Allergy documented on EMR Reaction Allergy Type Onset Date Status Penicillin Unknown Drug Allergy Active simvastatin Simvastatin Unknown Drug Allergy Act sonal omeprazole Omeprazole Unknown Drug Allergy Activ e ciprofloxacin Cipro Unknown Drug Allergy Act sonal sulfamethoxazole / trimethoprim Bactrim Unknown Drug Allergy Active REASON FOR REFERRAL No Information MEDICATIONS Medication SIG (Take, Route, Frequency, Duration) Notes Start Date End Date Status Levothyroxine Sodium 88 MCG Oral for 30 Active LORazepam 0.5 MG Oral for 30 A ctive Metoprolol Succinate ER 25 MG TAKE 1/2 TABLET BY MOUTH DAILY Oral for 30 Active Iron 325 (65 Fe) MG 1 tablet Orally Thre e times a Week for 30 day(s) 04/21/2023 Active Vitamin B 12 100 MCG as directed Orally 04/21/2023 Active Folic Acid Xtra 04/21/2023 Act sonal Vitamin D (Cholecalciferol) 25 MCG (1000 UT) 1 capsule Orally Once a day for 30 day(s) 04/21/2023 Active Pantoprazole Sodium 40 MG 1 tablet Oral Once a day for 30 days Active IMMUNIZATIONS Vaccine Route Administration Date Status Comme nts Influenza Unknown 08/25/2022 Administered SOCIAL HISTORY Tobacco Use: Social History Observation Description Date Details (start date - stop date) Current Smoker NA - NA Sex Assigned At : Social History Observation Description Sex Assigned At Unknown Tobacco Use/Smoking Question Answer Notes Patient is a current smoker Alcohol Screen Question Answer Notes Did you have a drink containing alcohol in the p ast year? No Points 0 Interpretation Negative PROBLEMS Problem Type ICD Code Onset Dates Problem Status W/U Status Risk SNOMED Code Notes Problem Gastroesophageal reflux disease, unspecified whether esophagitis present (K21.9) Active confirmed 546416015 Problem Abnormal CT scan, colon (R93.3) Active confirmed 903947513 Problem Colon cancer screening (Z12.11) Active confirmed 760350271 PLAN OF TREATMENT Future Test Test Name Order Date UPPER GI ENDOSCOPY 04/21/2023 COLONOSCOPY 04/21/2023 Insurance Providers Payer Name Payer Address Payer Phone Subscriber Number Group Number Insured Name Patient Relationship to Insured Coverage Start Date Coverage End Date [facility] [id number] [id number] EDDIE MERIDA Self - patient is the insured MEDICAL (GENERAL) HISTORY Medical History History ICD Code Hypothyroidism SVT's Anxiety Denies SD,DM,CVA,Lung disease,renal dise ase Bowel obstruction at [facility]-treated with a NG tube, no surgery--the patient reports that she was told that this was due to adhesions Acute onset of symptoms of a bdominal pain, vomiting, and diarrhea resulting in a hospitalization from 04/07-04/10/23. Her CT at [place] described a pancolitis and possible appendicitis, although surgical consultation did not think she had appendicitis and she did not undergo surgery. She did well with a course of IV and subsequent oral antibiotics with resolution of her symptoms Surgical History Surgery Date(Month/Year) Lap. CCY-08/2022 Eye sugeries as a child Glaucoma surgery 2018
--- OUTSIDE RECORDS SUMMARY | 2024-12-27 14:36 | XMS_ITS ---
Author Organization [facility] Address [address] [place] [address] Care Team Providers Care Operations Intern Name Role Phone Po Dominik GORE Primary Care Provider Piero Hayward Unavailable [phone] REASON FOR VISIT screening, gerd, abnormal ct scan Encounters Encounter Location Date Provider Diagnosis [facility] [place] [facility] [place] [address] [place] [phone] 12/13/2023 Piero Cedeno PLAN OF TREATMENT No Information
--- OUTSIDE RECORDS SUMMARY | 2024-12-27 14:36 | XMS_ITS ---
Author Organization [facility] Address [address] [place] [address] Care Team Providers Care Brand Designer Name Role Phone Dominik Alas MD Primary Care Provider Piero Hayward Unavailable [phone] REASON FOR VISIT cancelling egd /colonoscopy Encounters Encounter Location Date Provider Diagnosis [facility] [address] [place] [address] 12/07/2023 Piero Cedeno PLAN OF TREATMENT No Information
--- OUTSIDE RECORDS SUMMARY | 2024-12-27 14:36 | XMS_ITS ---
Author Organization [facility] Address [address] [place] [address] Care Team Providers Care Criminal Judge Name Role Phone Dominik Alas MD Primary Care Provider Piero Hayward Unavailable [phone] REASON FOR VISIT colon screening Encounters Encounter Location Date Provider Diagnosis [facility] [address] [place] [id number] 09/17/2023 Piero Cedeno PLAN OF TREATMENT No Information
--- NOTE | 2024-12-27 15:07 | MHC.OFFWIV ---
Intake Vital Signs 12/27/24 15:13 BP 102/68 Blood Pressure Location Rt brachial Position Sitting Pulse 91 Pulse Source Pulse Oximeter Temp 98.4 F Temp Source Oral Pulse Oximetry (%) 98 Oxygen Delivery Method Room Air Intake Visit Reasons: EP ? UTI Intake Note: Patient here for cramping, irritation that started today. Patient Tobacco Use Status: Current everyday Tobacco user Allergies sulfamethoxazole [From Bactrim] Allergy (Severe, Verified 12/27/24 15:12) upset stomach trimethoprim [From Bactrim] Allergy (Severe, Verified 12/27/24 15:12) upset stomach Penicillins [PENICILLINS] Allergy (Unknown, Verified 12/27/24 15:12) HIVES simvastatin [SIMVASTATIN] Allergy (Unknown, Verified 12/27/24 15:12) JOINT PAIN omeprazole Adverse Reaction (Intermediate, Verified 12/27/24 15:12) Headache Do you need a note to return to daycare/school/sports/work: No HPI HPI Comments History of Present Illness Details She presents to office with ? blood in urine She said she thinks she saw pink on toilet paper when wiping after urination She noticed it again today so decided to come in No blood in toilet bowl She said just noticed blood on toilet paper; looked pink in coloration No blood clots. No similar symptoms in past She noticed associated cramping in lower pelvic area + pain currently as a 3/10 No medicine for it No clood thinner use No hx of kidney stones. She has had GB removed as only abdominal surgery No dysuria, but difficulty initiating urine (ongoing for a few days) Sometimes has urgency Normal bowel movements, without blood or melena (has sometimes with iron suppliments) [facility] Medical History (Updated 12/27/24 @ 15:28 by Ale Williamson PA-C) Generalized anxiety disorder Hypercholesterolemia Colonoscopy refused Cataract, left eye Anemia GERD (gastroesophageal reflux disease) Tobacco abuse Hypothyroid Vitamin B12 deficiency Surgical History (Updated 03/06/24 @ 07:12 by Shilpi Mckeon RN) Hx of cholecystectomy History of eye surgery Family History (Updated 07/11/24 @ 14:57 by Dominik Alas MD) Father Hypertension CVD (cardiovascular disease) Bladder cancer Mother CVD (cardiovascular disease) Hypertension Lymphoma Maternal Grandmother Uterine cancer Breast cancer Maternal Aunt Ovarian cancer Sister CVD (cardiovascular disease) Social History (Updated 02/14/24 @ 15:20 by Dominik Alas MD) Housing: Apartment Are you a primary pet caretaker to a significant other at home: No Do you presently have visiting nurse or other home services: No Alcohol intake: former Patient Tobacco Use Status: Current everyday Tobacco user Tobacco use type: Cigarette Cigarette Packs Per Day: 1 Cigarettes Per Day: 20.0 Years Smoked: less than half pack per day 12/2020, pack a day 12/2021 e-Cigarette/Vaping Use: Never Used Second Hand Smoke Exposure: Yes service: No Current occupational status: employed 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 /[employer] Cognitive needs: No Hearing needs: No Vision needs: Yes Review of Systems Const Denies chills, Denies fatigue and Denies fever(s) GI Denies hematochezia, Denies change in stool character, Reports GI cramping, Denies diarrhea, Denies nausea and Denies vomiting Reports hematuria, Reports difficulty voiding, Denies dysuria, Reports urinary urgency and Reports other (denies blood in underwear or vaginal bleeding) Musc Reports back pain and Denies myalgias Skin/Breast Denies rash Endo Denies fatigue Physical Exam Vital Signs: Last Vital Signs Temp 98.4 F 12/27/24 15:13 Pulse 91 12/27/24 15:13 BP 102/68 12/27/24 15:13 Pulse Ox 98 12/27/24 15:13 Oxygen Delivery Method Room Air 12/27/24 15:13 General: Non-toxic, NAD. Speaking full sentences. Skin: Warm dry throughout Eye: EOMI Respiratory: CTA bilaterally. No wheezes, rales or rhonchi Cardiac: RRR. No murmur Abdominal: BS present x 4. No rebound or guarding. No ttp light or deep palpation. No CVAT. No pulsitile mass or abdominal distention noted Neurology: Alert. No aphasia or facial droop. Gait without abnormality Psych: Good mood and affect Assessment & Plan Assessment & Plan (1) Hematuria: Code(s): R31.9 - Hematuria, unspecified Qualifiers: Hematuria type: unspecified type Qualified Code(s): R31.9 - Hematuria, unspecified Plan: Patient seen and evaluated. U/a: + blood without leuks or nitrates will send culture No CVAT or acute abdomen, low suspicion for passing stone currently. ER s/s discussed with pt Message sent to PCP to follow up in regards to issue and pt will monitor symptoms and call with change in blood noted Patient gave verbal understanding and had no additional questions or concerns at time of discharge All questions answered Orders: Orders Urine Culture Today R31.9 - Hematuria, unspecified Coding Level of Care Code Est Pt Level 3 (73455) Diagnoses Hematuria, unspecified type R31.9 Hematuria type: unspecified type
[2024-12-27 15:13] VITALS: BP 102/68; PULSE 91; TEMP 36.9; O2SAT 98
== END 2024-12-27 15:32 | disposition home or self-care (01) ==
PROVIDERS: PCP Internal Medicine; Visit Provider Physician Assistant
DX: R31.9 Hematuria, unspecified (principal); Z13.9 Encounter for screening, unspecified

== ENCOUNTER 2025-01-04 13:15 | Outpatient (REF) | payer OTHER, SELFPAY ==
--- NOTE | ~2025-01-04 | US_ITS ---
EXAMINATION: US KIDNEY BILATERAL HISTORY: R31.9 - Hematuria, unspecified TECHNIQUE: Real-time grayscale ultrasound imaging of the kidneys was performed and images were reviewed. COMPARISON: There are no prior studies for comparison. FINDINGS: Right kidney: The right kidney measures 9.3 x 5.1 x 5.5 cm. Renal parenchymal echotexture and thickness are normal. There are no masses. There is no hydronephrosis or renal calculi. Left Kidney: The left kidney measures 9.8 x 4.1 x 4.4 cm. Renal parenchymal echotexture and thickness are normal. There is a cyst at the lower pole measuring 1.9 x 1.0 x 1.1 cm. There is no hydronephrosis or renal calculi. US/US renal BI IMPRESSION: 1.9 x 1.0 x 1.1 cm cyst at the lower pole of the left kidney. Otherwise unremarkable renal ultrasound. Electronically signed by: Piero Pinto MD 01/04/2025 01:51 PM [facility]
--- OUTSIDE RECORDS SUMMARY | 2025-01-04 15:45 | XMS_ITS ---
Author Organization [facility] Address [address] [place] [address] Care Team Providers Care Rehab Tech Name Role Phone Po Dominik GORE Primary Care Provider Piero Hayward Unavailable [phone] REASON FOR VISIT screening, gerd, abnormal ct scan Encounters Encounter Location Date Provider Diagnosis [facility] Out[place] [address] [place] [phone] 12/13/2023 Piero Cedeno PLAN OF TREATMENT No Information
--- OUTSIDE RECORDS SUMMARY | 2025-01-04 15:45 | XMS_ITS ---
Author Organization [facility] Address [address] [place] [address] Care Team Providers Care Licensing And Registration Director Name Role Phone Dominik Alas MD Primary Care Provider Piero Hayward Unavailable [phone] REASON FOR VISIT cancelling egd /colonoscopy Encounters Encounter Location Date Provider Diagnosis [facility] [address] [place] [address] 12/07/2023 Piero Cedeno PLAN OF TREATMENT No Information
--- OUTSIDE RECORDS SUMMARY | 2025-01-04 15:45 | XMS_ITS ---
Author Organization [facility] Address [address] [place] [address] Care Team Providers Care Yard General Car Supervisor Name Role Phone Dominik Alas MD Primary Care Provider Piero Hayward Unavailable [phone] REASON FOR VISIT colon screening Encounters Encounter Location Date Provider Diagnosis [facility] [address] [place] [phone] 09/17/2023 Piero Cedeno PLAN OF TREATMENT No Information
--- OUTSIDE RECORDS SUMMARY | 2025-01-04 15:46 | XMS_ITS | Patient Health Record ---
Author Organization [facility] Address [address] [place] [address] Care Team Providers Care Image Processing Engineer Name Role Phone Po Dominik GORE Primary Care Provider Piero Hayward [phone] ALLERGIES Allergen (clinical drug ingredient) Drug/Non Drug Allergy documented on EMR Reaction Allergy Type Onset Date Status simvastatin Simvastatin Unknown Drug Allergy Act sonal omeprazole Omeprazole Unknown Drug Allergy Activ e ciprofloxacin Cipro Unknown Drug Allergy Act sonal Bactrim Unknown Drug Allergy Active Penicillin Unknown Drug Allergy Active REASON FOR REFERRAL [...] W/U Status Risk SNOMED Code Notes Problem Colon cancer screening (Z12.11) Active confirmed [id number] Problem Abnormal CT scan, colon (R93.3) Active confirmed 298664196 Problem Gastroesophageal reflux disease, unspecified whether esophagitis present (K21.9) Active confirmed [id number] PLAN OF TREATMENT Future Test Test Name Order Date UPPER GI ENDOSCOPY 04/21/2023 COLONOSCOPY 04/21/2023 Insurance Providers Payer Name Payer Address Payer Phone Subscriber Number Group Number Insured Name Patient Relationship to Insured Coverage Start Date Coverage End Date [facility] [address] [place] [address] [id number] EDDIE MERIDA Self - patient is the insured MEDICAL (GENERAL) HISTORY Medical History History ICD Code Hypothyroidism SVT's Anxiety Denies CA,DM,CVA,Lung disease,renal dise ase Bowel obstruction at [facility]-treated with a NG tube, no surgery--the patient reports that she was told that this was due to adhesions Acute onset of symptoms of a bdominal pain, vomiting, and diarrhea resulting in a hospitalization from 04/07-04/10/23. Her CT at [facility] described a pancolitis and possible appendicitis, although surgical consultation did not think she had appendicitis and she did not undergo surgery. She did well with a course of IV and subsequent oral antibiotics with resolution of her symptoms Surgical History Surgery Date(Month/Year) Lap. CCY-08/2022 Eye sugsheryl as a child Glaucoma surgery 2018
== END 2025-01-04 13:16 | disposition home or self-care (01) ==
LOC: HO.US 13:15
PROVIDERS: PCP Internal Medicine; Visit Provider Internal Medicine
DX: R31.9 Hematuria, unspecified (principal)
CPT/HCPCS: 76775

== ENCOUNTER → 2025-01-04 13:16 | Outpatient (BNV) | payer OTHER, SELFPAY | PROVIDERS: PCP Internal Medicine; Visit Provider Radiology Diagnostic Radiology | DX: R31.9 Hematuria, unspecified (principal) | CPT/HCPCS: 76775 ==

== ENCOUNTER 2025-01-09 08:10 | Outpatient (AMB) | payer OTHER, SELFPAY ==
--- OUTSIDE RECORDS SUMMARY | 2025-01-09 08:29 | XMS_ITS ---
Author Organization [facility] Address [address] [place] [address] Care Team Providers Care Spacecraft Systems Engineer Name Role Phone Po Dominik GORE Primary Care Provider Piero Hayward Unavailable [phone] REASON FOR VISIT screening, gerd, abnormal ct scan Encounters Encounter Location Date Provider Diagnosis [facility] [place] [address] [place] [phone] 12/13/2023 Piero Cedeno PLAN OF TREATMENT No Information
--- OUTSIDE RECORDS SUMMARY | 2025-01-09 08:29 | XMS_ITS ---
Author Organization [facility] Address [address] [place] [address] Care Team Providers Care Dye Range Tender Name Role Phone Dominik Alas MD Primary Care Provider Piero Hayward Unavailable [phone] REASON FOR VISIT colon screening Encounters Encounter Location Date Provider Diagnosis [facility] [address] [place] [phone] 09/17/2023 Piero Cedeno PLAN OF TREATMENT No Information
--- OUTSIDE RECORDS SUMMARY | 2025-01-09 08:29 | XMS_ITS ---
Author Organization [facility] Address [address] [place] [address] Care Team Providers Care Quality Control Analyst Name Role Phone Dominik Alas MD Primary Care Provider Piero Hayward Unavailable [phone] REASON FOR VISIT cancelling egd /colonoscopy Encounters Encounter Location Date Provider Diagnosis [facility] [address] [place] [address] 12/07/2023 Piero Cedeno PLAN OF TREATMENT No Information
--- OUTSIDE RECORDS SUMMARY | 2025-01-09 08:30 | XMS_ITS | Patient Health Record ---
Author Organization [facility] Address [address] [place] [address] Care Team Providers Care Voice Network Engineer Name Role Phone Po Dominik GORE Primary Care Provider Piero Hayward [phone] ALLERGIES Allergen (clinical drug ingredient) Drug/Non Drug Allergy documented on EMR Reaction Allergy Type Onset Date Status Penicillin Unknown Drug Allergy Active simvastatin Simvastatin Unknown Drug Allergy Act sonal omeprazole Omeprazole Unknown Drug Allergy Activ e ciprofloxacin Cipro Unknown Drug Allergy Act sonal Bactrim Unknown Drug Allergy Active REASON FOR [...] Problem Colon cancer screening (Z12.11) Active confirmed [id number] Problem Abnormal CT scan, colon (R93.3) Active confirmed 161649943 Problem Gastroesophageal reflux disease, unspecified whether esophagitis present (K21.9) Active confirmed [id number] PLAN OF TREATMENT Future Test Test Name Order Date UPPER GI ENDOSCOPY 04/21/2023 COLONOSCOPY 04/21/2023 Insurance Providers Payer Name Payer Address Payer Phone Subscriber Number Group Number Insured Name Patient Relationship to Insured Coverage Start Date Coverage End Date [facility] [address] [place] [address] [id number] EDDIE MERIDA Self - patient is the insured MEDICAL (GENERAL) HISTORY Medical History History ICD Code Hypothyroidism SVT's Anxiety Denies DE,DM,CVA,Lung disease,renal dise ase Bowel obstruction at [facility]-treated with a NG tube, no surgery--the patient reports that she was told that this was due to adhesions Acute onset of symptoms of a bdominal pain, vomiting, and diarrhea resulting in a hospitalization from 04/07-04/10/23. Her CT at [facility] described a pancolitis and possible appendicitis, although surgical consultation did not think she had appendicitis and she did not undergo surgery. She did well with a course of IV and subsequent oral antibiotics with resolution of her symptoms Surgical History Surgery Date(Month/Year) Lap. CCY-08/2022 Eye sugsheryl as a child Glaucoma surgery 2018
--- NOTE | 2025-01-09 08:32 | A.OFFPC_ITS ---
Vital Signs 01/09/25 08:33 Height 5 ft 2 in Weight 98 lb BMI 17.9 BP 120/70 Blood Pressure Location Lt brachial Position Sitting Pulse 85 Pulse Source Pulse Oximeter Temp 97.3 F Temp Source Temporal Artery Scan Pulse Oximetry (%) 96 Oxygen Delivery Method Room Air Intake Visit Reasons: Hypertension Intake Note: Patient is here to follow up on HTN. 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 per policy Accompanied by: Self / Same As Patient Allergies sulfamethoxazole [From Bactrim] Allergy (Severe, Verified 01/09/25 08:33) upset stomach trimethoprim [From Bactrim] Allergy (Severe, Verified 01/09/25 08:33) upset stomach ciprofloxacin [From Cipro] Allergy (Intermediate, Unverified 01/09/25 08:57) Nausea Penicillins [PENICILLINS] Allergy (Unknown, Verified 01/09/25 08:33) HIVES simvastatin [SIMVASTATIN] Allergy (Unknown, Verified 01/09/25 08:33) JOINT PAIN omeprazole Adverse Reaction (Intermediate, Verified 01/09/25 08:33) Headache Tobacco use date assessed: 01/09/25 Dental Screening Dental Screen Date: 01/09/25 Did you have a dental visit in the last 12 months?: No Did you have a dental problem in the last 6 months where you did not have access to dental care?: No Was dental information given to patient?: No (Dentures) HPI Hypertension HPI Details Female smoker with a history of hypothyroidism GERD hypercholesterolemia coming in for follow-up. Review of the notes was in the Urgent Center couple of x1 for knee pain after fall x-rays were negative this has resolved and patient came in for hematuria also and an ultrasound was requested. Patient is complaining of some lower abdominal pain for few days but this has resolved already and the hematuria resolved also patient is here for that problem. Meanwhile patient has been requested to get the blood work done but this was not done yet. History of Present Illness The patient is a 64-year-old female presenting with multiple chronic conditions and recent concerns of hematuria. She manages hypothyroidism with medication and adheres to pantoprazole for gastroesophageal reflux disease (GERD). Her last cholesterol level was borderline elevated at 131 mg/dL with planned lowering goals. The patient has generalized anxiety disorder and a history of small bowel obstruction and supraventricular tachycardia (SVT). A recent ultrasound nephrolith revealed a 1.9 cm cyst in the lower pole of the left kidney, deemed otherwise unremarkable. She was seen at an urgent care facility with hematuria potentially due to an underlying urinary tract infection (UTI). Furthermore, she had assessed left knee and ankle pain with imaging confirming no fractures, and she was managed with standard conservative measures, including prednisone. Health Maintenance - Last mammogram was conducted in May 09. - [facility] - Advised to reduce smoking to lower car diovascular risks. - Cholesterol management focusing on lev els below 130 mg/dL and triglycerides below 150 mg/dL. - Repeat blood work and urinalysis have been recommended. Social History - Tobacco Use: Continues to smoke, advis ed to reduce for cardiovascular risk reduction. Review of Systems - Genitourinary: Reports presence of blo od in urine. - Musculoskeletal: Reports left knee and ankle pain, previously evaluated. Physical Exam Results - Labs: Borderline elevated cholesterol at 131 mg/dL; normal blood count and electrolyte levels. - Tests: Ultrasound nephrolith revealed a 1.9 cm cyst in the left kidney. - Diagnostics: X-rays of knee and ankle showing no fractures. Plan Management of the patient's chronic conditions includes reinforcing treatment adherence for hypothyroidism and GERD, with lifestyle modifications highlighted for effective cholesterol and cardiovascular risk management. Hematuria warrants repeat urinalysis, while further consideration of her smoking habits was advised for cardiovascular benefits. The existing anxiety disorder management remains consistent without new interventions. Discussions regarding small bowel obstruction or SVT did not lead to updated plans during this visit. Patient was informed and verbally consented to the use of an ambient scribe for clinic note documentation during this visit. Discussion Notes I discussed with the patient her chronic conditions, emphasizing the importance of maintaining her current medication regimen for hypothyroidism and GERD. We reviewed the overall management plan for hypercholesterolemia and reinforced the need for lifestyle modifications, including smoking cessation, to reduce cardiovascular risks. The potential risks of leaving her cholesterol uncontrolled were touched upon. The patient's hematuria is to be evaluated further with urinalysis to rule out any underlying causes. Follow-up visits and coordination of care were discussed with respect to her multiple medical issues. Patient Instructions - Continue thyroid medication and pantop razole as prescribed. - Complete repeat blood work and urinaly sis as scheduled. - Work on reducing smoking habits to imp rove overall health. - Adhere to dietary modifications aimed at cholesterol and triglyceride control. - Monitor for any changes in symptoms an d report significant changes. - Consider smoking cessation programs fo r improved outcomes. [facility] Medical History (Updated 12/27/24 @ 15:28 by Ale Williamson PA-C) Generalized anxiety disorder Hypercholesterolemia Colonoscopy refused Cataract, left eye Anemia GERD (gastroesophageal reflux disease) Tobacco abuse Hypothyroid Vitamin B12 deficiency Surgical History Hx of cholecystectomy History of eye surgery Family History Father Hypertension CVD (cardiovascular disease) Bladder cancer Mother CVD (cardiovascular disease) Hypertension Lymphoma Maternal Grandmother Uterine cancer Breast cancer Maternal Aunt Ovarian cancer Sister CVD (cardiovascular disease) Social History Housing: Apartment Are you a primary disabilities caregiver to a significant other at home: No Do you presently have visiting nurse or other home services: No Alcohol intake: former Patient Tobacco Use Status: Current everyday Tobacco user Tobacco use type: Cigarette Cigarette Packs Per Day: 1 Cigarettes Per Day: 20.0 Years Smoked: less than half pack per day 12/2020, pack a day 12/2021 e-Cigarette/Vaping Use: Never Used Second Hand Smoke Exposure: Yes service: No Current occupational status: employed 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 1. Little interest or pleasure in doing things: not at all 2. Feeling down, depressed, or hopeless: not at all 3. Trouble falling or staying asleep, or sleeping too much: not at all 4. Feeling tired or having little energy: not at all 5. Poor appetite or overeating: not at all 6. Feeling bad about yourself - or that you are a failure or have let yourself or your family down: not at all 7. Trouble concentrating on things, such as reading the newspaper or watching television: not at all 8. Moving or speaking so slowly that other people could have noticed. Or the opposite - being so fidgety or restless that you have been moving around a lot more than usual: not at all 9. Thoughts that you would be better off or of hurting yourself in some way: not at all Total score: 0 Depression Screening Interpretation: Negative Depression Screening Done: Yes Source: Developed by Drs. Piero Reyes, Millie Alvaraod, Patrice Keita and colleagues, with an educational anila from [employer]. Thrive Questionnaire Date Thrive assessed: 01/09/25 I am a: Patient What is your living situation today?: I have a steady place to live Within the past 12 months, did the food you bought not last and you didn't have the money to get more?: Never true Within the past 12 months, did you worry whether your food would run out before you got money to buy more?: Never true Do you have trouble paying for medicines?: No Do you have trouble getting transportation to medical appointments?: No Do you have trouble paying your heating and electricity bill?: No Do you have trouble taking care of your child, family member or friend?: No Do you have trouble with day-to-day activities such as bathing, preparing meals, shopping, managing finances, etc.?: No Are you currently unemployed and looking for a job?: No Are you interested in more education?: No Please select the resources that you would like help with: None Currently or been in a relationship where the following occur: No concerns reported THRIVE Score: 0 AUDIT C Alcohol Use Questionnaire (AUDIT-C) 2. How many drinks containing alcohol do you have on a typical day when you are drinking?: 1 or 2 3. How often do you have six or more drinks on one occasion?: Never Total Score: 0 VAL-7 AMB Questionnaire VAL-7 Date VAL - 7 assessed: 01/09/25 Feeling nervous, anxious, or on edge: 0 = Not at all Not being able to stop or control worryin = Not at all Worrying too much about different things: 0 = Not at all Trouble relaxin = Not at all Being so restless that it is hard to sit still: 0 = Not at all Becoming easily annoyed or irritable: 0 = Not at all Feeling afraid as if something awful might happen: 0 = Not at all Total VAL-7 score (0-4 normal; 5-9 mild; 10-14 moderate; 15-21 severe): 0 Source: Developed by Drs. Piero Reyes, Millie Alvarado, Patrice Keita and colleagues, with an educational anila from [employer]. Physical exam (Primary Care) Vital Signs: Last Vital Signs Temp 97.3 F 01/09/25 08:33 Pulse 85 01/09/25 08:33 BP 120/70 01/09/25 08:33 Pulse Ox 96 01/09/25 08:33 Oxygen Delivery Method Room Air 01/09/25 08:33 BMI result Body Mass Index 17.9 Tobacco/Smoking Status: Tobacco use Status Tobacco use date assessed 01/09/25 01/09/25 08:39 Patient Tobacco Use Status Current everyday Tobacco 01/09/25 08:39 Tobacco use type Cigarette 01/09/25 08:39 e-Cigarette/Vaping Use Never Used 01/09/25 08:39 PHQ-9: PHQ-9 Score PHQ-9: Total score 0 01/09/25 08:43 Depression Screening Interpretation: Negative Thrive Assessment: Date of Thrive Assessment Date Thrive assessed 01/09/25 01/09/25 08:39 Currently or been in a relationship where the following occur: No concerns reported Const General: alert; No acute distress Eyes Conjunctivae: conjunctivae normal Resp Auscultation: clear to auscultation bilaterally Cardio Rate: regular rate Rhythm: regular rhythm GI Inspection: Yes normal to inspection Extrem General: Yes normal to inspection and No edema Results AMB Urinalysis, Automated 2 UA Leukoctes 3 Sarai/uL Last Edit by LATONYA Mortensen on 01/09/25 08:55 UA Nitrite Negative Last Edit by LATONYA Mortensen on 01/09/25 08:55 UA Urobilinogen 0 mg/dL Last Edit by LATONYA Mortensen on 01/09/25 08:55 UA Protein 0 mg/dL Last Edit by LATONYA Mortensen on 01/09/25 08:55 UA pH 6.0 Last Edit by LATONYA Mortensen on 01/09/25 08:55 UA Blood 1 Garry/uL Last Edit by LATONYA Mortensen on 01/09/25 08:55 UA Specific [place] 1.015 Last Edit by Sabi ZunigaLATONYA on 01/09/25 08: 55 UA Ketone Negative Last Edit by Joypao AlondraLATONYA looney on 01/09/25 08:55 UA Bilirubin 0 mg/dL Last Edit by Sabi Zuniga Pao on 01/09/25 08:55 UA Glucose 0 mg/dL Last Edit by Sabi CantuLATONYA looney on 01/09/25 08:55 Coding Level of Care Code Est Pt Level 4 (92722) Diagnoses Hematuria, unspecified type R31.9 Hematuria type: unspecified type Acquired hypothyroidism E03.9 Hypothyroidism type: acquired Gastroesophageal reflux disease without esophagitis K21.9 Esophagitis presence: without esophagitis Tobacco abuse Z72.0 Hypercholesterolemia E78.00 Generalized anxiety disorder F41.1 SVT (supraventricular tachycardia) I47.10 Assessment & Plan Assessment & Plan (1) Hematuria: Code(s): R31.9 - Hematuria, unspecified Category: Medical Qualifiers: Hematuria type: unspecified type Qualified Code(s): R31.9 - Hematuria, unspecified Plan: Patient is advised to have a repeat urine test (2) Hypothyroid: Code(s): E03.9 - Hypothyroidism, unspecified Category: Medical Qualifiers: Hypothyroidism type: acquired Qualified Code(s): E03.9 - Hypothyroidism, unspecified Plan: Continue with present thyroid medication and advised to get blood work done (3) GERD (gastroesophageal reflux disease): Code(s): K21.9 - Gastro-esophageal reflux disease without esophagitis Category: Medical Qualifiers: Esophagitis presence: without esophagitis Qualified Code(s): K21.9 - Gastro-esophageal reflux disease without esophagitis Plan: Avoid the foods that causes that usually spicy foods, tomato products, juices, coffee, soda and foods that your sensitive to. After eating do not lie down, allow 3-4 hours before in lie down. And keep the head of bed above 30 degrees to avoid the acid from going up. On pantoprazole (4) Tobacco abuse: Comment: 08/2022 stopped - continuing to smoke 02/2023 Code(s): Z72.0 - Tobacco use Category: Medical Plan: Patient is strongly advised to stop smoking (5) Hypercholesterolemia: Code(s): E78.00 - Pure hypercholesterolemia, unspecified Category: Medical Plan: Avoid fried foods, chicken skin, eggs, butter margarine, pastries and meat. Be it pork or beef they have a lot of cholesterol LDL goal of less than 130 and triglyceride of less than 150 (6) Generalized anxiety disorder: Comment: Declined referral for counseling Code(s): F41.1 - Generalized anxiety disorder Category: Medical Plan: Continue with present medication (7) SVT (supraventricular tachycardia): Code(s): I47.10 - Supraventricular tachycardia, unspecified Category: Medical Plan: continue with metoprolol Plan History of Present Illness The patient is a 64-year-old female presenting with multiple chronic conditions and recent concerns of hematuria. She manages hypothyroidism with medication and adheres to pantoprazole for gastroesophageal reflux disease (GERD). Her last cholesterol level was borderline elevated at 131 mg/dL with planned lowering goals. The patient has generalized anxiety disorder and a history of small bowel obstruction and supraventricular tachycardia (SVT). A recent ultrasound nephrolith revealed a 1.9 cm cyst in the lower pole of the left kidney, deemed otherwise unremarkable. She was seen at an urgent care facility with hematuria potentially due to an underlying urinary tract infection (UTI). Furthermore, she had assessed left knee and ankle pain with imaging confirming no fractures, and she was managed with standard conservative measures, including prednisone. Health Maintenance - Last mammogram was conducted in May 2024. - Colonoscopy has been declined by the patient. - Advised to reduce smoking to lower cardiovascular risks. - Cholesterol management focusing on levels below 130 mg/dL and triglycerides below 150 mg/dL. - Repeat blood work and urinalysis have been recommended. Social History - Tobacco Use: Continues to smoke, advised to reduce for cardiovascular risk reduction. Review of Systems - Genitourinary: Reports presence of blood in urine. - Musculoskeletal: Reports left knee and ankle pain, previously evaluated. Physical Exam Results - Labs: Borderline elevated cholesterol at 131 mg/dL; normal blood count and electrolyte levels. - Tests: Ultrasound nephrolith revealed a 1.9 cm cyst in the left kidney. - Diagnostics: X-rays of knee and ankle showing no fractures. Plan Management of the patient's chronic conditions includes reinforcing treatment adherence for hypothyroidism and GERD, with lifestyle modifications highlighted for effective cholesterol and cardiovascular risk management. Hematuria warrants repeat urinalysis, while further consideration of her smoking habits was advised for cardiovascular benefits. The existing anxiety disorder management remains co nsistent without new interventions. Discussions regarding small bowel obstruction or SVT did not lead to updated plans during this visit. Patient was informed and verbally consented to the use of an ambient scribe for clinic note documentation during this visit. Discussion Notes I discussed with the patient her chronic conditions, emphasizing the importance of maintaining her current medication regimen for hypothyroidism and GERD. We reviewed the overall management plan for hypercholesterolemia and reinforced the need for lifestyle modifications, including smoking cessation, to reduce card iovascular risks. The potential risks of leaving her cholesterol uncontrolled were touched upon. The patient's hematuria is to be evaluated further with urinalysis to rule out any underlying causes. Follow-up visits and coordination of care were discussed with respect to her multiple medical issues. Patient Instructions - Continue thyroid medication prescribed. - Complete repeat blood work and urinalysis as scheduled. - Work on reducing smoking habits to improve overall health. - Adhere to dietary modifications aimed at cholesterol and triglyceride control. - Monitor for any changes in symptoms and report significant changes. - Consider smoking cessation programs for improved outcomes. Orders: Orders UA CC w/rflx Micro + Cult Today R30.0 - Dysuria AMB Urinalysis Automated Today R31.9 - Hematuria, unspecified, Z13.9 - Encounter for screening, unspecified Medications: New nitrofurantoin monohyd/m-cryst 100 mg (Macrobid) must administer with a meal/food 100 mg PO Q12H 7 days 14 caps 0RF R31.9 - Hematuria, unspecified Discontinued pantoprazole Discontinued Reason: Patient Completed Course 40 mg PO DAILY 30 days 30 tabs 11RF K21.9 - Gastro-esophageal reflux disease without esophagitis
[2025-01-09 08:33] VITALS: BP 120/70; PULSE 85; TEMP 36.3; O2SAT 96; BMI 17.9
== END 2025-01-09 11:12 | disposition home or self-care (01) ==
PROVIDERS: PCP Internal Medicine; Visit Provider Internal Medicine
DX: R31.9 Hematuria, unspecified (principal); I47.10 Supraventricular tachycardia, unspecified; E03.9 Hypothyroidism, unspecified; K21.9 Gastro-esophageal reflux disease without esophagitis; Z72.0 Tobacco use; E78.00 Pure hypercholesterolemia, unspecified; F41.1 Generalized anxiety disorder

== ENCOUNTER 2025-01-09 08:10 | Outpatient (REF) | payer OTHER, SELFPAY ==
[2025-01-09 12:13] LABS: Appearance Urine Clear; Color Urine Yellow; Glucose Urine UA Negative (Negative); Leukocyte Esterase Urine Moderate (2+) (Negative); Nitrite Urine Negative (Negative); UMIC TRIGGER UACC YES; Urine Blood Trace (Negative); Urine Ketones Negative (Negative); Urine Protein Negative (Neg-Trace)
[2025-01-09 12:25] LABS: Bacteria Urine 1+ (None Seen); Calcium Oxalate Crystals Urine Present; Hyaline Casts Urine 0-2 /LPF (0-2); UACC Culture Trigger YES
== END 2025-01-09 08:11 | disposition home or self-care (01) ==
LOC: HO.LNP 08:10
PROVIDERS: PCP Internal Medicine; Visit Provider Internal Medicine
DX: R31.9 Hematuria, unspecified (principal); R30.0 Dysuria; E03.9 Hypothyroidism, unspecified; K21.9 Gastro-esophageal reflux disease without esophagitis; E78.00 Pure hypercholesterolemia, unspecified; F41.1 Generalized anxiety disorder; I47.10 Supraventricular tachycardia, unspecified; Z79.899 Other long term (current) drug therapy; Z72.0 Tobacco use
CPT/HCPCS: 81001; 81003; 87086; 99212

== ENCOUNTER 2025-01-11 06:01 | Outpatient (REF) | payer OTHER, SELFPAY ==
--- OUTSIDE RECORDS SUMMARY | 2025-01-11 06:03 | XMS_ITS ---
Author Organization [facility] Address [address] [place] [id number] Care Team Providers Care Respiratory Therapy Aide Name Role Phone Dominik Alas MD Primary Care Provider Piero Hayward [facility] [phone] REASON FOR VISIT colon screening Encounters Encounter Location Date Provider Diagnosis [facility] [address] [place] [id number] 09/17/2023 Piero Cedeno Plan Of Treatment No Information Progress Notes * KORY MERIDAADOB:1960 ( 64 yo F)Acc No.[id number]:09/17/2023 Progress Notes Patient:?EDDIE MERIDA Provider:?Piero Cedeno MD :1960???Age:63 Y???Sex:Female D ate:09/17/2023 Address:[address] [place] [address] [address] [id number] Pcp:Dominik Alas MD Subjective: * Chief Complaints: * ???1. Colon screening. * Medical History:? Objective: * Vitals:? Assessment: Plan: * Treatment: * * The named appointment provid er may or may not be the originator of this progress note, and it is not deemed complete until electronically signed by the appointment provider. Sign off status: Pending * Provider:?Piero Cedeno MD Date:? 023 Generated for Zenaida obregon/Alessia/eTransmitting on:?01/11/2025 06:03 AM EST
--- OUTSIDE RECORDS SUMMARY | 2025-01-11 06:03 | XMS_ITS ---
Author Organization [facility] Address [address] [place] [phone] Care Team Providers Care Carbonation Tester Name Role Phone Dominik Alas MD Primary Care Provider Piero Hayward [phone] REASON FOR VISIT screening, gerd, abnormal ct scan Encounters Encounter Location Date Provider Diagnosis [facility] Outpatient [address] [place] [phone] 12/13/2023 Piero Cedeno Plan Of Treatment No Information Progress Notes * KORY MERIDAADOB:1960 ( 64 yo F)Acc No.[id number]:12/13/2023 EGD&COL/MAC Patient:?EDDIE MERIDA Provider:?Piero Cedeno MD :1960???Age:63 Y???Sex:Female D ate:12/13/2023 Address:[address] [place] [address] [address] , [id number] Pcp:Dominik Alas MD Subjective: * Chief Complaints: * ???1. Screening, gerd, abnor mal ct scan. * Medical History:? Objective: * Vitals:? Assessment: Plan: * Treatment: * * The named appointment provid er may or may not be the originator of this progress note, and it is not deemed complete until electronically signed by the appointment provider. Sign off status: Pending * Provider:?Piero Cedeno MD Date:? 024 Generated for Zenaida obregon/Alessia/eTransmitting on:?01/11/2025 06:03 AM EST
--- OUTSIDE RECORDS SUMMARY | 2025-01-11 06:03 | XMS_ITS | Patient Health Record ---
Author Organization [facility] Address [address] [place] [address] Care Team Providers Care Sofa Back Upholsterer Name Role Phone Po Dominik GORE Primary Care Provider Piero Hayward [phone] Allergies Allergen (clinical drug ingredient) Drug/Non Drug Allergy documented on EMR Reaction Allergy Type Onset Date Status Penicillin Unknown Drug Allergy Active simvastatin Simvastatin Unknown Drug Allergy Act sonal omeprazole Omeprazole Unknown Drug Allergy Activ e ciprofloxacin Cipro Unknown Drug Allergy Act sonal Bactrim Unknown Drug Allergy Active Reason For Referral No Information Medications Medication SIG (Take, Route, Frequency, Duration) Notes [...] Once a day for 30 days Active Immunizations Vaccine Route Administration Date Status Comme nts Influenza Unknown 08/25/2022 Administered Social History Tobacco Use: Social History Observation Description Date Details (start date - stop date) Current Smoker NA - NA Tobacco Use/Smoking Question Answer Notes Patient is a current smoker Alcohol Screen Question Answer Notes Did you have a drink containing alcohol in the p ast year? No Points 0 Interpretation Negative Section Notes: She smokes one pack per day, she does not use any alcohol Problems Problem Type SNOMED Code ICD Code Onset Dates Problem Status W/U Status Risk Notes Problem 201511783 Colon cancer screening (Z12.11) Active confirmed Problem 897644839 Abnormal CT scan , colon (R93.3) Active confirmed Problem 542176059 Gastroesophageal reflux disease, unspecified whether esophagitis present (K21.9) Active confirmed Plan Of Treatment Future Test Test Name Order Date UPPER GI ENDOSCOPY 04/21/2023 COLONOSCOPY 04/21/2023 Insurance Providers Payer Name Payer Address Payer Phone Subscriber Number Group Number Insured Name Patient Relationship to Insured Coverage Start Date Coverage End Date [facility] [address] [place] [address] [id number] EDDIE MERIDA Self - patient is the insured Medical (General) History Medical History History ICD Code Hypothyroidism SVT's Anxiety Denies [place],DM,CVA,Lung disease,renal dise ase Bowel obstruction at [facility]-treated with a NG tube, no surgery--the patient reports that she was told that this was due to adhesions Acute onset of symptoms of a bdominal pain, vomiting, and diarrhea resulting in a hospitalization from 04/07-04/10/23. Her CT at [facility] described a pancolitis and possible appendicitis, although surgical consultation did not think she had appendicitis and she did not undergo surgery. She did well with a course of IV and subsequent oral antibiotics with resolution of her symptoms Surgical History Surgery Date(Month/Year) Lap. CCY-08/2022 Eye sugeries as a child Glaucoma surgery 2018
[2025-01-11 10:41] LABS: MANUAL DIFF FLAG NO
[2025-01-11 10:49] LABS: Basophils Absolute Auto 0.1 X10*3/uL (0.0-0.2); Basophils Percent Auto 1.3 % (0-2); Eosinophils Absolute Auto 0.4 X10*3/uL (0.0-0.4); Eosinophils Percent Auto 4.6 % (0-4); Hematocrit 43.5 % (37.0-47.0); Hemoglobin 14.4 g/dl (12.0-16.0); Imm Gran Abs Auto 0.03 X10*3/uL (0.00-0.03); Imm Gran Pct Auto 0.4 % (0.0-0.4); Lymphocytes Absolute Auto 2.9 X10*3/uL (1.2-4.9); Lymphocytes Percent Auto 34.4 % (20-40); Mean Corpuscular HGB Conc 33.1 g/dl (31.0-35.0); Mean Corpuscular Hemoglobin 32.5 pg (27.0-33.0); Mean Corpuscular Volume 98.2 fL (80.0-98.0); Mean Platelet Volume 10.9 fL (9.4-12.3); Monocytes Absolute Auto 0.5 X10*3/uL (0.1-1.2); Monocytes Percent Auto 5.9 % (2-11); Neutrophils Absolute Auto 4.6 x10*3/uL (2.0-8.3); Neutrophils Percent Auto 53.4 % (45-73); Platelet Count 270 X10*3/uL (160-400); Red Blood Count 4.43 X10*6/uL (4.20-5.50); Red Cell Distribution Width 12.3 % (11.0-16.0); White Blood Count 8.5 X10*3/uL (4.8-10.8)
[2025-01-11 11:14] LABS: Alanine Aminotransferase 25 U/L (0-31); Albumin Level 4.1 g/dL (3.5-5.0); Alkaline Phosphatase 69 U/L (39-117); Anion Gap 12 (12-20); Aspartate Amino Transferase 23 U/L (5-31); Bilirubin Total 0.7 mg/dL (0.0-1.0); Blood Urea Nitrogen 12 mg/dL (9-16); Calcium 9.2 mg/dL (8.4-10.2); Carbon Dioxide 25 mmol/L (22-29); Chloride 109 mmol/L (96-108); Cholesterol 225 mg/dL (<200); Estimated Glomerular Filt Rate > 60; Glucose Random 92 mg/dL (60-115); HDL Cholesterol 76 mg/dL (>40); LDL Cholesterol Calculated 130 mg/dL (<100); Magnesium 1.8 mg/dL (1.6-2.6); Potassium 3.8 mmol/L (3.3-5.1); Sodium 142 mmol/L (135-145); Total Protein 6.9 g/dL (6.5-8.0); Triglycerides 96 mg/dL (<150)
[2025-01-11 11:34] LABS: Thyroid Stimulating Hormone 2.55 uIU/mL (0.32-4.0); Vitamin D 25-OH Total 141.7 ng/mL (>30)
[2025-01-11 11:39] LABS: Folate > 20.0 ng/mL (> or = 4.0); Vitamin B12 737 pg/mL (200-900)
== END 2025-01-11 06:02 | disposition home or self-care (01) ==
LOC: HO.HMGCLDS 06:01
PROVIDERS: PCP Internal Medicine; Visit Provider Internal Medicine
DX: I47.10 Supraventricular tachycardia, unspecified (principal); E78.00 Pure hypercholesterolemia, unspecified
CPT/HCPCS: 36415; 80053; 80061; 82306; 82607; 82746; 83735; 84443; 85025

== ENCOUNTER 2025-03-20 14:24 | Outpatient (AMB) | payer OTHER, SELFPAY ==
--- NOTE | 2025-03-20 14:30 | A.OFFVIS_ITS ---
Intake Visit Reasons: Microscopic Hematuria Intake Note: New patient presents today for initial visit for microscopic hematuria Urology Medication: Blood Thinner: Antibiotic Allergies: Allergies sulfamethoxazole [From Bactrim] Allergy (Severe, Verified 03/20/25 15:19) upset stomach trimethoprim [From Bactrim] Allergy (Severe, Verified 03/20/25 15:19) upset stomach ciprofloxacin [From Cipro] Allergy (Intermediate, Verified 03/20/25 15:19) Nausea Penicillins [PENICILLINS] Allergy (Unknown, Verified 03/20/25 15:19) HIVES simvastatin [SIMVASTATIN] Allergy (Unknown, Verified 03/20/25 15:19) JOINT PAIN omeprazole Adverse Reaction (Intermediate, Verified 03/20/25 15:19) Headache Medication List - Last Reconciled 03/20/25 by KAREN Abel cholecalciferol (vitamin D3) 50 mcg PO DAILY cyanocobalamin (vitamin B-12) 1,000 mcg PO DAILY ferrous sulfate (Feosol) 325 mg PO DAILY folic acid 1 mg PO DAILY 90 days levothyroxine 88 mcg PO DAILY 90 days lorazepam (Ativan) 0.5 mg PO BID PRN metoprolol succinate ER 12.5 mg (1/2 x 25 mg) PO DAILY nitrofurantoin monohyd/m-cryst 100 mg (Macrobid) 100 mg PO Q12H 7 days HPI Comments Details: Cindi is a very pleasant 64-year-old female patient of Dr. Alas. She has a past medical history of anxiety, hypercholesteremia, cataract of the left eye, anemia, GERD, nicotine dependence, hypothyroidism, and vitamin B12 deficiency. She presents to the office today as a new patient for gross hematuria. In discussion with the patient today she reports a longstanding history of nicotine dependence since the age of [age] years old. She smokes approximately 1 pack of cigarettes per day. She reports episode of gross hematuria in January however reports this to be a solitary event and has since subsided. In office urinalysis results reviewed with the patient today. Microscopic hematuria noted. We discussed potential causes of gross hematuria as well as microscopic hematuria. We discussed reasons for blood in the urine may include but are not limited to kidney stones, cancer in the urinary tract, kidney stone disease or inflammatory conditions of the urinary tract. I have discussed workup to include cystoscopy evaluation. She otherwise denies urinary urgency, urinary frequency, incontinence, nocturia, dysuria, foul smelling urine, changes to urinary stream, flank pain, fever, and or chills. She is happy with her current voiding parameters. [facility] Medical History Generalized anxiety disorder Hypercholesterolemia Colonoscopy refused Cataract, left eye Anemia GERD (gastroesophageal reflux disease) Tobacco abuse Hypothyroid Vitamin B12 deficiency Surgical History Hx of cholecystectomy History of eye surgery Family History Father Hypertension CVD (cardiovascular disease) Bladder cancer Mother CVD (cardiovascular disease) Hypertension Lymphoma Maternal Grandmother Uterine cancer Breast cancer Maternal Aunt Ovarian cancer Sister CVD (cardiovascular disease) Social History Housing: Apartment Are you a primary rn progressive care to a significant other at home: No Do you presently have visiting nurse or other home services: No Alcohol intake: former Patient Tobacco Use Status: Current everyday Tobacco user Tobacco use type: Cigarette Cigarette Packs Per Day: 1 Cigarettes Per Day: 20.0 Years Smoked: less than half pack per day 12/2020, pack a day 12/2021 e-Cigarette/Vaping Use: Never Used Second Hand Smoke Exposure: Yes service: No Current occupational status: employed 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 /[employer] Cognitive needs: No Hearing needs: No Vision needs: Yes (Glasses) Review of Systems Const All systems reviewed & are unremarkable except as noted in HPI and below Physical Exam Const General: cooperative, healthy appearing, comfortable, no acute distress, well developed, alert and awake Orientation/consciousness: patient oriented x3 Limitations: no limitations HEENT Head: Yes normal to inspection, Yes normocephalic and Yes atraumatic Ears: hearing grossly normal bilaterally Eyes General: appearance normal, both eyes and all related structures Neck Neck: Yes normal visual inspection and Yes trachea midline Chest Chest palpation & inspection: normal inspection of the chest Resp Effort & Inspection: normal respiratory effort and able to speak in complete sentences Cardio Rate: regular rate GI Inspection: Yes normal to inspection General: Yes no CVA tenderness Back/Spine/Pelvis Back: no CVA tenderness Skin General skin exam: no rashes or lesions noted Neuro General: patient oriented x3 Extrem General: Yes normal to inspection Psych Appearance: grossly normal and well kempt Mental Status: mental status grossly normal Speech and movement: Normal speech and movement present and Clear speech present Affect: normal affect Attitude: cooperative Thought process: Normal thought process present Thought content: Normal thought content present Insight: Fair insight present (Psych) Judgement: Fair judgement present (Psych) Assessment & Plan Assessment & Plan (1) Hematuria: Code(s): R31.9 - Hematuria, unspecified Category: Medical Qualifiers: Hematuria type: unspecified type Qualified Code(s): R31.9 - Hematuria, unspecified Plan In office urinalysis results with the patient today; as noted above; will send for urine cytology. Discussed potential causes of gross and microscopic hematuria. Will obtain CT urogram for further assessment evaluation. BUN and creatinine ordered for imaging. We discussed importance of limiting/quitting nicotine dependence for overall health and well-being. She currently denies any bothersome urinary issues. She reports be happy current voiding parameters Follow-up next available in office cystoscopy with imaging to be completed prior; or sooner with any issues, concerns, and or questions. Orders: Orders Urine Cytology Today R31.9 - Hematuria, unspecified Creatinine Today R39.15 - Urgency of urination CT urogram Today R31.0 - Gross hematuria Blood Urea Nitrogen Today R39.15 - Urgency of urination Patient Instructions: The patient had an opportunity to ask questions regarding the treatment plan. All questions were answered. Physical exam, labs, and imaging were discussed and reviewed in detail. As well as risks, benefits, and discussion of treatment choices. No major barriers to understanding were identified. The patient expressed understanding and agreement with the above treatment plan. The patient was made aware they should contact our office by phone for worsening of their current condition, the appearance of new symptoms, or with any questions or concerns. Compliance is encouraged with any medications and follow up testing that is ordered. It is a privilege to be allowed the opportunity to participate in? your urological care.? Again, if you have any questions or concerns If you have any questions or concerns please do not hesitate to contact me. The office is [phone]. This note is constructed using voice recognition software. While every effort has been made to ensure accuracy meal temperer errors may have been included. Yours sincerely, KAREN Abel Coding Level of Care Code New Pt Level 3 (76931) Diagnoses Hematuria, unspecified type R31.9 Hematuria type: unspecified type
--- OUTSIDE RECORDS SUMMARY | 2025-03-20 15:34 | XMS_ITS ---
Author Organization [facility] Address [address] [place] [id number] Care Team Providers Care Remote Sensing Specialist Name Role Phone Dominik Alas MD Primary Care Provider Piero Hayward [phone] REASON FOR VISIT screening, gerd, abnormal ct scan Encounters Encounter Location Date Provider Diagnosis [facility] Outpatient [address] [place] [id number] 12/13/2023 Piero Cedeno Plan Of Treatment No Information Progress Notes * MAGNOLIA KORYADOB:1960 ( 64 yo F)Acc No.[id number]:12/13/2023 EGD and COL/MAC Patient:?EDDIE MERIDA Provider:?Piero Cedeno MD :1960???Age:63 Y???Sex:Female D ate:12/13/2023 Address:[address] [place] [address] [address] , [id number] Pcp:Dominik Alas MD Subjective: * Chief Complaints: [...] Provider:?Piero Cedeno MD Date:? 024 Generated for Printi ng/Faxing/eTransmitting on:?03/20/2025 03:34 PM EDT
--- OUTSIDE RECORDS SUMMARY | 2025-03-20 15:34 | XMS_ITS | Patient Health Record ---
Author Organization [facility] Address [address] [place] [address] Care Team Providers Care Clinical Research Analyst Name Role Phone Dominik Alas MD Primary Care Provider Piero Hayward [phone] Allergies Allergen (clinical drug ingredient) Drug/Non Drug Allergy documented on EMR Reaction Allergy Type Onset Date Status Penicillin Unknown Drug Allergy Active simvastatin Simvastatin Unknown Drug Allergy Act sonal omeprazole Omeprazole Unknown Drug Allergy Activ e ciprofloxacin Cipro Unknown Drug Allergy Act sonal sulfamethoxazole / trimethoprim Bactrim Unknown Drug Allergy Active Reason For [...] Problem Status W/U Status Risk Notes Problem 201538199 Colon cancer screening (Z12.11) Active confirmed Problem 692690563 Abnormal CT scan , colon (R93.3) Active confirmed Problem [id number] Gastroesophageal reflux disease, unspecified whether esophagitis present (K21.9) Active confirmed Plan Of Treatment Future Test Test Name Order Date UPPER GI ENDOSCOPY 04/21/2023 COLONOSCOPY 04/21/2023 Insurance Providers Payer Name Payer Address Payer Phone Subscriber Number Group Number Insured Name Patient Relationship to Insured Coverage Start Date Coverage End Date [facility] [address] [place] [id number] EDDIE MERIDA Self - patient is the insured Medical (General) History Medical History History ICD Code Hypothyroidism SVT's Anxiety Denies PR,DM,CVA,Lung disease,renal dise ase Bowel obstruction at [facility]-treated with a NG tube, no surgery--the patient reports that she was told that this was due to adhesions Acute onset of symptoms of a bdominal pain, vomiting, and diarrhea resulting in a hospitalization from 04/07-04/10/23. Her CT at [facility] described a pancolitis and possible appendicitis, although surgical consultation did not think she had appendicitis and she did not undergo surgery. She did well with a course of IV and subsequent oral antibiotics with resolution of her symptoms Surgical History Surgery Date(Month/Year) Lap. CCY-08/2022 Eye sugeries as a child Glaucoma surgery 2018
--- OUTSIDE RECORDS SUMMARY | 2025-03-20 15:34 | XMS_ITS ---
Author Organization [facility] Address [address] [place] [address] Care Team Providers Care Supervisor Sanding Name Role Phone Dominik Alas MD Primary Care Provider Piero Hayward [phone] REASON FOR VISIT cancelling egd /colonoscopy Encounters Encounter Location Date Provider Diagnosis [facility] [address] [place] [address] 12/07/2023 Piero Cedeno Plan Of Treatment No Information Progress Notes * KORY MERIDAADOB:1960 ( 63 yo F)Acc No.[id number]:12/07/2023 Patient:?MAGNOLIA EDDIE :1960???Age:63 Y???Sex:Female Address:[address] [place] [address] [address] , [place], [id number] * true * Date:? Generated for Zenaida obregon/Alessia/eTransmitting on:?03/20/2025 03:34 PM EDT
== END 2025-03-20 15:19 | disposition home or self-care (01) ==
LOC: HO.HUSH 14:25
PROVIDERS: PCP Internal Medicine; Visit Provider Nurse Practitioner Family
DX: Z13.9 Encounter for screening, unspecified (principal); R31.9 Hematuria, unspecified
CPT/HCPCS: 99203

== ENCOUNTER 2025-03-20 14:24 | Outpatient (REF) | payer OTHER, SELFPAY ==
[2025-03-20 16:45] LABS: Urine Cytology See Pathology rpt
== END 2025-03-20 14:25 | disposition home or self-care (01) ==
LOC: HO.LNP 14:24
PROVIDERS: PCP Internal Medicine; Visit Provider Nurse Practitioner Family
DX: R31.9 Hematuria, unspecified (principal); R39.15 Urgency of urination
CPT/HCPCS: 81003; 88112; 99202

== ENCOUNTER 2025-03-30 14:19 | Outpatient (REF) | payer OTHER, SELFPAY ==
--- OUTSIDE RECORDS SUMMARY | 2025-03-30 14:21 | XMS_ITS ---
Author Organization [facility] Address [address] [place] [address] Care Team Providers Care Stucco Applicator Name Role Phone Dominik Alas MD Primary Care Provider Piero Hayward [phone] REASON FOR VISIT cancelling egd /colonoscopy Encounters Encounter Location Date Provider Diagnosis [facility] [address] [place] [address] 12/07/2023 Piero Cedeno Plan Of Treatment No Information Progress Notes * KORY MERIDAADOB:1960 ( 63 yo F)Acc No.[id number]:12/07/2023 Patient:?MAGNOLIA EDDIE :1960???Age:63 Y???Sex:Female Address:[address] [place] [address] [address] , [place], [id number] * true * Date:? Generated for Zenaida obregon/Alessia/eTransmitting on:?03/30/2025 02:21 PM EDT
[2025-03-30 16:54] LABS: Blood Urea Nitrogen 12 mg/dL (9-16); Estimated Glomerular Filt Rate > 60
== END 2025-03-30 14:20 | disposition home or self-care (01) ==
LOC: HO.HMGCLDS 14:19
PROVIDERS: PCP Internal Medicine; Visit Provider Nurse Practitioner Family
DX: R39.15 Urgency of urination (principal)
CPT/HCPCS: 36415; 82565; 84520

== ENCOUNTER 2025-04-16 09:50 | Outpatient (AMB) | payer OTHER, SELFPAY ==
--- NOTE | 2025-04-16 09:52 | MHC.PC.OV ---
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 Required: No Accompanied by: Self / Same As Patient Allergies sulfamethoxazole [From Bactrim] Allergy (Severe, Verified 04/16/25 09:53) upset stomach trimethoprim [From Bactrim] Allergy (Severe, Verified 04/16/25 09:53) upset stomach ciprofloxacin [From Cipro] Allergy (Intermediate, Verified 04/16/25 09:53) Nausea Penicillins [PENICILLINS] Allergy (Unknown, Verified 04/16/25 09:53) HIVES simvastatin [SIMVASTATIN] Allergy (Unknown, Verified 04/16/25 09:53) JOINT PAIN omeprazole Adverse Reaction (Intermediate, Verified 04/16/25 09:53) Headache Tobacco use date assessed: 04/16/25 Dental Screening Dental Screen Date: 04/16/25 Did you have a dental visit in the last 12 months?: No Did you have a dental problem in the last 6 months where you did not have access to dental care?: No Was dental information given to patient?: Patient declined [facility] Medical History Generalized anxiety disorder Hypercholesterolemia Colonoscopy refused Cataract, left eye Anemia GERD (gastroesophageal reflux disease) Tobacco abuse Hypothyroid Vitamin B12 deficiency Surgical History Hx of cholecystectomy History of eye surgery Family History Father Hypertension CVD (cardiovascular disease) Bladder cancer Mother CVD (cardiovascular disease) Hypertension Lymphoma Maternal Grandmother Uterine cancer Breast cancer Maternal Aunt Ovarian cancer Sister CVD (cardiovascular disease) Social History Housing: Apartment Are you a primary rn urgent care to a significant other at home: No Do you presently have visiting nurse or other home services: No Alcohol intake: former Patient Tobacco Use Status: Current everyday Tobacco user Tobacco use type: Cigarette Cigarette Packs Per Day: 1 Cigarettes Per Day: 20.0 Years Smoked: less than half pack per day 12/2020, pack a day 12/2021 e-Cigarette/Vaping Use: Never Used Second Hand Smoke Exposure: Yes service: No Current occupational status: employed 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 1. Little interest or pleasure in doing things: not at all 2. Feeling down, depressed, or hopeless: not at all 3. Trouble falling or staying asleep, or sleeping too much: several days 4. Feeling tired or having little energy: several days 5. Poor appetite or overeating: not at all 6. Feeling bad about yourself - or that you are a failure or have let yourself or your family down: not at all 7. Trouble concentrating on things, such as reading the newspaper or watching television: not at all 8. Moving or speaking so slowly that other people could have noticed. Or the opposite - being so fidgety or restless that you have been moving around a lot more than usual: not at all 9. Thoughts that you would be better off or of hurting yourself in some way: not at all Total score: 2 Source: Developed by Drs. Piero Reyes, Millie Alvarado, Patrice Keita and colleagues, with an educational anila from [employer]. Thrive Questionnaire Date Thrive assessed: 04/16/25 I am a: Patient What is your living situation today?: I have a steady place to live Within the past 12 months, did the food you bought not last and you didn't have the money to get more?: Never true Within the past 12 months, did you worry whether your food would run out before you got money to buy more?: Never true Do you have trouble paying for medicines?: No Do you have trouble getting transportation to medical appointments?: No Do you have trouble paying your heating and electricity bill?: No Do you have trouble taking care of your child, family member or friend?: No Do you have trouble with day-to-day activities such as bathing, preparing meals, shopping, managing finances, etc.?: No Are you currently unemployed and looking for a job?: No Are you interested in more education?: No Please select the resources that you would like help with: None Currently or been in a relationship where the following occur: No concerns reported THRIVE Score: 0 AUDIT C Alcohol Use Questionnaire (AUDIT-C) 1. How often do you have a drink containing alcohol?: Never 3. How often do you have six or more drinks on one occasion?: Never Total Score: 0 VAL-7 AMB Questionnaire VAL-7 Date VAL - 7 assessed: 01/09/25 Feeling nervous, anxious, or on edge: 2 = More than half the days Not being able to stop or control worryin = More than half the days Worrying too much about different things: 2 = More than half the days Trouble relaxin = Several days Being so restless that it is hard to sit still: 0 = Not at all Becoming easily annoyed or irritable: 0 = Not at all Feeling afraid as if something awful might happen: 1 = Several days Total VLA-7 score (0-4 normal; 5-9 mild; 10-14 moderate; 15-21 severe): 8 Source: Developed by Drs. Piero Reyes, Millie Alvarado, Patrice Keita and colleagues, with an educational anila from [employer]. Physical exam (Primary Care) Vital Signs: Last Vital Signs Temp 97.0 F 04/16/25 09:53 Pulse 86 04/16/25 09:53 BP 110/72 04/16/25 09:53 Pulse Ox 96 04/16/25 09:53 Oxygen Delivery Method Room Air 04/16/25 09:53 BMI result Body Mass Index 17.3 Tobacco/Smoking Status: Tobacco use Status Tobacco use date assessed 04/16/25 04/16/25 09:56 Patient Tobacco Use Status Current everyday Tobacco 04/16/25 09:56 Tobacco use type Cigarette 04/16/25 09:56 e-Cigarette/Vaping Use Never Used 04/16/25 09:56 PHQ-9: PHQ-9 Score PHQ-9: Total score 2 04/16/25 10:17 Thrive Assessment: Date of Thrive Assessment Date Thrive assessed 04/16/25 04/16/25 09:56 Currently or been in a relationship where the following occur: No concerns reported Const General: alert; No acute distress Eyes Conjunctivae: conjunctivae normal Resp Auscultation: clear to auscultation bilaterally Cardio Rate: regular rate Rhythm: regular rhythm GI Inspection: Yes normal to inspection Extrem General: Yes normal to inspection and No edema Immunizations Tenivac (PF) 5 Lf unit-2 Lf unit/0.5 mL intramuscular suspension Performing Provider: Dominik Alas MD Performing Location: [facility] [place] [facility] Administered by: RYNE Vargas on 04/16/25 10:17 Dose Route Admin Location Dispensed Lot Number Expiration Date NDC Serger 0.5 mL IM Left Deltoid 0.5 mL [id number] 01/06/27 [id number] [employer]/ VIS Given Date VIS Provided VIS Publication Date 04/16/25 Single Vaccine 21 Eligibility Eligibility Date Funding Source [facility] Eligible 04/16/25 Private Coding Level of Care Code Est Pt Level 4 (47345) Complex EM visit Add On G2211 Diagnoses Hematuria, unspecified type R31.9 Hematuria type: unspecified type Tobacco abuse Z72.0 Acquired hypothyroidism E03.9 Hypothyroidism type: acquired Gastroesophageal reflux disease without esophagitis K21.9 Esophagitis presence: without esophagitis Hypercholesterolemia E78.00 Generalized anxiety disorder F41.1 Assessment & Plan Assessment & Plan (1) Hematuria: Code(s): R31.9 - Hematuria, unspecified Category: Medical Qualifiers: Hematuria type: unspecified type Qualified Code(s): R31.9 - Hematuria, unspecified Plan: Patient is being followed up by Urology and has an upcoming CT scan (2) Tobacco abuse: Comment: 08/2022 stopped - continuing to smoke 02/2023 Code(s): Z72.0 - Tobacco use Category: Medical Plan: Patient is strongly advised to stop smoking! (3) Hypothyroid: Code(s): E03.9 - Hypothyroidism, unspecified Category: Medical Qualifiers: Hypothyroidism type: acquired Qualified Code(s): E03.9 - Hypothyroidism, unspecified Plan: Continue with present thyroid medication at 88 mcg once a day (4) GERD (gastroesophageal reflux disease): Code(s): K21.9 - Gastro-esophageal reflux disease without esophagitis Category: Medical Qualifiers: Esophagitis presence: without esophagitis Qualified Code(s): K21.9 - Gastro-esophageal reflux disease without esophagitis Plan: Avoid the foods that causes that usually spicy foods, tomato products, juices, coffee, soda and foods that your sensitive to. After eating do not lie down, allow 3-4 hours before in lie down. And keep the head of bed above 30 degrees to avoid the acid from going up. (5) Hypercholesterolemia: Code(s): E78.00 - Pure hypercholesterolemia, unspecified Category: Medical Plan: Avoid fried foods, chicken skin, eggs, butter margarine, pastries and meat. Be it pork or beef they have a lot of cholesterol LDL goal of less than 130 and triglyceride of less than 150 (6) Generalized anxiety disorder: Comment: Declined referral for counseling Code(s): F41.1 - Generalized anxiety disorder Category: Medical Plan: Continue with medication as needed Plan History of Present Illness The patient is a 64-year-old female presenting for follow-up of multiple chronic conditions and evaluation of preventive health measures. Her significant history includes hypothyroidism well-managed with levothyroxine, hypercholesterolemia with an LDL goal under 130 mg/dL, and general anxiety disorder. She is undergoing evaluation for hematuria, having seen urology recently with a CAT scan planned for further investigation. An ultrasound in December identified a left kidney cyst. Past medical history notes a small bowel obstruction and ongoing management of SVT. The patient's smoking habit remains a relevant factor in her overall health management. Health Maintenance - Up-to-date with mammography - Completed blood work in January: normal blood count, electrolytes, renal function, liver function, vitamin D, and thyroid function; elevated cholesterol at 130 mg/dL - Tetanus booster due, last received in 2012 - Shingles vaccine discussion: informed of side effects, but not administered during the visit - Encouraged smoking cessation - Advised on maintaining adequate hydration - CAT scan scheduled for further hematuria evaluation Social History - Smoker, advised to quit; discussed risks associated with smoking - Last blood tests were in January; involved in comprehensive health follow-up - Engaged with urology for hematuria Review of Systems - Cardiovascular: Denies any new cardiovascular symptoms - Renal/Genitourinary: Reports blood in urine - Musculoskeletal: Denies swelling - Vision: Reports difficulty seeing at night with glare, likely related to lens problem - General: Denies feeling generally unwell despite reported symptoms Physical Exam Results - Labs in January: Normal blood count, electrolytes, renal function, liver function; cholesterol at 130 mg/dL - Ultrasound (December): Left kidney cyst Plan The patient will continue her current regimen for hypothyroidism and cholesterol management, with ongoing monitoring of her cholesterol levels to meet an LDL goal under 130 mg/dL. Her hematuria will be further evaluated with a planned CAT scan, following prior urology consultation. The thyroid cyst will be monitored as per previous ultrasound findings. Emphasis was placed on smoking cessation due to its health risks. Arrangements were made to update her tetanus vaccination and shingles vaccine information was provided. Patient was informed and verbally consented to the use of an ambient scribe for clinic note documentation during this visit. Discussion Notes We discussed the ongoing management of her hypothyroidism and hypercholesterolemia, emphasizing the importance of reaching her cholesterol goals. I recommended smoking cessation as a critical lifestyle modification and provided information about upcoming evaluation for hematuria and kidney cyst monitoring. A tetanus booster will be administered based on her immunization history, and I provided information on the shingles vaccine side effects. We discussed the outcomes of recent blood tests and the importance of hydration and regular follow-ups. We agreed to proceed with the CAT scan for hematuria evaluation and respond based on those findings. Patient Instructions - Continue with current thyroid medication and cholesterol management - Schedule a tetanus booster given it is due - Stay hydrated and monitor for symptoms of concern - Complete the scheduled CAT scan for hematuria evaluation - Strongly advised to stop smoking and explore cessation programs - Monitor any visual changes and follow up with ophthalmology if symptoms persist Orders: Orders Td Immunization Today Z23 - Encounter for immunization
[2025-04-16 09:53] VITALS: BP 110/72; PULSE 86; TEMP 36.1; O2SAT 96; BMI 17.3
--- OUTSIDE RECORDS SUMMARY | 2025-04-16 10:38 | XMS_ITS ---
Author Organization [facility] Address [address] [place] [address] Care Team Providers Care Net Lead Developer Name Role Phone Dominik Alas MD Primary Care Provider Piero Hayward [phone] REASON FOR VISIT cancelling egd /colonoscopy Encounters Encounter Location Date Provider Diagnosis [facility] [address] [place] [address] 12/07/2023 Piero Cedeno Plan Of Treatment No Information Progress Notes * KORY MERIDAADOB:1960 ( 63 yo F)Acc No.[id number]:12/07/2023 Patient:?MAGNOLIA EDDIE :1960???Age:63 Y???Sex:Female Address:[address] [place] [address] [address] , [place], [address] * true * Date:? Generated for Zenaida obregon/Alessia/eTransmitting on:?04/16/2025 10:37 AM EDT
== END 2025-04-16 10:21 | disposition home or self-care (01) ==
LOC: HO.HMCH 09:51
PROVIDERS: PCP Internal Medicine; Visit Provider Internal Medicine
DX: R31.9 Hematuria, unspecified (principal); Z72.0 Tobacco use; E03.9 Hypothyroidism, unspecified; K21.9 Gastro-esophageal reflux disease without esophagitis; E78.00 Pure hypercholesterolemia, unspecified; F41.1 Generalized anxiety disorder; Z23 Encounter for immunization

== ENCOUNTER → 2025-04-16 09:50 | Outpatient (BNVA) | payer OTHER, SELFPAY | PROVIDERS: PCP Internal Medicine; Visit Provider Internal Medicine | DX: F41.1 Generalized anxiety disorder (principal); Z23 Encounter for immunization; R31.9 Hematuria, unspecified; E03.9 Hypothyroidism, unspecified; K21.9 Gastro-esophageal reflux disease without esophagitis; E78.00 Pure hypercholesterolemia, unspecified; Z79.899 Other long term (current) drug therapy; Z72.0 Tobacco use | CPT/HCPCS: 90471; 90714; 99212 ==

== ENCOUNTER 2025-05-01 08:42 | Outpatient (REF) | payer OTHER, SELFPAY ==
--- OUTSIDE RECORDS SUMMARY | 2023-12-13 03:30 | XMS_ITS ---
Author Organization [facility] Address [address] [place] [id number] Care Team Providers Care Linux System Engineer Name Role Phone Dominik Alas MD Primary Care Provider Piero Hayward [phone] REASON FOR VISIT screening, gerd, abnormal ct scan Encounters Encounter Location Date Provider Diagnosis [facility] Outpatient [address] [place] [id number] 12/13/2023 Piero Cedeno Plan Of Treatment No Information Progress Notes * KORY MERIDASEJALB:1960 ( 64 yo F)Acc No.[id number]:12/13/2023 EGD and COL/MAC Patient: EDDIE PINO Provider: Andrew Cedeno MD :1960 A ge:63 Y S ex:Female Date:12/13/2023 Address:[address] [place] [address] [address] , Donato WellerAntonioDEENA [id number] Pcp:Dominik Alas MD Subjective: * Chief Complaints: [...] 12/13/2023 Generated for Printi ng/Faxing/eTransmitting on: 0 05/01/2025 09:02 AM EDT
--- NOTE | ~2025-05-01 | CT_ITS ---
CLINICAL HISTORY: R31.0 - Gross hematuria CT abdomen and pelvis with and without contrast Comparison: None provided Findings: No consolidation or effusion. Unremarkable gallbladder and solid organs. A 1.3 cm right hepatic cyst. No urolithiasis. No hydronephrosis. A 1.5 cm left kidney lower pole cysts. Delayed images demonstrate no filling defect within the renal pelvises or ureters. No urinary bladder calculi. Posterior urinary bladder diverticulum is present. No bowel obstruction, pneumoperitoneum, or pneumatosis. No acute fracture. Pelvic structures are intact. Appendix is not definitely visualized. IMPRESSION: No acute findings. No hydronephrosis, nephrolithiasis or filling defect /mass lesion within the collecting system. No urinary bladder calculus. Posterior urinary bladder diverticulum. This document has been electronically signed by: Tripp Wheeler MD on 05/01/2025 22:10:57
[2025-05-01] MEDS: iohexoL 350 MG/ML 100 ML INFUS..BTL IV (09:35)
== END 2025-05-01 08:43 | disposition home or self-care (01) ==
LOC: HO.CT 08:42
PROVIDERS: PCP Internal Medicine; Visit Provider Nurse Practitioner Family
DX: R31.0 Gross hematuria (principal)
CPT/HCPCS: 74178; Q9967

== ENCOUNTER → 2025-05-01 08:44 | Outpatient (BNV) | payer OTHER, SELFPAY | PROVIDERS: PCP Internal Medicine; Visit Provider Student in an Organized Health Care Education/Training Program | DX: N32.3 Diverticulum of bladder (principal) | CPT/HCPCS: 74178 ==

== ENCOUNTER 2025-05-17 14:12 | Outpatient (AMB) | payer OTHER, SELFPAY ==
--- OUTSIDE RECORDS SUMMARY | 2023-12-13 03:30 | XMS_ITS ---
Author Organization [facility] Address [address] [place] [id number] Care Team Providers Care Occupational Health Nurse Supervisor Name Role Phone Dominik Alas MD Primary Care Provider Piero Hayward [phone] REASON FOR VISIT screening, gerd, abnormal ct scan Encounters Encounter Location Date Provider Diagnosis [facility] [place] Outpatient [address] [place] [phone] 12/13/2023 Piero Cedeno Plan Of Treatment No Information Progress Notes * KORY MERIDASEJALB:1960 ( 64 yo F)Acc No.[id number]:12/13/2023 EGD and COL/MAC Patient: EDDIE PINO Provider: Andrew Cedeno MD :1960 A ge:63 Y S ex:Female Date:12/13/2023 Address:[address] [place] [address] [address] , Donato WellerAntonioDEENA lieberman-[id number] Pcp:Dominik Alas MD Subjective: * Chief Complaints: * 1 . Screening, gerd, abnormal ct scan. * Medical History: Objective: * Vitals: Assessment: Plan: * Treatment: * * The named appointment provid er may or may not be the originator of this progress note, and it is not deemed complete until electronically signed by the appointment provider. Sign off status: Pending * Provider: Andrew Cedeno MD Date: 12/13/2023 Generated for Printi ng/Faxing/eTransmitting on: 0 05/17/2025 02:26 PM EDT
--- NOTE | 2025-05-16 22:12 | MHC.OFFVIS ---
Intake Visit Reasons: Cysto/ CT/Labs Intake Note: Patient presents today for cystoscopy/CT/Labs Urogram CT 04/09 03/30 BUN:12/Creatinin:0.64 Urology Medication:Vitamin B12 Blood Thinner:None Antibiotic Allergies:Sulfa, Cipro, Penicillins Allergies sulfamethoxazole (From Bactrim) Allergy (Severe, Verified 05/17/25 14:26) upset stomach trimethoprim (From Bactrim) Allergy (Severe, Verified 05/17/25 14:26) upset stomach ciprofloxacin (From Cipro) Allergy (Intermediate, Verified 05/17/25 14:26) Nausea Penicillins (PENICILLINS) Allergy (Unknown, Verified 05/17/25 14:26) HIVES simvastatin (SIMVASTATIN) Allergy (Unknown, Verified 05/17/25 14:26) JOINT PAIN omeprazole Adverse Reaction (Intermediate, Verified 05/17/25 14:26) Headache Medication List - Last Reconciled 05/17/25 by Brandon Reynolds MD cholecalciferol (vitamin D3) 50 mcg PO DAILY cyanocobalamin (vitamin B-12) 1,000 mcg PO DAILY ferrous sulfate (Feosol) 325 mg PO DAILY folic acid 1 mg PO DAILY 90 days levothyroxine 88 mcg PO DAILY 90 days lorazepam (Ativan) 0.5 mg PO BID PRN metoprolol succinate ER 12.5 mg (1/2 x 25 mg) PO DAILY HPI Comments Details: 05/17/25-- Here for cysto. Cystoscopy findings: erythematous flattened lesions History of Present Illness - The patient is a 64-year-old female presenting with gross hematuria. - The hematuria was first noticed in February, per patient - A CT scan performed on 05/01/25 showed no significant renal mass or bladder lesion. - Urine cytology reported no evidence of high-grade urothelial carcinoma. - The patient has a history of allergies to Bactrim, Cipro, and penicillin. - A hepatic cyst and renal cyst were identified, with the hepatic cyst measuring 1.3 cm. Results - CT scan on 05/01/25: No significant renal mass or bladder lesion observed. - Urine cytology: No evidence of high-grade urothelial carcinoma. Plan cystoscopy TURBT, bladder biopsies 03/20/25--Cindi is a very pleasant 64-year-old female patient of Dr. Alas. She has a past medical history of anxiety, hypercholesteremia, cataract of the left eye, anemia, GERD, nicotine dependence, hypothyroidism, and vitamin B12 deficiency. She presents to the office today as a new patient for gross hematuria. In discussion with the patient today she reports a longstanding history of nicotine dependence since the age of [age] years old. She smokes approximately 1 pack of cigarettes per day. She reports episode of gross hematuria in January however reports this to be a solitary event and has since subsided. In office urinalysis results reviewed with the patient today. Microscopic hematuria noted. We discussed potential causes of gross hematuria as well as microscopic hematuria. We discussed reasons for blood in the urine may include but are not limited to kidney stones, cancer in the urinary tract, kidney stone disease or inflammatory conditions of the urinary tract. I have discussed workup to include cystoscopy evaluation. She otherwise denies urinary urgency, urinary frequency, incontinence, nocturia, dysuria, foul smelling urine, changes to urinary stream, flank pain, fever, and or chills. She is happy with her current voiding parameters. [facility] Medical History Generalized anxiety disorder Hypercholesterolemia Colonoscopy refused Cataract, left eye Anemia GERD (gastroesophageal reflux disease) Tobacco abuse Hypothyroid Vitamin B12 deficiency Surgical History Hx of cholecystectomy History of eye surgery Family History Father Hypertension CVD (cardiovascular disease) Bladder cancer Mother CVD (cardiovascular disease) Hypertension Lymphoma Maternal Grandmother Uterine cancer Breast cancer Maternal Aunt Ovarian cancer Sister CVD (cardiovascular disease) Social History Housing: Apartment Are you a primary aged or disabled care worker to a significant other at home: No Do you presently have visiting nurse or other home services: No Alcohol intake: former Patient Tobacco Use Status: Current everyday Tobacco user Tobacco use type: Cigarette Cigarette Packs Per Day: 1 Cigarettes Per Day: 20.0 Years Smoked: less than half pack per day 12/2020, pack a day 12/2021 e-Cigarette/Vaping Use: Never Used Second Hand Smoke Exposure: Yes service: No Current occupational status: employed 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 /[employer] Cognitive needs: No Hearing needs: No Vision needs: Yes (Glasses) Review of Systems Const All systems reviewed & are unremarkable except as noted in HPI and below Reports no additional complaints Eyes Reports no additional complaints ENT Reports no additional complaints Card Reports no additional complaints Resp Reports no additional complaints GI Reports no additional complaints Reports as per HPI Musc Reports no additional complaints Skin/Breast Reports system reviewed and no additional complaints, except as documented Neuro Reports no additional complaints Psych Reports no additional complaints Endo Reports no additional complaints Prakash/Lymph Reports no additional complaints Aller/Immun Reports no additional complaints Office Procedures Cystoscopy Consent Discussed risk and benefit or proposed procedure with the patient. Information consent for procedure given to the patient. Discussed technical aspects, risks, benefits and alternatives in full. Addressed all of the patient's questions and concerns regarding the procedure. The patient demonstrated knowledge and understanding. They wish to proceed with this procedure. Preparation The patient was prepped in the usual manner. A destaticizer feeder was present and in the room. Genitalia was prepped with betadine solution in a sterile manner. Lidocaine Jelly 2% was placed into the urethra and 16Fr flexible Olympus cystoscope was inserted into the meatus after adequate lubrication. Procedure Time out per protocol performed. Speculum used as indicated for adequate visualization of urethra, the flexible cystoscope is passed transurethrally: The bladder was inspected in its entirety with utilization retroflexion displaying: Tumor(s): erythematous flattened lesions noted Trabeculation: Mild Mucosal Erthema: mild Orifices: normal shape and position Urethra: normal [id number] DISPOSABLE SCOPE URO-G FLEXIBLE SCOPE Procedure code (CPT) selection complete Office Meds lidocaine HCl 2 % mucosal jelly in applicator Performing Provider: Brandon Reynolds MD [facility] Administered by: Iam Monsalve LPN on 05/17/25 15:00 Dose Route Admin Location Dispensed Lot Number Expiration Date ND Lead Ios Developer 10 mL intra-urethral 20 mL nitrofurantoin monohydrate/macrocrystals 100 mg capsule Performing Provider: Brandon Reynolds MD [facility] Administered by: Iam Monsalve LPN on 05/17/25 15:00 Dose Route Admin Location Dispensed Lot Number Expiration Date ND Lead Ios Developer 100 mg PO 1 cap Results AMB Urinalysis, Automated UA Leukoctes 0 Sarai/uL Last Edit by Haven Raza on 05/17/25 16:48 UA Nitrite Negative Last Edit by Crystal Raza on 05/17/25 16:48 UA Urobilinogen 3.5 mg/dL Last Edit by Crystal Raza on 05/17/25 16:48 UA Protein 0 mg/dL Last Edit by Crystal Raza on 05/17/25 16:48 UA pH 6.0 Last Edit by Crystal Raza on 05/17/25 16:48 UA Blood 10 Garry/uL Last Edit by Crystal Raza on 05/17/25 16:48 UA Specific [place] 1.015 Last Edit by Crystal Raza on 05/17/25 16:48 UA Ketone Negative Last Edit by Crystal Raza on 05/17/25 16:48 UA Bilirubin 0 mg/dL Last Edit by Crystal Raza on 05/17/25 16:48 UA Glucose 0 mg/dL Last Edit by Crystal Raza on 05/17/25 16:48 Results Reviewed Results Reviewed: Laboratory Last Values Urine pH (Auto) 6.0 05/17/25 16:17 Specific [place] (Auto) 1.015 05/17/25 16:17 Urine Protein (Auto) 0 mg/dL 05/17/25 16:17 Glucose (UA)(Auto) 0 mg/dL 05/17/25 16:17 Urine Ketones (Auto) Negative 05/17/25 16:17 Urine Blood (Auto) 10 Garry/uL 05/17/25 16:17 Urine Nitrite (Auto) Negative 05/17/25 16:17 Urine Bilirubin (Auto) 0 mg/dL 05/17/25 16:17 Urine Urobilinogen (Auto) 3.5 mg/dL 05/17/25 16:17 Leukocyte Esterase (Auto) 0 Sarai/uL 05/17/25 16:17 Date of Service: 05/01/25 CLINICAL HISTORY: R31.0 - Gross hematuria CT abdomen and pelvis with and without contrast Comparison: None provided Findings: No consolidation or effusion. Unremarkable gallbladder and solid organs. A 1.3 cm right hepatic cyst. No urolithiasis. No hydronephrosis. A 1.5 cm left kidney lower pole cysts. Delayed images demonstrate no filling defect within the renal pelvises or ureters. No urinary bladder calculi. Posterior urinary bladder diverticulum is present. No bowel obstruction, pneumoperitoneum, or pneumatosis. No acute fracture. Pelvic structures are intact. Appendix is not definitely visualized. IMPRESSION: No acute findings. No hydronephrosis, nephrolithiasis or filling defect /mass lesion within the collecting system. No urinary bladder calculus. Posterior urinary bladder diverticulum. Assessment & Plan Assessment & Plan (1) Hematuria: Code(s): R31.9 - Hematuria, unspecified Category: Medical Qualifiers: Hematuria type: unspecified type Qualified Code(s): R31.9 - Hematuria, unspecified (2) Tobacco abuse: Comment: 08/2022 stopped - continuing to smoke 02/2023 Code(s): Z72.0 - Tobacco use Category: Medical (3) Generalized anxiety disorder: Comment: Declined referral for counseling Code(s): F41.1 - Generalized anxiety disorder Category: Medical Plan: Continue with medication as needed (4) Lesion of bladder: Code(s): N32.9 - Bladder disorder, unspecified Category: Medical Plan cystoscopy TURBT, bladder biopsies, repeat urine cytology Orders: Orders AMB Urinalysis Automated 05/17/25 Z13.9 - Encounter for screening, unspecified Urine Cytology 05/17/25 R31.9 - Hematuria, unspecified AMB Cystoscopy 05/17/25 R31.9 - Hematuria, unspecified Patient Instructions: The patient had an opportunity to ask questions regarding treatment plan. The patient expressed understanding and agreement with the above treatment plan. The patient is aware they should contact our office by phone for worsening of their current condition or the appearance of new symptoms. Compliance is encouraged with any medications and followup testing that is ordered. It is a privilege to be allowed the opportunity to participate in the urologic care of your patient. If you have any questions or concerns regarding treatment for the above conditions please do not hesitate to contact me. The office telephone contact is [phone]. This note is constructed in part using voice recognition software. While every effort has been made to ensure accuracy bioprocessing manufacturing technician errors may have been included. Yours sincerely, Brandon Reynolds MD Scribe Plan - Not visible on output: Patient was informed and verbally consented to the use of an ambient scribe for clinic note documentation during this visit. Coding Level of Care Code Est Pt Level 4 (02406) Diagnoses Hematuria, unspecified type R31.9 Hematuria type: unspecified type Tobacco abuse Z72.0 Generalized anxiety disorder F41.1 Lesion of bladder N32.9 CPT Codes Cystoscopy - CPT: 13916-[id number] ([id number])
== END 2025-05-17 15:22 | disposition home or self-care (01) ==
LOC: HO.HUSH 14:13
PROVIDERS: PCP Internal Medicine; Visit Provider Urology
DX: R31.9 Hematuria, unspecified (principal); Z72.0 Tobacco use; F41.1 Generalized anxiety disorder; N32.9 Bladder disorder, unspecified
CPT/HCPCS: 52000; 99214

== ENCOUNTER 2025-05-17 14:12 | Outpatient (REF) | payer OTHER, SELFPAY | END 2025-05-17 14:13 | disposition home or self-care (01) | LOC: HO.LNP 14:12 | PROVIDERS: PCP Internal Medicine; Visit Provider Urology | DX: R31.9 Hematuria, unspecified (principal); Z13.9 Encounter for screening, unspecified | CPT/HCPCS: 52000; 81003; 88112; 99212 ==

== ENCOUNTER 2025-05-28 07:33 | Outpatient (AMB) | payer OTHER, SELFPAY ==
--- OUTSIDE RECORDS SUMMARY | 2023-12-13 03:30 | XMS_ITS ---
Author Organization [facility] Address [address] [place] [phone] Care Team Providers Care Biology Laboratory Assistant Name Role Phone Dominik Alas MD Primary Care Provider Piero Hayward [phone] REASON FOR VISIT screening, gerd, abnormal ct scan Encounters Encounter Location Date Provider Diagnosis [facility] [place] Outpatient [address] [place] [phone] 12/13/2023 Piero Cedeno Plan Of Treatment No Information Progress Notes * KORY MERIDASEJALB:1960 ( 64 yo F)Acc No.[id number]:12/13/2023 EGD and COL/MAC Patient: EDDIE PINO Provider: Andrew Cedeno MD :1960 A ge:63 Y S ex:Female Date:12/13/2023 Address:[address] [place] [address] [address] , Donato WellerAntonioDEENA lieberman-[id number] Pcp:Dominik Alas MD Subjective: * Chief Complaints: [...] 12/13/2023 Generated for Printi ng/Faxing/eTransmitting on: 0 05/28/2025 07:34 AM EDT
--- NOTE | 2025-05-28 07:33 | MHC.OFFVIS ---
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: No Accompanied by: Self / Same As Patient Allergies sulfamethoxazole (From Bactrim) Allergy (Severe, Verified 05/28/25 07:35) upset stomach trimethoprim (From Bactrim) Allergy (Severe, Verified 05/28/25 07:35) upset stomach ciprofloxacin (From Cipro) Allergy (Intermediate, Verified 05/28/25 07:35) Nausea Penicillins (PENICILLINS) Allergy (Unknown, Verified 05/28/25 07:35) HIVES simvastatin (SIMVASTATIN) Allergy (Unknown, Verified 05/28/25 07:35) JOINT PAIN omeprazole Adverse Reaction (Intermediate, Verified 05/28/25 07:35) Headache Medication List - Last Reconciled 05/28/25 by Brandon Reynolds MD cholecalciferol (vitamin D3) 50 mcg PO DAILY cyanocobalamin (vitamin B-12) 1,000 mcg PO DAILY ferrous sulfate (Feosol) 325 mg PO DAILY folic acid 1 mg PO DAILY 90 days levothyroxine 88 mcg PO DAILY 90 days lorazepam (Ativan) 0.5 mg PO BID PRN metoprolol succinate ER 12.5 mg (1/2 x 25 mg) PO DAILY HPI Comments Details: 05/28/25--Cindi is a 64-year-old female who is being evaluated for gross hematuria she was last seen on 05/17/2025 for office cystoscopy there were some irregular findings on cystoscopy and plan is to proceed with cystoscopy bladder biopsies. The patient had some questions, and I have reviewed that procedure will be done as a outpatient day procedure, the anesthesiologist we will review the anesthetic needed for safety in performing the procedure. The patient may require a Hernandez catheter after the procedure. No driving for 24 hours after anesthesia. If she requires a catheter, she will need to be out of work until the catheter is removed. Results:-urine cytology 05/17/2025--negative for malignant cells 05/17/25-- Here for cysto. Cystoscopy findings: erythematous flattened lesions History of Present Illness - The patient is a 64-year-old female presenting with gross hematuria. - The hematuria was first noticed in February, per patient - A CT scan performed on 05/01/25 showed no significant renal mass or bladder lesion. - Urine cytology reported no evidence of high-grade urothelial carcinoma. - The patient has a history of allergies to Bactrim, Cipro, and penicillin. - A hepatic cyst and renal cyst were identified, with the hepatic cyst measuring 1.3 cm. Results - CT scan on 05/01/25: No significant renal mass or bladder lesion observed. - Urine cytology: No evidence of high-grade urothelial carcinoma. Plan cystoscopy TURBT, bladder biopsies 03/20/25--Cindi is a very pleasant 64-year-old female patient of Dr. Alas. She has a past medical history of anxiety, hypercholesteremia, cataract of the left eye, anemia, GERD, nicotine dependence, hypothyroidism, and vitamin B12 deficiency. She presents to the office today as a new patient for gross hematuria. In discussion with the patient today she reports a longstanding history of nicotine dependence since the age of [age] years old. She smokes approximately 1 pack of cigarettes per day. She reports episode of gross hematuria in January however reports this to be a solitary event and has since subsided. In office urinalysis results reviewed with the patient today. Microscopic hematuria noted. We discussed potential causes of gross hematuria as well as microscopic hematuria. We discussed reasons for blood in the urine may include but are not limited to kidney stones, cancer in the urinary tract, kidney stone disease or inflammatory conditions of the urinary tract. I have discussed workup to include cystoscopy evaluation. She otherwise denies urinary urgency, urinary frequency, incontinence, nocturia, dysuria, foul smelling urine, changes to urinary stream, flank pain, fever, and or chills. She is happy with her current voiding parameters. [facility] Medical History Generalized anxiety disorder Hypercholesterolemia Colonoscopy refused Cataract, left eye Anemia GERD (gastroesophageal reflux disease) Tobacco abuse Hypothyroid Vitamin B12 deficiency Surgical History Hx of cholecystectomy History of eye surgery Family History Father Hypertension CVD (cardiovascular disease) Bladder cancer Mother CVD (cardiovascular disease) Hypertension Lymphoma Maternal Grandmother Uterine cancer Breast cancer Maternal Aunt Ovarian cancer Sister CVD (cardiovascular disease) Social History Housing: Apartment Are you a primary acute care physical therapist to a significant other at home: No Do you presently have visiting nurse or other home services: No Alcohol intake: former Patient Tobacco Use Status: Current everyday Tobacco user Tobacco use type: Cigarette Cigarette Packs Per Day: 1 Cigarettes Per Day: 20.0 Years Smoked: less than half pack per day 12/2020, pack a day 12/2021 e-Cigarette/Vaping Use: Never Used Second Hand Smoke Exposure: Yes service: No Current occupational status: employed 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 /[employer] Cognitive needs: No Hearing needs: No Vision needs: Yes (Glasses) Review of Systems Const All systems reviewed & are unremarkable except as noted in HPI and below Reports no additional complaints Eyes Reports no additional complaints ENT Reports no additional complaints Card Reports no additional complaints Resp Reports no additional complaints GI Reports no additional complaints Reports as per HPI Musc Reports no additional complaints Skin/Breast Reports system reviewed and no additional complaints, except as documented Neuro Reports no additional complaints Psych Reports no additional complaints Endo Reports no additional complaints Prakash/Lymph Reports no additional complaints Aller/Immun Reports no additional complaints Telehealth Telehealth Telehealth Platform: [facility] Location of provider rendering services: practice address Location of patient: address on file Patient Identification confirmed using: Name, : Yes Telehealth method: video Patient verbally consented to treatment: Yes Patient verbally consented to billing insurance company: Yes Patient informed of any privacy concerns related to visit: Yes Results Reviewed Results Reviewed: Date of Service: 05/01/25 CLINICAL HISTORY: R31.0 - Gross hematuria CT abdomen and pelvis with and without contrast Comparison: None provided Findings: No consolidation or effusion. Unremarkable gallbladder and solid organs. A 1.3 cm right hepatic cyst. No urolithiasis. No hydronephrosis. A 1.5 cm left kidney lower pole cysts. Delayed images demonstrate no filling defect within the renal pelvises or ureters. No urinary bladder calculi. Posterior urinary bladder diverticulum is present. No bowel obstruction, pneumoperitoneum, or pneumatosis. No acute fracture. Pelvic structures are intact. Appendix is not definitely visualized. IMPRESSION: No acute findings. No hydronephrosis, nephrolithiasis or filling defect /mass lesion within the collecting system. No urinary bladder calculus. Posterior urinary bladder diverticulum. Assessment & Plan Assessment & Plan (1) Hematuria: Code(s): R31.9 - Hematuria, unspecified Category: Medical Qualifiers: Hematuria type: unspecified type Qualified Code(s): R31.9 - Hematuria, unspecified (2) Tobacco abuse: Comment: 08/2022 stopped - continuing to smoke 02/2023 Code(s): Z72.0 - Tobacco use Category: Medical (3) Lesion of bladder: Code(s): N32.9 - Bladder disorder, unspecified Category: Medical Plan cystoscopy TURBT, bladder biopsies, possible hernandez catheter insertion Patient Instructions: The patient had an opportunity to ask questions regarding treatment plan. The patient expressed understanding and agreement with the above treatment plan. The patient is aware they should contact our office by phone for worsening of their current condition or the appearance of new symptoms. Compliance is encouraged with any medications and followup testing that is ordered. It is a privilege to be allowed the opportunity to participate in the urologic care of your patient. If you have any questions or concerns regarding treatment for the above conditions please do not hesitate to contact me. The office telephone contact is [phone]. This note is constructed in part using voice recognition software. While every effort has been made to ensure accuracy experimental machining lab manager errors may have been included. Yours sincerely, Brandon Reynolds MD Coding Level of Care Code Tele Est Pt Level 3 (77920) Diagnoses Hematuria, unspecified type R31.9 Hematuria type: unspecified type Tobacco abuse Z72.0 Lesion of bladder N32.9
== END 2025-05-28 09:00 | disposition home or self-care (01) ==
LOC: HO.HUSH 07:33
PROVIDERS: PCP Internal Medicine; Visit Provider Urology
DX: R31.9 Hematuria, unspecified (principal); Z72.0 Tobacco use; N32.9 Bladder disorder, unspecified
CPT/HCPCS: 98003

== ENCOUNTER → 2025-05-28 07:33 | Outpatient (REF) | payer OTHER, SELFPAY ==
--- NOTE | 2025-05-28 14:16 | ECG_ITS ---
Test Reason : preop Blood Pressure : */* mmHG Vent. Rate : 92 BPM Atrial Rate : 92 BPM P-R Int : 156 ms QRS Dur : 66 ms QT Int : 366 ms P-R-T Axes : 84 73 76 degrees QTcB Int : 452 ms Normal sinus rhythm Possible Left atrial enlargement Borderline ECG When compared with ECG of 20-Sep-2015 07:08, No significant change was found Referred By: Brandon Reynolds Electronically Signed By: Murphy Elizabeth
== END ==
LOC: HO.CARD 07:33
PROVIDERS: PCP Internal Medicine; Visit Provider Urology
DX: R31.9 Hematuria, unspecified (principal); R20.0 Anesthesia of skin; R20.2 Paresthesia of skin; R00.2 Palpitations; I47.10 Supraventricular tachycardia, unspecified
CPT/HCPCS: 93005

== ENCOUNTER → 2025-05-28 14:16 | Outpatient (BNV) | payer OTHER, SELFPAY | PROVIDERS: PCP Internal Medicine; Visit Provider Internal Medicine Cardiovascular Disease | DX: Z01.810 Encounter for preprocedural cardiovascular examination (principal) | CPT/HCPCS: 93010 ==

== ENCOUNTER 2025-06-01 14:26 | Outpatient (AMB) | payer OTHER, SELFPAY ==
--- OUTSIDE RECORDS SUMMARY | 2023-12-13 03:30 | XMS_ITS ---
Author Organization [facility] Address [address] [place] [address] Care Team Providers Care Safety Deposit Boxes Custodian Name Role Phone Dominik Alas MD Primary Care Provider Piero Hayward [phone] REASON FOR VISIT screening, gerd, abnormal ct scan Encounters Encounter Location Date Provider Diagnosis [facility] [place] [address] [place] [phone] 12/13/2023 Piero Cedeno Plan Of Treatment No Information Progress Notes * KORY MERIDASEJALB:1960 ( 64 yo F)Acc No.[id number]:12/13/2023 EGD and COL/MAC Patient: EDDIE PINO Provider: Andrew Cedeno MD :1960 A ge:63 Y S ex:Female Date:12/13/2023 Address:[address] [place] [address] [address] , Donato WellerAntonioDEENA lieberman-[id number] Pcp:Dominik Alas MD Subjective: * Chief Complaints: [...] 12/13/2023 Generated for Printi ng/Faxing/eTransmitting on: 0 06/01/2025 02:28 PM EDT
--- NOTE | 2025-06-01 14:51 | AM.OFFVISNUR ---
Intake Visit Reasons: PVR/UA Allergies sulfamethoxazole (From Bactrim) Allergy (Severe, Verified 05/28/25 07:35) upset stomach trimethoprim (From Bactrim) Allergy (Severe, Verified 05/28/25 07:35) upset stomach ciprofloxacin (From Cipro) Allergy (Intermediate, Verified 05/28/25 07:35) Nausea Penicillins (PENICILLINS) Allergy (Unknown, Verified 05/28/25 07:35) HIVES simvastatin (SIMVASTATIN) Allergy (Unknown, Verified 05/28/25 07:35) JOINT PAIN omeprazole Adverse Reaction (Intermediate, Verified 05/28/25 07:35) Headache Office Procedures Post Void Residual Post Residual Void Details: Patient presents to office for PVR and UA after reporting that she has some discomfort around her bladder area and is unsure if she is emptying all the way, wanted to be sure of no infection prior to procedure scheduled next week. UA not indicative of infection, bladder scanned for 127mls. Advised patient that her reporting hot and cold flashes, pain in her abdomen and fevers that she should seek care from primary care provider or urgent care/ER. Patient stated she would not be going to ER as it is too long of a wait, but would see if urgent care could see her. Let patient know to keep office updated. Patient agreeable Post Void Residual (PVR): 127 [id number] Void Residual by ultrasound Assessment & Plan Assessment & Plan Orders: Orders AMB Urinalysis Automated Today N32.9 - Bladder disorder, unspecified, R31.9 - Hematuria, unspecified AMB Post Void Residual by ultrasound Today N32.9 - Bladder disorder, unspecified, R31.9 - Hematuria, unspecified Coding CPT Codes Post Residual Void - PVR CPT Code: 75047-Nsis Void Residual by ultrasound ([id number])
== END 2025-06-01 15:07 | disposition home or self-care (01) ==
LOC: HO.HUSH 14:26
PROVIDERS: PCP Internal Medicine; Visit Provider Urology
DX: N32.9 Bladder disorder, unspecified (principal); R31.9 Hematuria, unspecified

== ENCOUNTER 2025-06-01 15:03 | Emergency (ER) | payer OTHER, SELFPAY ==
[2025-06-01 15:13] VITALS: BP 131/79; PULSE 90; RESP 16; TEMP 37; O2SAT 96; BMI 17.6
--- NOTE | 2025-06-01 15:14 | ED.GENADULT ---
HPI - General Adult General Chief complaint: Abdominal Pain Stated complaint: lower right extremity pain Related Data Home Medications ?Medication ?Instructions ?Recorded ?Confirmed cholecalciferol (vitamin D3) 50 50 mcg PO DAILY 08/21/20 06/01/25 mcg (2,000 unit) capsule cyanocobalamin (vitamin B-12) 1,000 mcg PO DAILY 08/21/20 06/01/25 1,000 mcg capsule ferrous sulfate 325 mg (65 mg 325 mg PO DAILY 08/21/20 06/01/25 iron) tablet (Feosol) Previous Rx's ?Medication ?Instructions ?Recorded folic acid 1 mg tablet 1 mg PO DAILY 90 days #90 tabs 09/17/22 levothyroxine 88 mcg tablet 88 mcg PO DAILY 90 days #90 tabs 02/14/25 lorazepam 0.5 mg tablet (Ativan) 0.5 mg PO BID PRN anxiety #60 tabs 03/30/25 metoprolol succinate 25 mg 12.5 mg (1/2 x 25 mg) PO DAILY #15 04/13/25 tablet,extended release 24 hr tabs Allergies Allergy/AdvReac Type Severity Reaction Status Date / Time sulfamethoxazole (From Allergy Severe upset Verified 06/01/25 15:16 Bactrim) stomach trimethoprim (From Bactrim) Allergy Severe upset Verified 06/01/25 15:16 stomach ciprofloxacin (From Cipro) Allergy Intermediate Nausea Verified 06/01/25 15:16 Penicillins (PENICILLINS) Allergy Unknown HIVES Verified 06/01/25 15:16 simvastatin (SIMVASTATIN) Allergy Unknown JOINT PAIN Verified 06/01/25 15:16 omeprazole AdvReac Intermediate Headache Verified 06/01/25 15:16 pantoprazole AdvReac Intermediate Headache Verified 06/01/25 15:18 [facility] Past Medical History Medical History (Updated 06/01/25 @ 19:20 by Baljinder Arias) Generalized anxiety disorder Hypercholesterolemia Colonoscopy refused Cataract, left eye Anemia GERD (gastroesophageal reflux disease) Tobacco abuse Hypothyroid Vitamin B12 deficiency Surgical History (Updated 06/01/25 @ 12:47 by Mariah Ag RN) Hx of right cataract extraction Hx of cholecystectomy History of eye surgery Family History Family History Father Hypertension CVD (cardiovascular disease) Bladder cancer Mother CVD (cardiovascular disease) Hypertension Lymphoma Maternal Grandmother Uterine cancer Breast cancer Maternal Aunt Ovarian cancer Sister CVD (cardiovascular disease) Social History Social History Housing: Apartment Are you a primary health care sanitary technician to a significant other at home: No Do you presently have visiting nurse or other home services: No Alcohol intake: former Patient Tobacco Use Status: Current everyday Tobacco user Tobacco use type: Cigarette Cigarette Packs Per Day: 1 Cigarettes Per Day: 20.0 Years Smoked: less than half pack per day 12/2020, pack a day 12/2021 e-Cigarette/Vaping Use: Never Used Second Hand Smoke Exposure: Yes service: No Current occupational status: employed 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 She reports that she has had abdominal pain for 1 week mostly in the right lower abdomen/groin. She went to her urologist and reportedly had a negative UA. She is planned to have a biopsy of a lesion in the bladder on Wednesday, in 4 days. Plan for labs, urinalysis. Will defer any potential advanced imaging Reevaluation(s) Reevaluation #1: Patient approached the triage desk asking how long the wait would be. We are unable to give her an exact wait time before she was brought back. She reports that she can not drive during nighttime and informed us that she would be leaving. We were unable to convince her to stay. I did review her labs and there were no critical findings. She left without giving urinalysis and potential imaging Time: 19:19 Medical Decision Making Lab Data 06/01/25 15:51 06/01/25 15:51 Labs: Lab Results 06/01/25 Range/Units 15:51 WBC 7.3 (4.8-10.8) X10*3/uL RBC 3.84 L (4.20-5.50) X10*6/uL Hgb 12.6 (12.0-16.0) g/dl Hct 36.4 L (37.0-47.0) % MCV 94.8 (80.0-98.0) fL MCH 32.8 (27.0-33.0) pg MCHC 34.6 (31.0-35.0) g/dl RDW 12.0 (11.0-16.0) % Plt Count 263 (160-400) X10*3/uL MPV 9.7 (9.4-12.3) fL Immature Gran % (Auto) 1.2 H (0.0-0.4) % Neut % (Auto) 56.6 (45-73) % Lymph % (Auto) 31.1 (20-40) % [place] % (Auto) 8.5 (2-11) % Eos % (Auto) 1.8 (0-4) % Baso % (Auto) 0.8 (0-2) % Lymph # (Auto) 2.3 (1.2-4.9) X10*3/uL [place] # (Auto) 0.6 (0.1-1.2) X10*3/uL Eos # (Auto) 0.1 (0.0-0.4) X10*3/uL Baso # (Auto) 0.1 (0.0-0.2) X10*3/uL Abs Immat Gran (auto) 0.09 H (0.00-0.03) X10*3/uL Absolute Neuts (auto) 4.2 (2.0-8.3) x10*3/uL Absolute Nucleated RBC 0.000 (0.0-0.012) X10*3/uL Nucleated RBC % (auto) 0.0 (0.0-0.2) /100WBC Sodium 140 (135-145) mmol/L Potassium 3.7 (3.3-5.1) mmol/L Chloride 107 (96-108) mmol/L Carbon Dioxide 24 (22-29) mmol/L Anion Gap 13 (12-20) BUN 11 (9-16) mg/dL Creatinine 0.65 (0.5-1.4) mg/dL Estim Creat Clear Calc 61.7 Estimated GFR > 60 Random Glucose 101 (60-115) mg/dL Calcium 8.6 D (8.4-10.2) mg/dL Total Bilirubin 0.3 (0.0-1.0) mg/dL AST 17 (5-31) U/L ALT 17 (0-31) U/L Alkaline Phosphatase 69 (39-117) U/L Total Protein 6.1 L (6.5-8.0) g/dL Albumin 3.9 (3.5-5.0) g/dL Lipase 23 (8-78) U/L Discharge Plan Discharge Clinical Impression: Abdominal pain Patient Disposition: Left W/O Completing Treatment Prescriptions: No Action folic acid 1 mg tablet 1 mg PO DAILY 90 Days Qty: 90 3RF levothyroxine 88 mcg tablet 88 mcg PO DAILY 90 Days Qty: 90 3RF lorazepam [Ativan] 0.5 mg tablet 0.5 mg PO BID PRN (Reason: anxiety) Qty: 60 2RF metoprolol succinate 25 mg tablet extended release 24 hr 12.5 mg PO DAILY Qty: 15 1RF Rx Instructions: SVT hx cyanocobalamin (vitamin B-12) 1,000 mcg capsule 1,000 mcg PO DAILY ferrous sulfate [Feosol] 325 mg (65 mg iron) tablet 325 mg PO DAILY cholecalciferol (vitamin D3) 50 mcg (2,000 unit) capsule 50 mcg PO DAILY
[2025-06-01 15:55] LABS: MANUAL DIFF FLAG NO
[2025-06-01 15:59] LABS: Hematocrit 36.4 % (37.0-47.0); Hemoglobin 12.6 g/dl (12.0-16.0); Imm Gran Abs Auto 0.09 X10*3/uL (0.00-0.03); Imm Gran Pct Auto 1.2 % (0.0-0.4); Lymphocytes Absolute Auto 2.3 X10*3/uL (1.2-4.9); Mean Corpuscular HGB Conc 34.6 g/dl (31.0-35.0); Mean Corpuscular Hemoglobin 32.8 pg (27.0-33.0); Mean Corpuscular Volume 94.8 fL (80.0-98.0); NRBC Abs Auto 0.000 X10*3/uL (0.0-0.012); NRBC Pct Auto 0.0 /100WBC (0.0-0.2); Platelet Count 263 X10*3/uL (160-400); Red Blood Count 3.84 X10*6/uL (4.20-5.50); White Blood Count 7.3 X10*3/uL (4.8-10.8)
[2025-06-01 16:11] LABS: Alanine Aminotransferase 17 U/L (0-31); Albumin Level 3.9 g/dL (3.5-5.0); Alkaline Phosphatase 69 U/L (39-117); Anion Gap 13 (12-20); Aspartate Amino Transferase 17 U/L (5-31); Blood Urea Nitrogen 11 mg/dL (9-16); Calcium 8.6 mg/dL (8.4-10.2); Carbon Dioxide 24 mmol/L (22-29); Chloride 107 mmol/L (96-108); Creatinine Clr Calc Pharmacy 61.7; Estimated Glomerular Filt Rate > 60; Lipase 23 U/L (8-78); Potassium 3.7 mmol/L (3.3-5.1); Sodium 140 mmol/L (135-145); Total Protein 6.1 g/dL (6.5-8.0)
--- NOTE | 2025-06-01 19:20 | PC.NURSE ---
Patient approached triage door asking when she will be brought back into department, apologized for delay, stated we are unable to provider wait times. Patient states she has to leave because she cannot drive at night. T/w and provider Zoran encouraged patient to stay. Unable to convince patient to remain in dept. Patient observed to be walking out of dept with steady gait, LWCT.
== END 2025-06-01 19:30 | disposition left against medical advice (07) ==
PROVIDERS: Physician Assistant; Emergency Provider Emergency Medicine; PCP Internal Medicine
DX: R10.31 Right lower quadrant pain (principal); Z53.21 Procedure and treatment not carried out due to patient leaving prior to being seen by health care provider
CPT/HCPCS: 36415; 51798; 80053; 81003; 83690; 85025; 99281; 99283

== ENCOUNTER 2025-06-05 09:48 | Day surgery (SDC) | payer OTHER, SELFPAY ==
--- OUTSIDE RECORDS SUMMARY | 2023-12-13 03:30 | XMS_ITS ---
Author Organization [facility] Address [address] [place] [address] Care Team Providers Care Pmp Certified Project Manager Name Role Phone Dominik Alas MD Primary Care Provider Piero Hayward [phone] REASON FOR VISIT screening, gerd, abnormal ct scan Encounters Encounter Location Date Provider Diagnosis [facility] [place] Outpatient [address] [place] [phone] 12/13/2023 Piero Cedeno Plan Of Treatment No Information Progress Notes * KORY MERIDASEJALB:1960 ( 64 yo F)Acc No.[id number]:12/13/2023 EGD and COL/MAC Patient: EDDIE PINO Provider: Andrew Cedeno MD :1960 A ge:63 Y S ex:Female Date:12/13/2023 Address:[address] [place] [address] [address] , Donato WellerAntonioDEENA lieberman-[id number] Pcp:Dominik Alas MD Subjective: * Chief Complaints: [...] 12/13/2023 Generated for Printi ng/Faxing/eTransmitting on: 0 05/21/2025 04:15 PM EDT
[2025-06-01 12:50] VITALS: BMI 17.3
--- NOTE | 2025-06-04 12:54 | HO.ANESPROP2 ---
Documented by User: Nancy Purdy NP 06/04/25 12:54 HPI - Anesthesia Eval Consult details Narrative: 64yo F for TUR Bladder Tumor,with Cystoscopy & Bladder Biopsy PMFSH Active Problems Active Problems: All Active Problems Lesion of bladder (Acute) Hematuria (Acute) Actinic keratosis (Acute) SVT (supraventricular tachycardia) (Acute) Bronchitis (Acute) Preop exam for internal medicine (Acute) Pancolitis (Acute) Cataract, right eye (Acute) Small bowel obstruction (Acute) Thoracic back pain (Acute) Gallbladder sludge (Acute) Palpitations (Acute) Cervicalgia (Acute) Colon cancer screening (Acute) Colonoscopy refused (Acute) Generalized anxiety disorder (Acute) Annual physical exam (Acute) Musculoskeletal neck pain (Acute) Right hand pain (Acute) Numbness and tingling in both hands (Acute) Hemorrhoid (Acute) Hearing loss (Acute) Bilateral hand numbness (Acute) Trigger finger, right (Acute) Neck pain (Acute) Knee pain, bilateral (Acute) MRSA exposure (Acute) Hypercholesterolemia (Acute) GERD (gastroesophageal reflux disease) (Acute) Tobacco abuse (Acute) Hypothyroid (Acute) Vitamin B12 deficiency (Acute) Past Medical History Medical History Generalized anxiety disorder Hypercholesterolemia Colonoscopy refused Cataract, left eye Anemia GERD (gastroesophageal reflux disease) Tobacco abuse Hypothyroid Vitamin B12 deficiency Family History Family History Father Hypertension CVD (cardiovascular disease) Bladder cancer Mother CVD (cardiovascular disease) Hypertension Lymphoma Maternal Grandmother Uterine cancer Breast cancer Maternal Aunt Ovarian cancer Sister CVD (cardiovascular disease) Surgical History Surgical History Hx of right cataract extraction Hx of cholecystectomy History of eye surgery Social History Social History Housing: Apartment Are you a primary care technician to a significant other at home: No Do you presently have visiting nurse or other home services: No Alcohol intake: former Patient Tobacco Use Status: Current everyday Tobacco user Tobacco use type: Cigarette Cigarette Packs Per Day: 1 Cigarettes Per Day: 20.0 Years Smoked: less than half pack per day 12/2020, pack a day 12/2021 e-Cigarette/Vaping Use: Never Used Second Hand Smoke Exposure: No Have you been hit, kicked, punched, or otherwise hurt by someone within the past year? 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 /[employer] Cognitive needs: No Hearing needs: No Vision needs: Yes (Glasses) Meds Allergies Allergy/AdvReac Type Severity Reaction Status Date / Time sulfamethoxazole (From Allergy Severe upset Verified 06/01/25 15:16 Bactrim) stomach trimethoprim (From Bactrim) Allergy Severe upset Verified 06/01/25 15:16 stomach ciprofloxacin (From Cipro) Allergy Intermediate Nausea Verified 06/01/25 15:16 Penicillins (PENICILLINS) Allergy Unknown Swelling Verified 06/05/25 10:16 simvastatin (SIMVASTATIN) Allergy Unknown JOINT PAIN Verified 06/01/25 15:16 omeprazole AdvReac Intermediate Headache Verified 06/01/25 15:16 pantoprazole AdvReac Intermediate Headache Verified 06/01/25 15:18 Home Medications ?Medication ?Instructions ?Recorded ?Confirmed ?Last Taken ?Type cholecalciferol (vitamin D3) 50 50 mcg PO DAILY 08/21/20 06/01/25 Unknown History mcg (2,000 unit) capsule cyanocobalamin (vitamin B-12) 1,000 mcg PO DAILY 08/21/20 06/01/25 Unknown History 1,000 mcg capsule ferrous sulfate 325 mg (65 mg 325 mg PO DAILY 08/21/20 06/01/25 Unknown History iron) tablet (Feosol) Exam Height,Weight and Vital Signs: Height 5 ft 2 in Weight 42.864 kg Assessment and Plan Assessment Anesthesia Assessment: Chart Reviewed Documented by User: Kayy Dowling MD 06/05/25 10:31 [facility] Past Medical History Medical History Generalized anxiety disorder Hypercholesterolemia Colonoscopy refused Cataract, left eye Anemia GERD (gastroesophageal reflux disease) Tobacco abuse Hypothyroid Vitamin B12 deficiency Family History Family History Father Hypertension CVD (cardiovascular disease) Bladder cancer Mother CVD (cardiovascular disease) Hypertension Lymphoma Maternal Grandmother Uterine cancer Breast cancer Maternal Aunt Ovarian cancer Sister CVD (cardiovascular disease) Family history of problems with anesthesia: No Surgical History Surgical History Hx of right cataract extraction Hx of cholecystectomy History of eye surgery History of Problems with Anesthesia: No Social History Social History Housing: Apartment Are you a primary care technician to a significant other at home: No Do you presently have visiting nurse or other home services: No Alcohol intake: former Patient Tobacco Use Status: Current everyday Tobacco user Tobacco use type: Cigarette Cigarette Packs Per Day: 1 Cigarettes Per Day: 20.0 Years Smoked: less than half pack per day 12/2020, pack a day 12/2021 e-Cigarette/Vaping Use: Never Used Second Hand Smoke Exposure: No Have you been hit, kicked, punched, or otherwise hurt by someone within the past year? 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 /[employer] Cognitive needs: No Hearing needs: No Vision needs: Yes (Glasses) Meds Allergies Allergy/AdvReac Type Severity Reaction Status Date / Time sulfamethoxazole (From Allergy Severe upset Verified 06/01/25 15:16 Bactrim) stomach trimethoprim (From Bactrim) Allergy Severe upset Verified 06/01/25 15:16 stomach ciprofloxacin (From Cipro) Allergy Intermediate Nausea Verified 06/01/25 15:16 Penicillins (PENICILLINS) Allergy Unknown Swelling Verified 06/05/25 10:16 simvastatin (SIMVASTATIN) Allergy Unknown JOINT PAIN Verified 06/01/25 15:16 omeprazole AdvReac Intermediate Headache Verified 06/01/25 15:16 pantoprazole AdvReac Intermediate Headache Verified 06/01/25 15:18 Home Medications ?Medication ?Instructions ?Recorded ?Confirmed ?Last Taken ?Type cholecalciferol (vitamin D3) 50 50 mcg PO DAILY 08/21/20 06/01/25 Unknown History mcg (2,000 unit) capsule cyanocobalamin (vitamin B-12) 1,000 mcg PO DAILY 08/21/20 06/01/25 Unknown History 1,000 mcg capsule ferrous sulfate 325 mg (65 mg 325 mg PO DAILY 08/21/20 06/01/25 Unknown History iron) tablet (Feosol) Exam Airway Mallampati Class: II TM Dist: <=3cm Neck ROM: Limited Denture: Upper and Lower Heart: rrr Assessment and Plan Assessment Anesthesia Assessment: Anesthesia Plan Discussed Final Anesthetic Review Family History of Problems with Anesthesia: No History of Problems with Anesthesia: No NPO: Yes ASA Class: III Final Preanesthetic Review: No Changes in Pt Med Stat, Meds/Allgs Chart Reviewed, Consent Obtained/Reviewed and Anes Risks/Benef Reviewed Patient Risk: Intermediate Procedure Risk: Intermediate Anesthetic Plan Anesthetic Plan: GA (wants only propofol for anesthesia , no other sedative hypnotics or anxiolytics or antinausea agents or pain killers.. info relayed to Fred BILL) Disposition: Standard PACU
[2025-06-05] VITALS (7 sets, daily range): BP systolic 79–116; BP diastolic 48–74; PULSE 58–82; RESP 16; TEMP 36.1–36.8; O2SAT 96–98; BMI 17.5
[2025-06-05] MEDS: Lactated Ringers 1,000 ML 100 ML IVCONT (10:16)
--- NOTE | 2025-06-05 10:34 | MHC.SHP ---
Pre-Procedural Eval Section A - 24 Hr Update-Section A only Date of Service: 06/05/25 The patient is an INPATIENT: No The patient has been examined within 24 hours of the surgical procedure. The History & Physical has been completed within 30 days and I have reviewed it.: Yes Section B - Complete if H&P > 30 days Chief Complaint: Bladder disorder, unspecified Allergies: Allergies Allergy/AdvReac Type Severity Reaction Status Date / Time sulfamethoxazole (From Allergy Severe upset Verified 06/01/25 15:16 Bactrim) stomach trimethoprim (From Bactrim) Allergy Severe upset Verified 06/01/25 15:16 stomach ciprofloxacin (From Cipro) Allergy Intermediate Nausea Verified 06/01/25 15:16 Penicillins (PENICILLINS) Allergy Unknown Swelling Verified 06/05/25 10:16 simvastatin (SIMVASTATIN) Allergy Unknown JOINT PAIN Verified 06/01/25 15:16 omeprazole AdvReac Intermediate Headache Verified 06/01/25 15:16 pantoprazole AdvReac Intermediate Headache Verified 06/01/25 15:18 Plan Diagnosis/Plan: Unchanged I have reviewed the history and physical and performed a pertinent physical examination on my patient. No changes have occurred unless specified. Cystoscopy. TURBT, bladder biopsies.. Cystoscopy. Discussed risks to include but not limited to, blood in the urine, burning with urination, urgency. Time Spent With Patient Time: Total time managing care of this patient today ____ minutes.
--- NOTE | 2025-06-05 10:35 | W.PM.OPN ---
Operative Note Operative Note Date of Service: 06/05/25 Narrative: PREOP DIAGNOSIS: Microscopic hematuria POSTOP DIAGNOSIS: Microscopic hematuria PROCEDURE: CYSTOSCOPY Bladder biopsy SURGEON: Brandon Reynolds MD ANESTHESIA: General Indications: Office cystoscopy erythematous changes, here for bladder biopsy Details of procedure: The patient was brought into the operating room placed on the OR table in supine position. Antibiotics confirmed. General anesthesia was administered. The patient was repositioned into lithotomy position, prepped and draped in the usual sterile fashion. Time-out was done per protocol. A 22 fr cystoscope was placed transurethrally into the bladder. The right and left ureteral orifices were visualized. The entire bladder was visualized. Mild erythematous changes noted, left posterior wall, biopsy obtained, hemostasis obtained. The cystoscope was removed. The patient was brought out of anesthesia and taken to recovery in stable condition. Complications: None EBL: minimal (<5 mL)
== END 2025-06-05 12:30 | disposition home or self-care (01) ==
PROVIDERS: PCP Internal Medicine; Visit Provider Urology
PROC: 0TBB8ZZ Excision of Bladder, Via Natural or Artificial Opening Endoscopic (ICD-10-PCS; CPT 52204; principal; 2025-06-05 11:50)
DX: N32.9 Bladder disorder, unspecified (principal); R31.9 Hematuria, unspecified; D64.9 Anemia, unspecified; E53.8 Deficiency of other specified B group vitamins; E78.00 Pure hypercholesterolemia, unspecified; E03.9 Hypothyroidism, unspecified; K21.9 Gastro-esophageal reflux disease without esophagitis; F41.1 Generalized anxiety disorder; Z79.899 Other long term (current) drug therapy; Z88.0 Allergy status to penicillin; Z88.1 Allergy status to other antibiotic agents; Z88.2 Allergy status to sulfonamides; Z88.8 Allergy status to other drugs, medicaments and biological substances; Z90.49 Acquired absence of other specified parts of digestive tract; Z98.890 Other specified postprocedural states; F17.210 Nicotine dependence, cigarettes, uncomplicated
CPT/HCPCS: 52204; 88305; 88342; 88360; J0690; J1956; J2003; J2704

== ENCOUNTER → 2025-06-05 09:48 | Outpatient (BNV) | payer OTHER, SELFPAY | PROVIDERS: PCP Internal Medicine; Visit Provider Urology | DX: R31.29 Other microscopic hematuria (principal) | CPT/HCPCS: 52204 ==

== ENCOUNTER 2025-07-05 07:20 | Outpatient (AMB) | payer OTHER, SELFPAY ==
--- NOTE | 2025-07-05 07:21 | MHC.OFFVIS ---
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 Accompanied by: Self / Same As Patient Allergies sulfamethoxazole (From Bactrim) Allergy (Severe, Verified 07/05/25 07:22) upset stomach trimethoprim (From Bactrim) Allergy (Severe, Verified 07/05/25 07:22) upset stomach ciprofloxacin (From Cipro) Allergy (Intermediate, Verified 07/05/25 07:22) Nausea Penicillins (PENICILLINS) Allergy (Unknown, Verified 07/05/25 07:22) Swelling simvastatin (SIMVASTATIN) Allergy (Unknown, Verified 07/05/25 07:22) JOINT PAIN omeprazole Adverse Reaction (Intermediate, Verified 07/05/25 07:22) Headache pantoprazole Adverse Reaction (Intermediate, Verified 07/05/25 07:22) Headache HPI Comments Details: 07/05/25--Cindi is a 65-year-old female who is being evaluated for gross hematuria she was seen on 05/17/2025 for office cystoscopy there were some irregular findings on cystoscopy. 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 I have discussed with the patient. We will have her follow-up with nurse practitioner in 6 months. Results - CT scan on 05/01/25: No significant renal mass or bladder lesion observed. - Urine cytology: No evidence of high-grade urothelial carcinoma. 05/28/25--Cindi is a 64-year-old female who is being evaluated for gross hematuria she was last seen on 05/17/2025 for office cystoscopy there were some irregular findings on cystoscopy and plan is to proceed with cystoscopy bladder biopsies. The patient had some questions, and I have reviewed that procedure will be done as a outpatient day procedure, the anesthesiologist we will review the anesthetic needed for safety in performing the procedure. The patient may require a Pacheco catheter after the procedure. No driving for 24 hours after anesthesia. If she requires a catheter, she will need to be out of work until the catheter is removed. Results:-urine cytology 05/17/2025--negative for malignant cells 05/17/25-- Here for cysto. Cystoscopy findings: erythematous flattened lesions History of Present Illness - The patient is a 64-year-old female presenting with gross hematuria. - The hematuria was first noticed in February, per patient - A CT scan performed on 05/01/25 showed no significant renal mass or bladder lesion. - Urine cytology reported no evidence of high-grade urothelial carcinoma. - The patient has a history of allergies to Bactrim, Cipro, and penicillin. - A hepatic cyst and renal cyst were identified, with the hepatic cyst measuring 1.3 cm. Results - CT scan on 05/01/25: No significant renal mass or bladder lesion observed. - Urine cytology: No evidence of high-grade urothelial carcinoma. Plan cystoscopy TURBT, bladder biopsies 03/20/25--Cindi is a very pleasant 64-year-old female patient of Dr. Alas. She has a past medical history of anxiety, hypercholesteremia, cataract of the left eye, anemia, GERD, nicotine dependence, hypothyroidism, and vitamin B12 deficiency. She presents to the office today as a new patient for gross hematuria. In discussion with the patient today she reports a longstanding history of nicotine dependence since the age of [age] years old. She smokes approximately 1 pack of cigarettes per day. She reports episode of gross hematuria in January however reports this to be a solitary event and has since subsided. In office urinalysis results reviewed with the patient today. Microscopic hematuria noted. We discussed potential causes of gross hematuria as well as microscopic hematuria. We discussed reasons for blood in the urine may include but are not limited to kidney stones, cancer in the urinary tract, kidney stone disease or inflammatory conditions of the urinary tract. I have discussed workup to include cystoscopy evaluation. She otherwise denies urinary urgency, urinary frequency, incontinence, nocturia, dysuria, foul smelling urine, changes to urinary stream, flank pain, fever, and or chills. She is happy with her current voiding parameters. [facility] Medical History Generalized anxiety disorder Hypercholesterolemia Colonoscopy refused Cataract, left eye Anemia GERD (gastroesophageal reflux disease) Tobacco abuse Hypothyroid Vitamin B12 deficiency Surgical History Hx of right cataract extraction Hx of cholecystectomy History of eye surgery Family History Father Hypertension CVD (cardiovascular disease) Bladder cancer Mother CVD (cardiovascular disease) Hypertension Lymphoma Maternal Grandmother Uterine cancer Breast cancer Maternal Aunt Ovarian cancer Sister CVD (cardiovascular disease) Social History Housing: Apartment Are you a primary residential caregiver to a significant other at home: No Do you presently have visiting nurse or other home services: No Alcohol intake: former Patient Tobacco Use Status: Current everyday Tobacco user Tobacco use type: Cigarette Cigarette Packs Per Day: 1 Cigarettes Per Day: 20.0 Years Smoked: less than half pack per day 12/2020, pack a day 12/2021 e-Cigarette/Vaping Use: Never Used Second Hand Smoke Exposure: No service: No Current occupational status: employed 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 /[employer] Cognitive needs: No Hearing needs: No Vision needs: Yes (Glasses) Review of Systems Const All systems reviewed & are unremarkable except as noted in HPI and below Reports no additional complaints Eyes Reports no additional complaints ENT Reports no additional complaints Card Reports no additional complaints Resp Reports no additional complaints GI Reports no additional complaints Reports as per HPI Musc Reports no additional complaints Skin/Breast Reports system reviewed and no additional complaints, except as documented Neuro Reports no additional complaints Psych Reports no additional complaints Endo Reports no additional complaints Prakash/Lymph Reports no additional complaints Aller/Immun Reports no additional complaints Telehealth Telehealth Telehealth Platform: [facility] Location of provider rendering services: practice address Location of patient: address on file Patient Identification confirmed using: Name, : Yes Telehealth method: video Patient verbally consented to treatment: Yes Patient verbally consented to billing insurance company: Yes Patient informed of any privacy concerns related to visit: Yes Results Reviewed Results Reviewed: Collected: 06/05/25 Location: [facility] Received: 06/05/25 Diagnosis Bladder, left posterior wall, biopsy: -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 -No muscularis propria present. Clinical History Bladder lesion Microscopic Description Microscopic sections reviewed. Immunostains show the urothelium has few positive CK20 cells, weak HER2, and focally increased Ki-67 with predominantly basal pattern, supporting a benign reactive diagnosis. Controls stain appropriately. Material Received Bladder lesion left posterior bladder wall Gross Description Received in formalin, on Telfa, labeled ?bladder lesion left posterior bladder wall? are 4 fragments of pink white soft tissue measuring 0.2-0.6 cm in greatest dimension which are wrapped in lens paper and entirely submitted for microscopic examination, 4 pieces in cassette labeled A. ([facility]) This case was reviewed intradepartmentally. Special studies ordered and performed: Immunostains for CK20, HER2 and Ki-67 on A1. Copies To Brandon Reynolds MD [facility] [address] [place] [address] [address] [place] [address] [email or web address] Dominik Alas MD [facility] [place] [place] [address] Patient: Cindi Estrada Age/Sex: 64/F MR#: [id number] Page 1 of 2 Date of Service: 05/01/25 CLINICAL HISTORY: R31.0 - Gross hematuria CT abdomen and pelvis with and without contrast Comparison: None provided Findings: No consolidation or effusion. Unremarkable gallbladder and solid organs. A 1.3 cm right hepatic cyst. No urolithiasis. No hydronephrosis. A 1.5 cm left kidney lower pole cysts. Delayed images demonstrate no filling defect within the renal pelvises or ureters. No urinary bladder calculi. Posterior urinary bladder diverticulum is present. No bowel obstruction, pneumoperitoneum, or pneumatosis. No acute fracture. Pelvic structures are intact. Appendix is not definitely visualized. IMPRESSION: No acute findings. No hydronephrosis, nephrolithiasis or filling defect /mass lesion within the collecting system. No urinary bladder calculus. Posterior urinary bladder diverticulum. Assessment & Plan Assessment & Plan (1) Hematuria: Code(s): R31.9 - Hematuria, unspecified Category: Medical Qualifiers: Hematuria type: unspecified type Qualified Code(s): R31.9 - Hematuria, unspecified (2) Tobacco abuse: Comment: 08/2022 stopped - continuing to smoke 02/2023 Code(s): Z72.0 - Tobacco use Category: Medical (3) Cystitis: Code(s): N30.90 - Cystitis, unspecified without hematuria Category: Medical Plan Discussed nicotine cessation. Follow-up with nurse practitioner in 6 months, monitor urine, repeat urine cytology Patient Instructions: The patient had an opportunity to ask questions regarding treatment plan. The patient expressed understanding and agreement with the above treatment plan. The patient is aware they should contact our office by phone for worsening of their current condition or the appearance of new symptoms. Compliance is encouraged with any medications and followup testing that is ordered. It is a privilege to be allowed the opportunity to participate in the urologic care of your patient. If you have any questions or concerns regarding treatment for the above conditions please do not hesitate to contact me. The office telephone contact is [phone]. This note is constructed in part using voice recognition software. While every effort has been made to ensure accuracy sofa inspector errors may have been included. Yours sincerely, Brandon Reynolds MD Coding Level of Care Code Tele Est Pt Level 3 (98686) Complex EM visit Add On G2211 Diagnoses Hematuria, unspecified type R31.9 Hematuria type: unspecified type Tobacco abuse Z72.0 Cystitis N30.90
--- OUTSIDE RECORDS SUMMARY | 2025-07-05 07:23 | XMS_ITS | Patient Health Record ---
Author Organization [facility] Address [address] [place] [address] Care Team Providers Care Rn Hematology Name Role Phone Dominik Alas MD Primary Care Provider Piero Hayward [phone] Allergies Allergen (clinical drug ingredient) Drug/Non Drug [...] Problem Status W/U Status Risk Notes Problem [id number] Colon cancer screening (Z12.11) Active confirmed Problem [id number] Abnormal CT scan , colon (R93.3) Active confirmed Problem [id number] Gastroesophageal reflux disease, unspecified whether esophagitis present (K21.9) Active confirmed Plan Of Treatment Future Test Test Name Order Date UPPER GI ENDOSCOPY 04/21/2023 COLONOSCOPY 04/21/2023 Insurance Providers Payer Name Payer Address Payer Phone Subscriber Number Group Number Insured Name Patient Relationship to Insured Coverage Start Date Coverage End Date [facility] [address] [place] [id number] EDDIE MERIDA Self - patient is the insured Medical (General) History Medical History History ICD Code Hypothyroidism SVT's Anxiety Denies NM,DM,CVA,Lung disease,renal dise ase Bowel obstruction at [facility]-treated with a NG tube, no surgery--the patient reports that she was told that this was due to adhesions Acute onset of symptoms of a bdominal pain, vomiting, and diarrhea resulting in a hospitalization from 04/07-04/10/23. Her CT at [facility] described a pancolitis and possible appendicitis, although surgical consultation did not think she had appendicitis and she did not undergo surgery. She did well with a course of IV and subsequent oral antibiotics with resolution of her symptoms Surgical History Surgery Date(Month/Year) Lap. CCY-08/2022 Eye sugeries as a child Glaucoma surgery 2018
== END 2025-07-05 07:53 | disposition home or self-care (01) ==
LOC: HO.HUSH 07:20
PROVIDERS: PCP Internal Medicine; Visit Provider Urology
DX: R31.9 Hematuria, unspecified (principal); Z72.0 Tobacco use; N30.90 Cystitis, unspecified without hematuria
CPT/HCPCS: 98005

== ENCOUNTER 2025-07-20 08:47 | Outpatient (AMB) | payer OTHER, SELFPAY ==
--- OUTSIDE RECORDS SUMMARY | 2025-07-19 10:20 | XMS_ITS ---
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 Primary Care Provider Ana Browne Unavailable [phone] Allergies Allergen (clinical drug ingredient) Drug/Non Drug Allergy documented on EMR Reaction Allergy Type Onset Date Status sulfamethoxazole / trimethoprim Bactrim Unknown Drug Allergy Active ciprofloxacin Ciprofloxacin Unknown Drug Allergy Active lisinopril Lisinopril Unknown Drug Allergy Activ e omeprazole Omeprazole Headache Drug Allergy Activ e pantoprazole Pantoprazole Headache Drug Allergy A ctive Penicillin Hives Drug Allergy Active Results Component Value Reference Range Notes Urinalysis Reviewed date:07/19/2025 03:29:44 PM Interpretation: Performing Lab: Notes/Report: PH 5.0 PROTEIN Neg GLUCOSE Neg BLOOD Moderate REASON FOR VISIT Annual MASH TUB COOKER Physical, Annual MASH TUB COOKER Physical 60-85+ Medications Medication SIG (Take, Route, Frequency, Duration) Notes Start Date End Date Status Iron Active Folic Acid Active Metoprolol Succinate ER 25 MG Oral; Duration: 30 Days Acti ve Levothyroxine Sodium 88 MCG Oral; Duration: 30 Days Acti ve LORazepam 0.5 MG Oral; Duration: 30 Days Active Vitamin B12 Active Estradiol Vaginal Cream 0.01% 1 Gram to the affected area Vaginal/Vulva Twice a week; Duration: 90 Days 07/19/2025 Active Vitamin D3 Active metroNIDAZOLE 0.75 % 1 applicatorful at bedtime Vaginal ONCE A NIGHT; Duration: 5 days 07/19/2025 Active Social History Tobacco Use: Social History Observation Description Date Details (start date - stop date) Current Smoker NA - NA Sexual History Question Answer Notes Had sex in the past 12 months (vaginal, oral, or anal)? No Have you ever had a Sexually transmitted disease ? No AUDIT-C (Standard) Question Answer Notes Did you have a drink contain ing alcohol in the past year? Yes How often did you have a dri nk containing alcohol in the past year? 2 to 4 times a month (2 points) How many drinks did you have on a typical day when you were drinking in the past year? 1 or 2 drinks (0 point) How often did you have six o r more drinks on one occasion in the past year? Never (0 point) Points 2 Interpretation Negative Tobacco Control (Standard) Question Answer Notes Tobacco use: Current smoker How often do you smoke cigarettes? Every day How many cigarettes a day do you smoke? 31 or mo re How soon after you wake up d o you smoke your first cigarette? 6-30 minutes Additional Findings: Tobacco user Heavy cigarett e smoker (20-39 cigs/day) Problems Problem Type SNOMED Code ICD Code Onset Dates Problem Status W/U Status Risk Notes Problem Osteoarthritis (147011395) Unspecified osteoarthritis, unspecified site (M19.90) Active confirmed Problem Postmenopausal atrophic vaginitis (80136127) Postmenopausal atrophic vaginitis (N95.2) Active confirmed Problem Subacute and chronic vaginitis (N76.1) Active confirmed Vital Signs Height 62 in 07/19/2025 Weight 95 lbs 07/19/2025 BMI 17.37 kg/m2 07/19/2025 Blood pressure systolic 116 mm Hg 07/19/20 25 Blood pressure diastolic 78 mm Hg 025 Temperature 97.7 degrees Fahrenheit 07/19/20 25 Encounters Encounter Location Date Provider Diagnosis [address] [address] 07/19/2025 Ana Gagnon Encounter for screening for human papillomavirus (HPV) Z11.51 ; Encounter for gynecological examination (general) (routine) with abnormal findings Z01.411 ; Encounter for screening mammogram for malignant neoplasm of breast Z12.31 ; Postmenopausal atrophic vaginitis N95.2 and Subacute and chronic vaginitis N76.1 Assessments Encounter Date Diagnosis (ICD Code) Assessment Notes Treatment Notes Treatment Clinical Notes Section Notes 07/19/2025 Encounter for screening for human papillomavirus (HPV) (ICD-10 - Z11.51) HPV TYPING WAS ORDERED WITH PAP TEST. 07/19/2025 Encounter for gynecological examination (general) (routine) with abnormal findings (ICD-10 - Z01.411) PAP TEST WAS OBTAINED. 07/19/2025 Encounter for screening mammogram for malignant neoplasm of breast (ICD-10 - Z12.31) REGULAR MAMMOGRAMS AND SBE'S WERE RECOMMENDED. 07/19/2025 Postmenopausal atrophic vaginitis (ICD-10 - N95.2) DISCUSSED VAGINAL ATROPHY AND INCREASED RISK OF BV AND YEAST DUE TO THIS. RECOMMENDED INTRAVAGINAL ESTROGEN AND DISCUSSED ITS BENEFITS AND RISKS. PAT AGREED TO TRY. RX AND INSTRUCTIONS FOR ESTRADIOL CREAM WERE GIVEN. 07/19/2025 Subacute and chronic vaginitis (ICD-10 - N76.1) DISCUSSED FINDINGS, DX AND TX OPTIONS. DISCUSSED BV AND SYMPTOMS ASSOCIATED WITH THIS. EMPHASIZED ITS RECURRENT NATURE. RX AND INSTRUCTIONS FOR METRONIDAZOLE GEL WERE GIVEN. CALL IF BV KEEPS RECURRING. WILL TX WITH ORAL FLAGYL AND BORIC ACID AND WILL ORDER PELVIC ULTRASOUND TO MAKE SURE FALLOPIAN TUBES ARE EVALUATED. Plan Of Treatment Medication Medication Name Sig Start Date Stop Date Notes Estradiol Vaginal Cream 0.01% 1 Gram to the affected area Vaginal/Vulva Twice a week; Duration: 90 Days 07/19/2025 metroNIDAZOLE 0.75 % 1 applicatorful at bedtime Vaginal ONCE A NIGHT; Duration: 5 days 07/19/2025 Treatment Notes Assessment Notes Encounter for screening for human papillomavirus (HPV) HPV TYPING WAS ORDERED WITH PAP TEST. Encounter for gynecological examination (general) (routine) with abnormal findings PAP TEST WAS OBTAINED. Encounter for screening mamm ogram for malignant neoplasm of breast REGULAR MAMMOGRAMS AND SBE'S WERE RECOMMENDED. Postmenopausal atrophic vaginitis DISCUSSED VAGINAL ATROPHY AND INCREASED RISK OF BV AND YEAST DUE TO THIS. RECOMMENDED INTRAVAGINAL ESTROGEN AND DISCUSSED ITS BENEFITS AND RISKS. PAT AGREED TO TRY. RX AND INSTRUCTIONS FOR ESTRADIOL CREAM WERE GIVEN. Subacute and chronic vaginitis DISCUSSED FINDINGS, DX AND TX OPTIONS. DISCUSSED BV AND SYMPTOMS ASSOCIATED WITH THIS. EMPHASIZED ITS RECURRENT NATURE. RX AND INSTRUCTIONS FOR METRONIDAZOLE GEL WERE GIVEN. CALL IF BV KEEPS RECURRING. WILL TX WITH ORAL FLAGYL AND BORIC ACID AND WILL ORDER PELVIC ULTRASOUND TO MAKE SURE FALLOPIAN TUBES ARE EVALUATED. Pending Test Test Name Order Date MAMMOGRAM, SCREENING 07/19/2025 MM Digital Mammo Screening 07/19/[id number]-Nup IGP No Culture 30 Plus 2024 Next Appt Details Follow Up: 1 Year, Reason: Provider Name:Ana arambula, 07/24/2026 02:40:00 PM, [address], [address], [place], [address], Progress Notes * KORY MERIDAADOB:1960 ( 65 yo F)Acc No.[id number]:07/19/2025 Progress Note Patient: EDDIE PINO Appointment Provider: Daniel Gagnon M.D. :1960 A ge:65 Y S ex:Female Date:07/19/2025 Address:[address] [place], [place] [id number] Pcp:ADAN MATTHEWS M.D. Subjective: * Chief Complaints: * A nnual MASH TUB COOKER PhysicalAnnual MASH TUB COOKER Physical 60-85+ * HPI: N ew/Follow-up Patient Consult: MARIAM IS NEW TO OUR OFFICE. PAT C/O VAGINAL DISCHARGE OFF AND ON FOR MANY MONTHS. SHE DENIES BURNING OR ITCHING. SHE ENTERED MENOPAUSE IN HER 50'S. SHE HAS NO HX OF PMB. SHE IS A . SHE HAS HAD ANOTHER RELATIONSHIP FOR 6 YEARS BUT HAS NOT BEEN SEXUALLY ACTIVE FOR 4 YEARS. HER PARTNER IS NOW IN A ASSISTED. HE IS SIGNIFICANTLY OLDER THAN HER. SHE HAD ABNORMAL PAP TESTS IN HER 40'S AND HAS HAD COLPOSCOPIES WITH REPORTEDLY NEGATIVE FINDINGS.? HER LAST PAP TEST WAS DONE ABOUT 10 YEARS AGO. HER LAST MAMMOGRAM DONE IN MAY 2024 SHOWED DENSE BREASTS AND WAS NORMAL. SHE HAS NO FAMILY HX OF BREAST, OVARIAN, COLON OR UTERINE CA. SHE HAS NOT HAD A BONE DENSITY STUDY DONE NOR HAS SHE HAD A COLONOSCOPY DONE YET. SHE SAYS SHE HAS HAD MICROSCOPIC HEMATURIA FOR YEARS AND WORK UP DONE BY A UROLOGIST WAS NEGATIVE. A nnual: Patient presents for annual exam, ages 60-85, postmenopausal. General Health Maintenance: C urrent breast complaints: n o breast pain, mass, discharge, or skin changes U rinary problems: p atient reports no urinary health problems or bowel health problems C alcium intake: t akes adequate calcium via diet and supplementation S ignificant MASH TUB COOKER problems: n o significant overcoil stepper symptoms or problems * ROS: g eneral: no c hest pain. n o p alpitations. n o h eadache. n o c ough. n o s hortness of breath. n o f ever. n o u nexplained weight loss. n o n ausea/vomiting. n o c hange in bowel movements. n o blood in stool. n o g enitourinary complaints. n o s kin complaints. ? 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 S exual activity n ot currently sexually active. M ammogram: , 50-75% density. A bnormal Pap Smear: Y es. L MP and menses M vonnie. H istory of STD's: n one. B irth Control: a bstinence. M enarche 1 4. C olonoscopy n o. * OB History: T otal pregnancies 3 . T otal living children 3 . N VD 3 . * Surgical History: C holecystectomy Eye Sugeries in Childhood Biopsy * Hospitalization/Major Diagno stic Procedure: 3 Vaginal Deliveries Bowel Obstruction ad Infection 03/2023See Surgical Hx * Family History: M other: , T Cell Carcinoma. F ather: , Bladder Cancer. Niece: Renal Cell Carcinoma Denies any family hx of breast, ovarian or colon cancer. * Social History: T obacco Use: T obacco Control (Standard) T obacco use: C urrent smoker H ow often do you smoke cigarettes? E very day H ow many cigarettes a day do you smoke? 3 1 or more H ow soon after you wake up do you smoke your first cigarette? 6 -30 minutes A dditional Findings: Tobacco user H eavy cigarette smoker (20-39 cigs/day) S exual History: S exual History H ad sex in the past 12 months (vaginal, oral, or anal)? N o H ave you ever had a Sexually transmitted disease? N o Details of Sexual History A re you sexually active? N o D rugs/Alcohol: D rugs H ave you used drugs other than those for medical reasons in the past 12 months? N o M iscellaneous: C hildren: yes, 3. Exercise: no. Home smoke detector use: yes. Marital status: . Natural support system: yes. 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 Sexually active: no. D rug/Alcohol: A HILTON-C (Standard) D id you have a drink containing alcohol in the past year? Y es H ow often did you have a drink containing alcohol in the past year? 2 to 4 times a month (2 points) H ow many drinks did you have on a typical day when you were drinking in the past year? 1 or 2 drinks (0 point) H ow often did you have six or more drinks on one occasion in the past year? N ever (0 point) P oints 2 I nterpretation N egative * Medications: T akingVitamin D3 Vitamin B12 Folic Acid Iron Levothyroxine Sodium 88 MCG Tablet Oral Metoprolol Succinate ER 25 MG Tablet Extended Release 24 Hour Oral LORazepam 0.5 MG Tablet Oral Medication List reviewed and reconciled with the patientTaking Vitamin D3 Taking Vitamin B12 Taking Folic Acid Taking Iron Taking Levothyroxine Sodium 88 MCG Tablet Oral Taking Metoprolol Succinate ER 25 MG Tablet Extended Release 24 Hour Oral Taking LORazepam 0.5 MG Tablet Oral Medication List reviewed and reconciled with the patient * Allergies: B actrim: AllergyCiprofloxacin: AllergyLisinopril: AllergyPenicillin: Hives - AllergyOmeprazole: Headache - AllergyPantoprazole: Headache - Allergyno[Allergies Verified] Objective: * Vitals: H t: 62 in, Wt:95lbs, BMI:17.37Index, BP:116/78mm Hg, Temp:97.7F. * Examination: G eneral Exam: CONSTITUTIONAL: G eneral Appearance: a lert, in no acute distress, normal, well nourished NECK/THYROID: I nspection/Palpation: n ormal T hyroid: n ormal size and shape RESPIRATORY: A uscultation: clear to auscultation bilaterally, Respiratory Effort: normal. CARDIOVASCULAR: A uscultation: regular rate and rhythm.? BREAST, Right: I nspection/Palpation: n o discharge, no masses present, no nipple retraction, no skin changes, no skin dimpling, no tenderness, no lymphadenopathy, no axillary mass, no axillary tenderness BREAST, Left: I nspection/Palpation: n o discharge, no masses present, no nipple retraction, no skin changes, no skin dimpling, no tenderness, no lymphadenopathy, no axillary mass, no axillary tenderness GASTROINTESTINAL: A bdomen: n o masses, nontender, nondistended L iver and Spleen: n ormal H ernias: n o hernias present, no inguinal adenopathy MUSCULOSKELETAL: I nspection/Palpation: n o clubbing, cyanosis, or edema SKIN: S kin: n ormal NEURO/PSYCH: O rientation: t fran , place, person M ood/Affect: n ormal G enitourinary: EXTERNAL GENITALIA: E xternal Genitalia: n ormal, no lesions VAGINA: V agina: a trophic vaginal tissue ERYTHEMATOUS WITH COPIOUS CREAM DISCHARGE, PH>4.5 BLADDER: B ladder: n o mass, nontender URETHRA: U rethra: n o erythema or lesions present CERVIX: C ervix: n o lesions, nontender UTERUS: U terus: n ontender, normal contour, normal mobility, normal size ADNEXA: A dnexa: n o masses, no tenderness ANUS AND PERINEUM: A nus/Perineum: v isually normal Assessment: * Assessment: 1. E ncounter for gynecological examination (general) (routine) with abnormal findings - Z01.411 (Primary) 2 . E ncounter for screening for human papillomavirus (HPV) - Z11.51 3. E ncounter for screening mammogram for malignant neoplasm of breast - Z12.31 4 . P ostmenopausal atrophic vaginitis - N95.2 5 . S ubacute and chronic vaginitis - N76.1 Plan: * Treatment: 2. E ncounter for screening for human papillomavirus (HPV) Notes: HPV TYPING WAS ORDERED WITH PAP TEST. 3. E ncounter for screening mammogram for malignant neoplasm of breast I maging: MM Digital Mammo Screening Notes: REGULAR MAMMOGRAMS AND SBE'S WERE RECOMMENDED. 4. P ostmenopausal atrophic vaginitis Start Estradiol Vaginal Cream Cream, 0.01%, 1 Gram to the affected area, Vaginal/Vulva, Twice a week, 90 Days, 42.5 Gram, Refills 4. Notes: DISCUSSED VAGINAL ATROPHY AND INCREASED RISK OF BV AND YEAST DUE TO THIS. RECOMMENDED INTRAVAGINAL ESTROGEN AND DISCUSSED ITS BENEFITS AND RISKS. PAT AGREED TO TRY. RX AND INSTRUCTIONS FOR ESTRADIOL CREAM WERE GIVEN. 5. S ubacute and chronic vaginitis Start metroNIDAZOLE Gel, 0.75 %, 1 applicatorful at bedtime, Vaginal, ONCE A NIGHT, 5 days, 45 Gram, Refills 5. Notes: DISCUSSED FINDINGS, DX AND TX OPTIONS. DISCUSSED BV AND SYMPTOMS ASSOCIATED WITH THIS. EMPHASIZED ITS RECURRENT NATURE. RX AND INSTRUCTIONS FOR METRONIDAZOLE GEL WERE GIVEN. CALL IF BV KEEPS RECURRING. WILL TX WITH ORAL FLAGYL AND BORIC ACID AND WILL ORDER PELVIC ULTRASOUND TO MAKE SURE FALLOPIAN TUBES ARE EVALUATED. * Imaging: * I maging: MAMMOGRAM, SCREENING * Labs: * L ab: Urinalysis (Collection Date & Time - 07/19/2025) Value Reference Range P H 5.0 * P ROTEIN Neg * G LUCOSE Neg * B LOOD Moderate * DONIEL Carrion 07/19/2025 02:47:14 PM EDT > Hx of Hematuria, Work Up with Urologist Negative ?Lab: [id number] IGP No Culture 30 Plus* Vaginal/Cervical, LMP: Shelia * Procedure Codes: 9 9459 PELVIC EXAMINATION * Preventive Medicine: YOUR PREVENTIVE WELLNESS PLAN: O steoporosis prevention C alcium, D, strength training. B reast Cancer Screening (Mammogram): a nnually. C ervical Cancer Screening (Pap Smear): q 3 years with HPV screen. C olorectal Cancer Screening: q 10 years. * Follow Up: 1 Year * Images: Billing Information: * Visit Code: [id number] Preventive Care Est Pt. Age 40-64. * Procedure Codes: 74819 PELVIC EXAMINATION. * Sign off status: Completed true * Appointment Provider: Daniel Gagnon M.D. Date: 0 07/19/2025 Generated for Zenaida obregon/Alessia/Ivonneitting on: 0 07/20/2025 09:28 AM EDT History and Physical Notes * HPI (History of Present Illness) Category Sub-Category Detail Notes Category Not es New/Follow-up Patient Consult PAT IS NEW TO OUR OFFICE. PAT C/O VAGINAL DISCHARGE OFF AND ON FOR MANY MONTHS. SHE DENIES BURNING OR ITCHING. SHE ENTERED MENOPAUSE IN HER 50'S. SHE HAS NO HX OF PMB. SHE IS A . SHE HAS HAD ANOTHER RELATIONSHIP FOR 6 YEARS BUT HAS NOT BEEN SEXUALLY ACTIVE FOR 4 YEARS. HER PARTNER IS NOW IN A ASSISTED. HE IS SIGNIFICANTLY OLDER THAN HER. SHE HAD ABNORMAL PAP TESTS IN HER 40'S AND HAS HAD COLPOSCOPIES WITH REPORTEDLY NEGATIVE FINDINGS. HER LAST PAP TEST WAS DONE ABOUT 10 YEARS AGO. HER LAST MAMMOGRAM DONE IN MAY 2024 SHOWED DENSE BREASTS AND WAS NORMAL. SHE HAS NO FAMILY HX OF BREAST, OVARIAN, COLON OR UTERINE CA. SHE HAS NOT HAD A BONE DENSITY STUDY DONE NOR HAS SHE HAD A COLONOSCOPY DONE YET. SHE SAYS SHE HAS HAD MICROSCOPIC HEMATURIA FOR YEARS AND WORK UP DONE BY A UROLOGIST WAS NEGATIVE. Annual General Health Maintenance: Current breast complaints:: no breast pain, mass, discharge, or skin changes Urinary problems:: patient r eports no urinary health problems or bowel health problems Calcium intake:: takes adequ ate calcium via diet and supplementation Significant MASH TUB COOKER problems:: n o significant overcoil stepper symptoms or problems Examination Category Sub-Category Detail Notes Category Not es General Exam CONSTITUTIONAL: General Appearan ce:: alert, in no acute distress, normal, well nourished NECK/THYROID: Inspection/Palpation:: normal Thyroid:: normal size and shape RESPIRATORY: Auscultation: clear to auscultation bilaterally, Respiratory Effort: normal CARDIOVASCULAR: Auscultation: regula r rate and rhythm GASTROINTESTINAL: Abdomen:: no masses, nontender , nondistended Liver and Spleen:: normal Hernias:: no hernias present, no inguina l adenopathy MUSCULOSKELETAL: Inspection/Palpation:: no clubb ing, cyanosis, or edema SKIN: Skin:: normal NEURO/PSYCH: Orientation:: time , place, pers on Mood/Affect:: normal BREAST, Right: Inspection/Palpation :: no discharge, no masses present, no nipple retraction, no skin changes, no skin dimpling, no tenderness, no lymphadenopathy, no axillary mass, no axillary tenderness BREAST, Left: Inspection/Palpation :: no discharge, no masses present, no nipple retraction, no skin changes, no skin dimpling, no tenderness, no lymphadenopathy, no axillary mass, no axillary tenderness Genitourinary EXTERNAL GENITALIA: External Genitalia:: nor mal, no lesions VAGINA: Vagina:: atrophic vaginal tissue ERYTHEMATOUS WITH COPIOUS CREAM DISCHARGE, PH>4.5 BLADDER: Bladder:: no mass, nontender URETHRA: Urethra:: no erythem a or lesions present CERVIX: Cervix:: no lesions, nontender UTERUS: Uterus:: nontender, normal contour, normal mobility, normal size ADNEXA: Adnexa:: no masses, no tenderness ANUS AND PERINEUM: Anus/Perineum:: visually norm al
[2025-07-20 08:50] VITALS: BP 98/58; BMI 17.9
--- NOTE | 2025-07-20 08:50 | MHC.PC.OV ---
Vital Signs 07/20/25 08:50 Height 5 ft 2 in Weight 98 lb BMI 17.9 BP 98/58 L Blood Pressure Location Lt brachial Position Sitting Intake Visit Reasons: Annual Exam Allergies sulfamethoxazole (From Bactrim) Allergy (Severe, Verified 07/20/25 08:50) upset stomach trimethoprim (From Bactrim) Allergy (Severe, Verified 07/20/25 08:50) upset stomach ciprofloxacin (From Cipro) Allergy (Intermediate, Verified 07/20/25 08:50) Nausea Penicillins (PENICILLINS) Allergy (Unknown, Verified 07/20/25 08:50) Swelling simvastatin (SIMVASTATIN) Allergy (Unknown, Verified 07/20/25 08:50) JOINT PAIN omeprazole Adverse Reaction (Intermediate, Verified 07/20/25 08:50) Headache pantoprazole Adverse Reaction (Intermediate, Verified 07/20/25 08:50) Headache Medication List - Last Reconciled 07/20/25 by Dominik Alas MD cholecalciferol (vitamin D3) 50 mcg PO DAILY cyanocobalamin (vitamin B-12) 1,000 mcg PO DAILY ferrous sulfate (Feosol) 325 mg PO DAILY folic acid 1 mg PO DAILY 90 days levothyroxine 88 mcg PO DAILY 90 days lorazepam (Ativan) 0.5 mg PO BID PRN metoprolol succinate ER 12.5 mg (1/2 x 25 mg) PO DAILY metronidazole 1% 1 appl topical BEDTIME Tobacco use date assessed: 04/16/25 Dental Screening Dental Screen Date: 04/16/25 [facility] Medical History Generalized anxiety disorder Hypercholesterolemia Colonoscopy refused Cataract, left eye Anemia GERD (gastroesophageal reflux disease) Tobacco abuse Hypothyroid Vitamin B12 deficiency Surgical History Hx of right cataract extraction Hx of cholecystectomy History of eye surgery Family History (Updated 07/20/25 @ 09:26 by Dominik Alas MD) Father Hypertension CVD (cardiovascular disease) Bladder cancer Mother CVD (cardiovascular disease) Hypertension Lymphoma Maternal Grandmother Uterine cancer Breast cancer Maternal Aunt Ovarian cancer Sister No problems noted. Social History (Updated 07/20/25 @ 09:26 by Dominik Alas MD) Housing: Apartment Are you a primary animal caretaker to a significant other at home: No Do you presently have visiting nurse or other home services: No Alcohol intake: current Alcohol intake frequency: does not drink Comment: once a month glass Patient Tobacco Use Status: Current everyday Tobacco user Tobacco use type: Cigarette Cigarette Packs Per Day: 1 Cigarettes Per Day: 20.0 Years Smoked: less than half pack per day 12/2020, pack a day 12/2021 e-Cigarette/Vaping Use: Never Used Second Hand Smoke Exposure: No service: No Current occupational status: employed 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 1. Little interest or pleasure in doing things: not at all 2. Feeling down, depressed, or hopeless: not at all 3. Trouble falling or staying asleep, or sleeping too much: several days 4. Feeling tired or having little energy: several days 5. Poor appetite or overeating: not at all 6. Feeling bad about yourself - or that you are a failure or have let yourself or your family down: not at all 7. Trouble concentrating on things, such as reading the newspaper or watching television: not at all 8. Moving or speaking so slowly that other people could have noticed. Or the opposite - being so fidgety or restless that you have been moving around a lot more than usual: not at all 9. Thoughts that you would be better off or of hurting yourself in some way: not at all Total score: 2 Depression Screening Interpretation: Positive Depression Screening Done: Yes Source: Developed by Drs. Piero Reyes, Millie Alvarado, Patrice Keita and colleagues, with an educational anila from [employer]. Thrive Questionnaire Date Thrive assessed: 04/14/25 I am a: Patient What is your living situation today?: I have a steady place to live Within the past 12 months, did the food you bought not last and you didn't have the money to get more?: Never true Within the past 12 months, did you worry whether your food would run out before you got money to buy more?: Never true Do you have trouble paying for medicines?: No Do you have trouble getting transportation to medical appointments?: No Do you have trouble paying your heating and electricity bill?: No Do you have trouble taking care of your child, family member or friend?: No Do you have trouble with day-to-day activities such as bathing, preparing meals, shopping, managing finances, etc.?: No Are you currently unemployed and looking for a job?: No Are you interested in more education?: No Please select the resources that you would like help with: None Currently or been in a relationship where the following occur: No concerns reported THRIVE Score: 0 AUDIT C Alcohol Use Questionnaire (AUDIT-C) 1. How often do you have a drink containing alcohol?: Never 3. How often do you have six or more drinks on one occasion?: Never Total Score: 0 VAL-7 AMB Questionnaire VAL-7 Date VAL - 7 assessed: 01/09/25 Source: Developed by Drs. Piero Reyes, Millie Alvarado, Patrice Keita and colleagues, with an educational anila from [employer]. Review of Systems Const Denies poor appetite and Denies weakness Eyes Denies no additional complaints ENT Reports Normal hearing present, Denies dizziness, Denies nasal congestion, Denies tinnitus and Denies sore throat Card Denies chest pain, Denies syncope, Denies rapid heart rate and Denies dyspnea Resp Denies cough and Denies dyspnea GI Denies change in stool character, Reports constipation, Denies diarrhea, Denies nausea and Denies vomiting Denies urinary frequency, Denies difficulty voiding and Denies dysuria Neuro Reports Normal hearing present, Denies confusion, Denies dizziness, Denies syncope and Denies weakness Psych Denies confusion Physical exam (Primary Care) Vital Signs: Last Vital Signs BP 98/58 L 07/20/25 08:50 BMI result Body Mass Index 17.9 Tobacco/Smoking Status: Tobacco use Status Tobacco use date assessed 04/16/25 07/20/25 08:55 Patient Tobacco Use Status Current everyday Tobacco 07/20/25 09:26 Tobacco use type Cigarette 07/20/25 09:26 e-Cigarette/Vaping Use Never Used 07/20/25 09:26 PHQ-9: PHQ-9 Score PHQ-9: Total score 2 07/20/25 09:42 Depression Screening Interpretation: Positive Thrive Assessment: Date of Thrive Assessment Date Thrive assessed 04/14/25 07/20/25 08:55 Currently or been in a relationship where the following occur: No concerns reported Const General: alert and awake; No confusion Orientation/consciousness: No confusion HENMT Head: Yes normocephalic Ears: external ears normal and TM's normal bilaterally Face and sinus: Yes normal facial exam Mouth: moist mucous membranes Throat: Yes tonsils normal Eyes Conjunctivae: conjunctivae normal Pupils: Equal, round and reactive pupils present and Pupil accommodation reflex normal Direct Ophthalmoscopy: normal light reflex Neck Neck: No lymphadenopathy Thyroid: Thyroid normal Chest Chest palpation & inspection: normal inspection of the chest Resp Effort & Inspection: normal respiratory effort and no audible wheezes Auscultation: clear to auscultation bilaterally, no crackles, no wheezes and lung sounds not diminished Cardio Rate: regular rate Rhythm: regular rhythm Peripheral pulses: radial pulses present and dorsalis pedis present GI Palpation (GI): no masses Auscultation: normal bowel sounds and normoactive bowel sounds Rectal Exam - Female: deferred Skin General skin exam: no rashes or lesions noted Rashes: no rashes Neuro General: deep tendon reflexes 2+ bilaterally and No confusion Cranial nerves: Yes Equal, round and reactive pupils present, Yes Midline tongue present, Yes Normal hearing present and Yes Ability to bilaterally elevate shoulders present Cognition (Neuro): normal cognition Gait exam (Neuro): Normal gait present Motor exam (neuro): 5/5 motor strength present throughout Deep tendon reflexes (DTR's): Right brachioradialis reflex intensity grade: 2+, Left brachioradialis reflex intensity grade: 2+, Right patellar reflex intensity grade: 2+ and Left patellar reflex intensity grade: 2+ Extrem General: No edema Immunizations Tenivac (PF) 5 Lf unit-2 Lf unit/0.5 mL intramuscular suspension Performing Provider: Dominik Alas MD Performing Location: [facility] [place] [facility] Administered by: Chica Manriquez CMA on 07/20/25 09:42 Dose Route Admin Location Dispensed Lot Number Expiration Date [facility] Osteologist 0.5 mL IM Left Deltoid 0.5 mL [id number] 02/06/27 72290-405-79 [employer] Total Dispensed Waste 0.5 mL 0 % VIS Given Date VIS Provided VIS Publication Date 07/20/25 Single Vaccine 21 Eligibility Eligibility Date Funding Source Not [facility] Eligible 07/20/25 Private Coding Level of Care Code Est Pt Prev Care 40-64y(23416) Diagnoses Annual physical exam Z00.00 Tobacco abuse Z72.0 Cystitis N30.90 Gastroesophageal reflux disease without esophagitis K21.9 Esophagitis presence: without esophagitis Acquired hypothyroidism E03.9 Hypothyroidism type: acquired Hypercholesterolemia E78.00 Generalized anxiety disorder F41.1 Assessment & Plan Assessment & Plan (1) Annual physical exam: Code(s): Z00.00 - Encounter for general adult medical examination without abnormal findings Category: Medical Plan: Patient is advised to eat healthy, keep well hydrated, keep active and have adequate sleep. (2) Tobacco abuse: Comment: 08/2022 stopped - continuing to smoke 02/2023 Code(s): Z72.0 - Tobacco use Category: Medical Plan: Patient has been strongly advised to stop smoking (3) Cystitis: Code(s): N30.90 - Cystitis, unspecified without hematuria Category: Medical Plan: Patient had a cystoscopy with bladder biopsy under urology and on surveillance (4) GERD (gastroesophageal reflux disease): Code(s): K21.9 - Gastro-esophageal reflux disease without esophagitis Category: Medical Qualifiers: Esophagitis presence: without esophagitis Qualified Code(s): K21.9 - Gastro-esophageal reflux disease without esophagitis Plan: Avoid the foods that causes that usually spicy foods, tomato products, juices, coffee, soda and foods that your sensitive to. After eating do not lie down, allow 3-4 hours before in lie down. And keep the head of bed above 30 degrees to avoid the acid from going up. (5) Hypothyroid: Code(s): E03.9 - Hypothyroidism, unspecified Category: Medical Qualifiers: Hypothyroidism type: acquired Qualified Code(s): E03.9 - Hypothyroidism, unspecified Plan: Continue with thyroid medication (6) Hypercholesterolemia: Code(s): E78.00 - Pure hypercholesterolemia, unspecified Category: Medical Plan: Avoid fried foods, chicken skin, eggs, butter margarine, pastries and meat. Be it pork or beef they have a lot of cholesterol LDL goal of less than 130 and triglyceride of less than 150 (7) Generalized anxiety disorder: Comment: Declined referral for counseling Code(s): F41.1 - Generalized anxiety disorder Category: Medical Plan: Continue with present medication Plan History of Present Illness The patient is a 65-year-old female presenting for a follow-up visit and wellness examination. She has a history of hypothyroidism and has noted recent weight gain. She is a smoker, which has been discussed in terms of cessation. The patient also has a history of gastroesophageal reflux disease and hypercholesterolemia. Her last cholesterol test in January 2025 showed an LDL of 130 mg/dL. She has been diagnosed with generalized anxiety disorder and has a history of small bowel obstruction due to adhesions. The patient has a history of supraventricular tachycardia and was last seen for a physical exam in April 2025. Her mammogram is due, and she declined a colonoscopy in 2020. She followed up with urology for cystitis and was evaluated for gross hematuria. A cystoscopy with bladder biopsy showed reactive urothelium with chronic inflammation. Blood work in May 2025 noted anemia, but normal blood count and electrolytes. Renal function was normal, blood sugar was elevated at 101 mg/dL, and liver function was fine. Thyroid function was normal. Health Maintenance - Mammogram is due - Colonoscopy was declined in 2020 - Nicotine cessation discussed Social History - Smoking: Patient is a smoker, cessation discussed Review of Systems - General: Reports weight gain - Genitourinary: Reports gross hematuria Physical Exam General: Cooperative, healthy appearing, comfortable, no acute distress and well developed Orientation: Patient oriented x3 Limitations: No limitations Head: Normal to inspection Ears: Hearing grossly normal bilaterally Nose: Normal external nose present Face and sinus: Normal facial exam Eyes: Appearance normal, both eyes and all related structures Neck: Normal visual inspection and Yes full ROM Respiratory: Normal respiratory effort and able to speak in complete sentences. Clear to auscultation bilaterally Cardiovascular: Regular rate and rhythm. Normal S1 and S2 GI: Normal to inspection. Soft to palpation and nontender Skin: No rashes or lesions noted Neuro: Patient oriented x3 Extremities: Normal to inspection Results - Labs: Anemia noted in May 2025, normal blood count, normal electrolytes, elevated blood sugar at 101 mg/dL, normal renal and liver function, normal thyroid function - Imaging: Cystoscopy with bladder biopsy showed reactive urothelium with chronic inflammation Plan Patient was informed and verbally consented to the use of an ambient scribe for clinic note documentation during this visit. 1. Hypothyroidism The patient will continue with her current thyroid medication as her thyroid function is normal. 2. Gastroesophageal Reflux Disease (Gerd) The patient is advised to continue with her current reflux management plan. 3. Hypercholesterolemia The cholesterol management plan includes maintaining an LDL goal of less than 130 mg/dL and triglycerides of less than 150 mg/dL. 4. Generalized Anxiety Disorder The management of anxiety disorder was not specifically discussed in this visit. 5. Supraventricular Tachycardia (Svt) The patient is under surveillance for SVT, and no new interventions were discussed. 6. Cystitis The patient followed up with urology for cystitis and is under surveillance post-cystoscopy. 7. Anemia Anemia was noted in recent blood work, but no specific management plan was discussed. Discussion Notes During the visit, we discussed the importance of nicotine cessation and the patient was advised to continue with her current medications for hypothyroidism and GERD. We also reviewed her cholesterol management goals and the need for a mammogram. Patient Instructions - Stop smoking as advised. - Continue taking thyroid and reflux medications as prescribed. - Schedule a mammogram as it is due. Orders: Orders Complete Blood Count Auto Diff Today E03.9 - Hypothyroidism, unspecified Vitamin B12 and Folate Today E03.9 - Hypothyroidism, unspecified Td Immunization Today Z23 - Encounter for immunization Comprehensive Met. Panel Today E03.9 - Hypothyroidism, unspecified Free T4 (Free Thyroxine) Today E03.9 - Hypothyroidism, unspecified UA w Microscopic Today E03.9 - Hypothyroidism, unspecified Thyroid Stimulating Hormone Today E03.9 - Hypothyroidism, unspecified Magnesium Today E03.9 - Hypothyroidism, unspecified Medications: Refilled lorazepam (Ativan) 0.5 mg PO BID PRN 60 tabs 2RF anxiety F32.9 - Major depressive disorder, single episode, unspecified, F41.9 - Anxiety disorder, unspecified folic acid 1 mg PO DAILY 90 tabs 3RF 90 days E53.8 - Deficiency of other specified B group vitamins
--- OUTSIDE RECORDS SUMMARY | 2025-07-20 09:28 | XMS_ITS | Patient Health Record ---
Author Organization [facility] Address [address] [facility] [address] [place] [address] Care Team Providers Care Bacon Skinner Name Role Phone ADAN MATTHEWS M.D. Primary Care Provider Ana Browne Unavailable [phone] Allergies Allergen (clinical drug ingredient) Drug/Non Drug [...] 5.0 PROTEIN Neg GLUCOSE Neg BLOOD Moderate Reason For Referral No Information Medications Medication SIG (Take, Route, Frequency, Duration) Notes Start Date End Date Status Iron Active Folic Acid Active Metoprolol Succinate ER 25 MG Oral; Duration: 30 Days Acti ve Levothyroxine Sodium 88 MCG Oral; Duration: 30 Days Acti ve Vitamin B12 Active Estradiol Vaginal Cream 0.01% 1 Gram to the affected area Vaginal/Vulva Twice a week; Duration: 90 Days 07/19/2025 Active Vitamin D3 Active metroNIDAZOLE 0.75 % 1 applicatorful at bedtime Vaginal ONCE A NIGHT; Duration: 5 days 07/19/2025 Active LORazepam 0.5 MG Oral; Duration: 30 Days Active Social History Tobacco Use: Social History [...] Problem Status W/U Status Risk Notes Problem Postmenopausal atrophic vaginitis (44105530) Postmenopausal atrophic vaginitis (N95.2) Active confirmed Problem Osteoarthritis (149424782) Unspecified osteoarthritis, unspecified site (M19.90) Active confirmed Problem Subacute and chronic vaginitis (N76.1) Active confirmed Vital Signs Temperature 97.7 degrees Fahrenheit 07/19/2025 Blood pressure diastolic 78 mm Hg 07/19/2025 Height 62 in 07/19/2025 Blood pressure systolic 116 mm Hg 07/19/2025 Weight 95 lbs 07/19/2025 BMI 17.37 kg/m2 07/19/2025 Encounters Encounter Location Date Provider Diagnosis [address] [address] 07/19/2025 Ana Gagnon Encounter for screening for human papillomavirus (HPV) Z11.51 ; Encounter for gynecological examination (general) (routine) with abnormal findings Z01.411 ; Encounter for screening mammogram for malignant neoplasm of breast Z12.31 ; Postmenopausal atrophic vaginitis N95.2 and Subacute and chronic vaginitis N76.1 Assessments Encounter Date Diagnosis (ICD Code) Assessment Notes Treatment Notes Treatment Clinical Notes Section Notes 07/19/2025 Encounter for gynecological examination (general) (routine) with abnormal findings (ICD-10 - Z01.411) PAP TEST WAS OBTAINED. 07/19/2025 Encounter for screening for human papillomavirus (HPV) (ICD-10 - Z11.51) HPV TYPING WAS ORDERED WITH PAP TEST. 07/19/2025 Encounter for screening mammogram for malignant [...] FALLOPIAN TUBES ARE EVALUATED. Plan Of Treatment Pending Test Test Name Order Date MAMMOGRAM, SCREENING 07/19/2025 MM Digital Mammo Screening 07/19/[id number]-[id number] IGP No Culture 30 Plus 2024 Next Appt Details Provider Name:Ana arambula, 07/24/2026 02:40:00 PM, [address], [address], [place], [address], Insurance Providers Payer Name Payer Address Payer Phone Subscriber Number Group Number Insured Name Patient Relationship to Insured Coverage Start Date Coverage End Date [facility] (HEALTH DIRECT) [address] [place] [address] [id number] EDDIE MERIDA Self - patient is the insured Medical (General) History Medical History History ICD Code Disorder of thyroid, unspecified E07.9 Disease of gallbladder, unspecified K82. 9 Supraventricular tachycardia, unspecifie d I47.10 Unspecified osteoarthritis, unspecified site M19.90 Dense breasts, unspecified R92.30 Mammographic heterogeneous density, bila teral breasts R92.333 Other microscopic hematuria R31.29 Surgical History Surgery Date(Month/Year) Cholecystectomy Eye Sugeries in Childhood Biopsy Hospitalization History Reason Date(Month/Year) See Surgical Hx Bad Infection 03/2023 Bowel Obstruction 02/2023 3 Vaginal Deliveries
--- OUTSIDE RECORDS SUMMARY | 2025-07-20 09:29 | XMS_ITS | Patient Health Record ---
Author Organization [facility] Address [address] [place] [address] Care Team Providers Care Glaze Handler Name Role Phone Dominik Alas MD Primary Care Provider Piero Hayward [phone] Allergies Allergen (clinical drug ingredient) Drug/Non Drug [...] Problem Status W/U Status Risk Notes Problem [id number] Colon cancer screening (Z12.11) Active confirmed Problem 308911205 Abnormal CT scan , colon (R93.3) Active confirmed Problem 396749982 Gastroesophageal reflux disease, unspecified whether esophagitis present (K21.9) Active confirmed Plan Of Treatment Future Test Test Name Order Date UPPER GI ENDOSCOPY 04/21/2023 COLONOSCOPY 04/21/2023 Insurance Providers Payer Name Payer Address Payer Phone Subscriber Number Group Number Insured Name Patient Relationship to Insured Coverage Start Date Coverage End Date [facility] [address] [place] [id number] EDDIE MERIDA Self - patient is the insured Medical (General) History Medical History History ICD Code Hypothyroidism SVT's Anxiety Denies NM,DM,CVA,Lung disease,renal dise ase Bowel obstruction at [facility]-treated with a NG tube, no surgery--the patient reports that she was told that this was due to adhesions Acute onset of symptoms of a bdominal pain, vomiting, and diarrhea resulting in a hospitalization from 04/07-04/10/23. Her CT at [facility] described a pancolitis and possible appendicitis, although surgical consultation did not think she had appendicitis and she did not undergo surgery. She did well with a course of IV and subsequent oral antibiotics with resolution of her symptoms Surgical History Surgery Date(Month/Year) Lap. CCY-08/2022 Eye sugeries as a child Glaucoma surgery 2018
== END 2025-07-20 09:56 | disposition home or self-care (01) ==
LOC: HO.HMCH 08:48
PROVIDERS: PCP Internal Medicine; Visit Provider Internal Medicine
DX: Z00.00 Encounter for general adult medical examination without abnormal findings (principal); Z72.0 Tobacco use; N30.90 Cystitis, unspecified without hematuria; K21.9 Gastro-esophageal reflux disease without esophagitis; E03.9 Hypothyroidism, unspecified; E78.00 Pure hypercholesterolemia, unspecified; F41.1 Generalized anxiety disorder; Z23 Encounter for immunization

== ENCOUNTER → 2025-07-20 08:47 | Outpatient (BNVA) | payer OTHER, SELFPAY | PROVIDERS: PCP Internal Medicine; Visit Provider Internal Medicine | DX: Z00.00 Encounter for general adult medical examination without abnormal findings (principal); K21.9 Gastro-esophageal reflux disease without esophagitis; N30.91 Cystitis, unspecified with hematuria; R31.0 Gross hematuria; E03.9 Hypothyroidism, unspecified; E78.00 Pure hypercholesterolemia, unspecified; F41.1 Generalized anxiety disorder; D64.9 Anemia, unspecified; F32.9 Major depressive disorder, single episode, unspecified; F41.9 Anxiety disorder, unspecified; E53.8 Deficiency of other specified B group vitamins; F17.210 Nicotine dependence, cigarettes, uncomplicated; Z23 Encounter for immunization | CPT/HCPCS: 90471; 90714; 99396 ==

== ENCOUNTER 2025-07-23 14:14 | Outpatient (REF) | payer OTHER, SELFPAY ==
--- OUTSIDE RECORDS SUMMARY | 2025-07-19 10:20 | XMS_ITS ---
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 Physical, Annual MACHINE VENEER REPAIRER Physical 60-85+ Medications Medication SIG (Take, Route, [...] Status W/U Status Risk Notes Problem Osteoarthritis (641429488) Unspecified osteoarthritis, unspecified site (M19.90) Active confirmed Problem Postmenopausal atrophic vaginitis (49013361) Postmenopausal atrophic vaginitis (N95.2) Active confirmed Problem Subacute and chronic vaginitis (N76.1) Active confirmed Vital Signs Temperature 97.7 degrees Fahrenheit 07/19/20 25 Blood pressure systolic 116 mm Hg 07/19/20 25 Blood pressure diastolic 78 mm Hg 025 Height 62 in 07/19/2025 Weight 95 lbs 07/19/2025 BMI 17.37 kg/m2 07/19/2025 Encounters Encounter Location Date Provider Diagnosis [address] [address] 07/19/2025 Ana Gagnon Encounter for screening for [...] MAMMOGRAM, SCREENING 07/19/2025 MM Digital Mammo Screening 07/19/[id number]-Tqk IGP No Culture 30 Plus 2024 Next Appt Details Follow Up: 1 Year, Reason: Provider Name:Ana arambula, 07/24/2026 02:40:00 PM, [address], [address], [place], [address], Progress Notes * KORY MERIDAADOB:1960 ( 65 yo F)Acc No.[id number]:07/19/2025 Progress Note Patient: EDDIE PINO Appointment Provider: Daniel Gagnon M.D. :1960 A ge:65 Y S ex:Female Date:07/19/2025 Address:[address] [place], [place] [id number] Pcp:ADAN MATTHEWS M.D. Subjective: * Chief Complaints: * A nnual MACHINE VENEER REPAIRER PhysicalAnnual MACHINE VENEER REPAIRER Physical 60-85+ * HPI: N ew/Follow-up Patient [...] YEARS. HER PARTNER IS NOW IN A GROUP HOME. HE IS SIGNIFICANTLY OLDER THAN HER. SHE [...] calcium via diet and supplementation S ignificant MACHINE VENEER REPAIRER problems: n o significant vest finisher symptoms or problems * ROS: g eneral: [...] kin complaints. ? * Medical History: * Learning Developer History: G ravida/ Para 3 /3. S [...] support system: yes. 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 Sexually active: no. D rug/Alcohol: A HILTON-C [...] Hematuria, Work Up with Urologist Negative ?Lab: [id number] IGP No Culture 30 Plus* Vaginal/Cervical, LMP: [...] * Images: Billing Information: * Visit Code: 38351 Preventive Care Est Pt. Age 40-64. * Procedure Codes: 18218 PELVIC EXAMINATION. * Sign off status: Completed true * Appointment Provider: Daniel Gagnon M.D. Date: 0 07/19/2025 Generated for Zenaida obregon/Alessia/Ivonneitting on: 0 07/23/2025 07:34 PM EDT History and Physical Notes * HPI [...] YEARS. HER PARTNER IS NOW IN A GROUP HOME. HE IS SIGNIFICANTLY OLDER THAN HER. SHE [...] ate calcium via diet and supplementation Significant MACHINE VENEER REPAIRER problems:: n o significant vest finisher symptoms or problems Examination Category Sub-Category Detail Notes Category Not es General Exam CONSTITUTIONAL: General Appearan ce:: alert, in no acute distress, normal, well nourished NECK/THYROID: Thyroid:: normal size and shape Inspection/Palpation:: normal RESPIRATORY: Auscultation: clear to auscultation bilaterally, Respiratory Effort: normal CARDIOVASCULAR: Auscultation: regula r rate and rhythm GASTROINTESTINAL: Hernias:: no hernias present, no inguinal adenopathy Liver and Spleen:: normal Abdomen:: no masses, nontender, nondiste nded MUSCULOSKELETAL: Inspection/Palpation:: no clubb ing, cyanosis, or edema SKIN: Skin:: normal NEURO/PSYCH: Mood/Affect:: normal Orientation:: time , place, person BREAST, Right: Inspection/Palpation :: no discharge, no [...]
[2025-07-23 16:17] LABS: Appearance Urine Clear; Glucose Urine UA Negative (Negative); PH 5.5 (5.0-9.0); Specific Gravity - Urine 1.020 (1.005-1.025); UMIC TRIGGER UA YES
[2025-07-23 16:21] LABS: MANUAL DIFF FLAG NO
[2025-07-23 16:27] LABS: Hematocrit 38.4 % (37.0-47.0); Hemoglobin 13.1 g/dl (12.0-16.0); Imm Gran Abs Auto 0.04 X10*3/uL (0.00-0.03); Imm Gran Pct Auto 0.5 % (0.0-0.4); Lymphocytes Absolute Auto 2.9 X10*3/uL (1.2-4.9); Mean Corpuscular HGB Conc 34.1 g/dl (31.0-35.0); Mean Corpuscular Hemoglobin 33.2 pg (27.0-33.0); Mean Corpuscular Volume 97.2 fL (80.0-98.0); NRBC Abs Auto 0.000 X10*3/uL (0.0-0.012); NRBC Pct Auto 0.0 /100WBC (0.0-0.2); Platelet Count 243 X10*3/uL (160-400); Red Blood Count 3.95 X10*6/uL (4.20-5.50); White Blood Count 8.6 X10*3/uL (4.8-10.8)
[2025-07-23 16:56] LABS: Alanine Aminotransferase 25 U/L (0-31); Albumin Level 4.2 g/dL (3.5-5.0); Alkaline Phosphatase 78 U/L (39-117); Anion Gap 13 (12-20); Aspartate Amino Transferase 25 U/L (5-31); Blood Urea Nitrogen 12 mg/dL (9-16); Calcium 9.2 mg/dL (8.4-10.2); Carbon Dioxide 23 mmol/L (22-29); Chloride 106 mmol/L (96-108); Estimated Glomerular Filt Rate > 60; Free T4 (Free Thyroxine) 1.08 ng/dL (0.71-1.85); Magnesium 1.8 mg/dL (1.6-2.6); Potassium 4.2 mmol/L (3.3-5.1); Sodium 138 mmol/L (135-145); Thyroid Stimulating Hormone 2.15 uIU/mL (0.32-4.0); Total Protein 6.6 g/dL (6.5-8.0)
[2025-07-23 17:10] LABS: Folate 5.0 ng/mL (> or = 4.0); Vitamin B12 307 pg/mL (200-900)
--- OUTSIDE RECORDS SUMMARY | 2025-07-23 19:34 | XMS_ITS | Patient Health Record ---
Author Organization [email or web address] [facility] Address [address] [facility] [address] [place] [address] Care Team Providers Care Manager Unix Name Role Phone ADAN MATTHEWS M.D. Primary Care Provider Ana Browne Unavailable [phone] Allergies Allergen (clinical drug ingredient) Drug/Non Drug [...] Status Risk Notes Problem Postmenopausal atrophic vaginitis (76701216) Postmenopausal atrophic vaginitis (N95.2) Active confirmed Problem Osteoarthritis (408366717) Unspecified osteoarthritis, unspecified site (M19.90) Active confirmed Problem Subacute and chronic vaginitis (N76.1) Active confirmed Vital Signs Temperature 97.7 degrees Fahrenheit 07/19/2025 Blood pressure diastolic 78 mm Hg 07/19/2025 Height 62 in 07/19/2025 Blood pressure systolic 116 mm Hg 07/19/2025 Weight 95 lbs 07/19/2025 BMI 17.37 kg/m2 07/19/2025 Encounters Encounter Location Date Provider Diagnosis [address] [address] 07/19/2025 Ana Gagnon Encounter for screening for [...] MAMMOGRAM, SCREENING 07/19/2025 MM Digital Mammo Screening 07/19/[id number]-Pzl IGP No Culture 30 Plus 2024 Next Appt Details Provider Name:Ana arambula, 07/24/2026 02:40:00 PM, [address], [address], [place], [address], Insurance Providers Payer Name Payer Address Payer Phone Subscriber Number Group Number Insured Name Patient Relationship to Insured Coverage Start Date Coverage End Date [facility] (HEALTH DIRECT) [address] [place] [phone] [id number] EDDIE MERIDA Self - patient is the [...]
--- OUTSIDE RECORDS SUMMARY | 2025-07-23 19:34 | XMS_ITS | Patient Health Record ---
Author Organization [facility] Address [address] [place] [address] Care Team Providers Care Image Editor Name Role Phone Dominik Alas MD Primary Care Provider Piero Hayward [phone] Allergies Allergen (clinical drug ingredient) Drug/Non Drug [...] Problem Status W/U Status Risk Notes Problem 224785819 Colon cancer screening (Z12.11) Active confirmed Problem 622415532 Abnormal CT scan , colon (R93.3) Active confirmed Problem [id number] Gastroesophageal reflux disease, unspecified whether esophagitis present (K21.9) Active confirmed Plan Of Treatment Future Test Test Name Order Date UPPER GI ENDOSCOPY 04/21/2023 COLONOSCOPY 04/21/2023 Insurance Providers Payer Name Payer Address Payer Phone Subscriber Number Group Number Insured Name Patient Relationship to Insured Coverage Start Date Coverage End Date [facility] [address] [place] [id number] EDDIE MERIDA Self - patient is the insured Medical (General) History Medical History History ICD Code Hypothyroidism SVT's Anxiety Denies WA,DM,CVA,Lung disease,renal dise ase Bowel obstruction at [facility]-treated with a NG tube, no surgery--the patient reports that she was told that this was due to adhesions Acute onset of symptoms of a bdominal pain, vomiting, and diarrhea resulting in a hospitalization from 04/07-04/10/23. Her CT at [facility] described a pancolitis and possible appendicitis, although surgical consultation did not think she had appendicitis and she did not undergo surgery. She did well with a course of IV and subsequent oral antibiotics with resolution of her symptoms Surgical History Surgery Date(Month/Year) Lap. CCY-08/2022 Eye sugeries as a child Glaucoma surgery 2018
== END 2025-07-23 14:15 | disposition home or self-care (01) ==
LOC: HO.HMGCLDS 14:14
PROVIDERS: PCP Internal Medicine; Visit Provider Internal Medicine
DX: E03.9 Hypothyroidism, unspecified (principal)
CPT/HCPCS: 36415; 80053; 81001; 82607; 82746; 83735; 84439; 84443; 85025

== ENCOUNTER 2025-10-30 14:29 | Outpatient (AMB) | payer OTHER, SELFPAY ==
[2025-10-30 14:48] VITALS: BP 88/58; PULSE 81; RESP 18; O2SAT 96; BMI 18.2
--- NOTE | 2025-10-30 14:48 | A.OFFPC_ITS ---
Vital Signs 10/30/25 14:48 10/30/25 15:36 Height 5 ft 2 in Weight 99 lb 4 oz BMI 18.2 BP 88/58 L 120/70 Blood Pressure Location Lt brachial Lt brachial Position Sitting Sitting Respiration 18 Pulse 81 Pulse Source Pulse Oximeter Temp Source Temporal Artery Scan Pulse Oximetry (%) 96 Oxygen Delivery Method Room Air Intake Visit Reasons: tiredness Senior Staff Consultant Required: No Accompanied by: Self / Same As Patient Allergies sulfamethoxazole (From Bactrim) Allergy (Severe, Verified 10/30/25 14:51) upset stomach trimethoprim (From Bactrim) Allergy (Severe, Verified 10/30/25 14:51) upset stomach ciprofloxacin (From Cipro) Allergy (Intermediate, Verified 10/30/25 14:51) Nausea Penicillins (PENICILLINS) Allergy (Unknown, Verified 10/30/25 14:51) Swelling simvastatin (SIMVASTATIN) Allergy (Unknown, Verified 10/30/25 14:51) JOINT PAIN omeprazole Adverse Reaction (Intermediate, Verified 10/30/25 14:51) Headache pantoprazole Adverse Reaction (Intermediate, Verified 10/30/25 14:51) Headache Medication List - Last Reconciled 10/30/25 by Dominik Alas MD cholecalciferol (vitamin D3) 50 mcg PO DAILY cyanocobalamin (vitamin B-12) 1,000 mcg PO DAILY ferrous sulfate (Feosol) 325 mg PO DAILY folic acid 1 mg PO DAILY 90 days levothyroxine 88 mcg PO DAILY 90 days lorazepam (Ativan) 0.5 mg PO BID PRN metoprolol succinate ER 12.5 mg (1/2 x 25 mg) PO DAILY metronidazole 1% 1 appl topical BEDTIME Tobacco use date assessed: 10/30/25 Dental Screening Dental Screen Date: 10/30/25 Did you have a dental visit in the last 12 months?: No Did you have a dental problem in the last 6 months where you did not have access to dental care?: No Was dental information given to patient?: No HPI HPI Comments History of Present Illness Details History of Present Illness The patient is a 65-year-old female presenting for a follow-up visit for management of chronic conditions, medication refills, and evaluation of new- onset wrist pain. She has a history of being underweight, hypothyroidism, hypercholesterolemia, generalized anxiety disorder, and a history of small bowel obstruction from adhesions. She is a current smoker. Review of her last blood work from July 23 showed a normal complete blood count, platelet count, and white blood cell count. Her electrolytes and renal function were normal, though her blood sugar was noted to be elevated at 108 mg/dL, which has been a consistent finding. Liver function tests, vitamin B12, folic acid, and thyroid levels were all within normal limits. A urine test at that time revealed some blood, and a subsequent CT urogram was negative. The patient takes metoprolol 12.5 mg once a day for palpitations, which she reports experiencing on occasion. She admits to not drinking much water. For generalized anxiety disorder, she is prescribed lorazepam and requested a refill during this visit. For hypothyroidism, she is on 88 mcg of thyroid medication. She presents with a new complaint of worsening wrist pain and bilateral hand numbness that occurs every day, particularly at night, which she suspects is carpal tunnel syndrome. She previously had testing for this but was dissatisfied with the provider and did not complete the evaluation. In terms of gastrointestinal health, she denies constipation but notes experiencing diarrhea after eating greasy foods, though it is not severe enough to require medication. Regarding health maintenance, she has declined colonoscopy and lung cancer screening. Her mammogram is due in May 2024. She has received her influenza vaccine but has declined the shingles vaccine. Health Maintenance The patient declined a colonoscopy at this time. She was reminded that her mammogram is due in May 2024. Vaccination status was reviewed; she has had her influenza shot but declined the shingles vaccine. Social History - Substance Use: The patient is a curren t smoker and was strongly advised to quit. - Nutrition/Diet: The patient reports yeny long gained some weight recently and has been trying to eat more protein, such as chicken, as advised by her son. - Hydration: Admits to not drinking much water and was advised to stay well hydrated. Results - Labs (from July 23): - Complete blood count, platelet count, white blood cell count: Normal. - Electrolytes: Normal. - Renal function: Normal. - Blood sugar: 108 mg/dL (elevated). - Liver function tests: Normal. - Vitamin B12, folic acid, thyroid funct ion: All within normal limits. - Urinalysis: Positive for blood. - Imaging: - CT urogram: Negative. [facility] Medical History Generalized anxiety disorder Hypercholesterolemia Colonoscopy refused Cataract, left eye Anemia GERD (gastroesophageal reflux disease) Tobacco abuse Hypothyroid Vitamin B12 deficiency Surgical History Hx of right cataract extraction Hx of cholecystectomy History of eye surgery Family History Father Hypertension CVD (cardiovascular disease) Bladder cancer Mother CVD (cardiovascular disease) Hypertension Lymphoma Maternal Grandmother Uterine cancer Breast cancer Maternal Aunt Ovarian cancer Sister No problems noted. 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 /[employer] Cognitive needs: No Hearing needs: No Vision needs: Yes (Glasses) Questionnaire Thrive Questionnaire Date Thrive assessed: 10/30/25 I am a: Patient What is your living situation today?: I have a steady place to live Within the past 12 months, did the food you bought not last and you didn't have the money to get more?: Never true Within the past 12 months, did you worry whether your food would run out before you got money to buy more?: Never true Do you have trouble paying for medicines?: No Do you have trouble getting transportation to medical appointments?: No Do you have trouble paying your heating and electricity bill?: No Do you have trouble taking care of your child, family member or friend?: No Do you have trouble with day-to-day activities such as bathing, preparing meals, shopping, managing finances, etc.?: No Are you currently unemployed and looking for a job?: No Are you interested in more education?: No Please select the resources that you would like help with: None Currently or been in a relationship where the following occur: No concerns reported THRIVE Score: 0 VAL-7 AMB Questionnaire VAL-7 Date VAL - 7 assessed: 01/09/25 Source: Developed by Drs. Piero Reyes, Millie Alvarado, Patrice Keita and colleagues, with an educational anila from [employer]. Review of Systems Narrative Review of Systems - Constitutional: Patient is underweight but reports recent weight gain. - Cardiovascular: Reports occasional palpitations. - Gastrointestinal: Reports good bowel movements and denies constipation. - She experiences diarrhea with greasy foods. - Genitourinary: History of hematuria noted on prior urinalysis. - Musculoskeletal: Reports worsening pain in one wrist. - Neurological: Reports bilateral hand numbness that occurs daily, especially at night. - Denies numbness in the upper arm. Physical exam (Primary Care) Vital Signs: Last Vital Signs Pulse 81 10/30/25 14:48 Resp 18 10/30/25 14:48 BP 120/70 10/30/25 15:36 Pulse Ox 96 10/30/25 14:48 Oxygen Delivery Method Room Air 10/30/25 14:48 BMI result Body Mass Index 18.2 Tobacco/Smoking Status: Tobacco use Status Tobacco use date assessed 10/30/25 10/30/25 14:55 Patient Tobacco Use Status Current everyday Tobacco 10/30/25 14:55 Tobacco use type Cigarette 10/30/25 14:55 e-Cigarette/Vaping Use Never Used 10/30/25 14:55 Thrive Assessment: Date of Thrive Assessment Date Thrive assessed 10/30/25 10/30/25 14:55 Currently or been in a relationship where the following occur: No concerns reported Narrative Physical Exam - Vitals: Blood pressure is 120/70 mmHg. - General: Patient is an underweight female. - Lungs: Clear to auscultation with regular breath sounds. Const General: alert; No acute distress Eyes Conjunctivae: conjunctivae normal Resp Auscultation: clear to auscultation bilaterally Cardio Rate: regular rate Rhythm: regular rhythm GI Inspection: Yes normal to inspection Extrem General: Yes normal to inspection and No edema Coding Level of Care Code Est Pt Level 4 (08237) Add On Problem Visit Only Diagnoses Hypercholesterolemia E78.00 Palpitations R00.2 Acquired hypothyroidism E03.9 Hypothyroidism type: acquired Gastroesophageal reflux disease without esophagitis K21.9 Esophagitis presence: without esophagitis Hematuria, unspecified type R31.9 Hematuria type: unspecified type Tobacco abuse Z72.0 Generalized anxiety disorder F41.1 Bilateral hand numbness R20.0 Assessment & Plan Assessment & Plan (1) Hypercholesterolemia: Code(s): E78.00 - Pure hypercholesterolemia, unspecified Category: Medical Plan: Avoid fried foods, chicken skin, eggs, butter margarine, pastries and meat. Be it pork or beef they have a lot of cholesterol LDL goal of less than 130 and triglyceride of less than 150 (2) Palpitations: Code(s): R00.2 - Palpitations Category: Medical Plan: Patient on metoprolol 12.5 mg once a day (3) Hypothyroid: Code(s): E03.9 - Hypothyroidism, unspecified Category: Medical Qualifiers: Hypothyroidism type: acquired Qualified Code(s): E03.9 - Hypothyroidism, unspecified Plan: Thyroid medication 88 mcg last tested in July (4) GERD (gastroesophageal reflux disease): Code(s): K21.9 - Gastro-esophageal reflux disease without esophagitis Category: Medical Qualifiers: Esophagitis presence: without esophagitis Qualified Code(s): K21.9 - Gastro-esophageal reflux disease without esophagitis Plan: Avoid the foods that causes that usually spicy foods, tomato products, juices, coffee, soda and foods that your sensitive to. After eating do not lie down, allow 3-4 hours before in lie down. And keep the head of bed above 30 degrees to avoid the acid from going up. (5) Hematuria: Code(s): R31.9 - Hematuria, unspecified Category: Medical Qualifiers: Hematuria type: unspecified type Qualified Code(s): R31.9 - Hematuria, unspecified Plan: Continuing to monitor CT urogram negative (6) Tobacco abuse: Comment: 08/2022 stopped - continuing to smoke 02/2023 Code(s): Z72.0 - Tobacco use Category: Medical Plan: Patient is strongly advised to stop smoking discussed about lung cancer screening program (7) Generalized anxiety disorder: Comment: Declined referral for counseling Code(s): F41.1 - Generalized anxiety disorder Category: Medical Plan: Continue with present therapy on lorazepam (8) Bilateral hand numbness: Code(s): R20.0 - Anesthesia of skin Category: Medical Plan Plan Patient was informed and verbally consented to the use of an ambient scribe for clinic note documentation during this visit. 1. Hypercholesterolemia The plan is to maintain an LDL goal of less than 130 and a triglyceride level of less than 150. Will continue to monitor. 2. Hypothyroidism The patient's thyroid function was last tested in July and was within normal limits. She will continue her current thyroid medication at 88 mcg daily. 3. Generalized Anxiety Disorder The patient requested a refill for her lorazepam. A prescription was sent to her pharmacy, and she will continue her present therapy. 4. Carpal Tunnel Syndrome The patient complains of worsening wrist pain and bilateral hand numbness, particularly at night. A referral will be made to [facility] for further evaluation and testing. 5. Tobacco Use Disorder The patient was strongly advised to stop smoking. A discussion was held regarding the lung cancer screening program, which the patient declined at this time. 6. Palpitations The patient reports occasional palpitations. She will continue taking metoprolol 12.5 mg once a day. Given a low blood pressure reading in the office which improved to 120/70, and the patient's admission of poor fluid intake, she was counseled on the importance of staying well hydrated. Discussion Notes I reviewed the patient's recent lab work from July, which was largely reassuring with normal blood counts, electrolytes, and kidney, liver, and thyroid function. We discussed her consistently mildly elevated blood sugar and the previous finding of hematuria, noting that her CT urogram was negative. Her blood pressure today was excellent at 120/70. We discussed the importance of staying hydrated, as her initial lower reading and her use of metoprolol could be affected by her low water intake. I refilled her lorazepam as requested. Regarding her new symptoms of wrist pain and hand numbness, I suspect carpal tunnel syndrome and have placed a referral to [facility] for further evaluation. We discussed health maintenance topics. I strongly advised her to quit smoking and discussed the lung cancer screening program, which she declined. She also declined a colonoscopy at this time. I reminded her that her mammogram is due in May 2024. We also reviewed vaccinations, noting she is up to date on her flu shot but declined the shingles vaccine. I provided anticipatory guidance on healthy eating. Patient Instructions - Continue to take your medications as prescribed, including Metoprolol, your thyroid medicine, and Lorazepam. - A refill for your Lorazepam has been sent to the pharmacy. - Please schedule an appointment with the specialist's office, [facility], for your wrist pain and hand numbness. - Remember that your mammogram is due in May 2024. - It is very important for your health that you quit smoking. - We can discuss ways to help you with this at any time. - Make sure to drink plenty of water to stay hydrated. - Continue with your efforts to eat a healthy diet. Orders: Referrals Orthopedics Referral R20.0 - Anesthesia of skin, R20.2 - Paresthesia of skin Medications: Refilled lorazepam (Ativan) 0.5 mg PO BID PRN 60 tabs 2RF anxiety F32.9 - Major depressive disorder, single episode, unspecified, F41.9 - Anxiety disorder, unspecified
[2025-10-30 15:36] VITALS: BP 120/70
--- OUTSIDE RECORDS SUMMARY | 2025-10-30 15:46 | XMS_ITS | Patient Health Record ---
Author Organization [facility] Address [address] [place] [address] Care Team Providers Care Swimming Instructor Name Role Phone ADAN MATTHEWS M.D. Primary Care Provider Ana Browne Unavailable [phone] Allergies Allergen (clinical drug ingredient) Drug/Non Drug [...] 5.0 PROTEIN Neg GLUCOSE Neg BLOOD Moderate [id number] IGP No Culture 30 Plus Reviewed date:07/25/2025 04:21:07 PM Interpretation: Performing Lab:[facility], [address], [address], [place], Phone - [phone], Director - [facility] Notes/Report: Clinical Information:Vaginal/Cervical, LMP: Men o [id number] Dates / Results....Unknown, No History Other..............Post Menopausal No. of containers..01 ThinPrep Vial Clinical Information:Vaginal/Cervical, LMP: Men o [id number] Dates / Results....Unknown, No History Other..............Post Menopausal No. of containers..01 ThinPrep Vial DIAGNOSIS: NEGATIVE FOR IN TRAEPITHELIAL LESION OR MALIGNANCY. Specimen adequacy: Satisfactory for evaluation. Endocervical and/or squamous metaplastic cells (endocervical component) are present. Areas of partially obscuring inflammatory exudate are present. Clinician provided ICD10: Z01.419 Z11.51 Performed by: Baljinder Neal , Railroad Cook (ASCP) . . Note: The Pap smear is a screening test designed to aid in the detection of premalignant and malignant conditions of the uterine cervix. It is not a diagnostic procedure and should not be used as the sole means of detecting cervical cancer. Both false-positive and false-negative reports do occur. . Test Methodology: This liquid based ThinPrep(R) pap test was screened with the use of an image guided system. HPV Aptima Positive Negative This nucleic acid amplification test detects fourteen high-risk HPV types (16,18,31,33,35,39,45,51,52,56,5 8,59,66,68) without differentiation. HPV Genotype Reflex Criteria met, see HPV Genotype results. HPV Genotype 16 Negative Negative HPV Genotype 18,45 Negative Negative PDF Report Reviewed date:07/25/2025 07:58:54 AM Interpretation: Performing Lab:[facility], [address], [address], [place], Phone - [phone], Director - [facility] Notes/Report: Clinical Information:Vaginal/Cervical, LMP: Men o [id number] Dates / Results....Unknown, No History Other..............Post Menopausal No. of containers..01 ThinPrep Vial Reason For Referral No Information Medications Medication SIG (Take, Route, Frequency, Duration) Notes Start Date End Date Status metroNIDAZOLE 500 MG 1 tablet Orally Twi ce a day; Duration: 7 days Disregard Metro-Gel. Patient needs oral flagyl. This is the correct rx. 08/10/2025 Active Iron Active Folic Acid Active Metoprolol Succinate ER 25 MG Oral; Duration: 30 Days Active Levothyroxine Sodium 88 MCG Oral; Duration: 30 Days Active metroNIDAZOLE 0.75 % 1 applicatorful at bedtime Vaginal ONCE A NIGHT; Duration: 5 days 07/19/2025 Active Vitamin B12 Active Estradiol Vaginal Cream 0.01% 1 Gram to the affected area Vaginal/Vulva Twice a week; Duration: 90 Days 07/19/2025 Active Vitamin D3 Active LORazepam 0.5 MG Oral; Duration: 30 [...] Status Risk Notes Problem Postmenopausal atrophic vaginitis (70947948) Postmenopausal atrophic vaginitis (N95.2) Active confirmed Problem Osteoarthritis (192946511) Unspecified osteoarthritis, unspecified site (M19.90) Active confirmed Problem Subacute and chronic vaginitis (N76.1) Active confirmed Vital Signs Temperature 97.7 degrees Fahrenheit 07/19/2025 Blood pressure diastolic 78 mm Hg 07/19/2025 Height 62 in 07/19/2025 Blood pressure systolic 116 mm Hg 07/19/2025 Weight 95 lbs 07/19/2025 BMI 17.37 kg/m2 07/19/2025 Encounters Encounter Location Date Provider Diagnosis [address] [place] [address] 07/19/2025 Ana Gagnon Encounter for screening for human papillomavirus (HPV) Z11.51 ; Encounter for gynecological examination (general) (routine) with abnormal findings Z01.411 ; Encounter for screening mammogram for malignant neoplasm of breast Z12.31 ; Postmenopausal atrophic vaginitis N95.2 and Subacute and chronic vaginitis N76.1 [facility] [address] [place] [address] 08/10/2025 Ana Gagnon [facility] [address] [place] [address] 08/13/2025 Ana Gagnon Subacute and chronic vaginitis N76.1 Assessments Encounter Date Diagnosis (ICD Code) Assessment Notes Treatment Notes Treatment Clinical Notes Section Notes 07/19/2025 Encounter for gynecological examination (general) (routine) with abnormal findings (ICD-10 - Z01.411) PAP TEST WAS OBTAINED. 07/19/2025 Encounter for screening for human papillomavirus (HPV) (ICD-10 - Z11.51) HPV TYPING WAS ORDERED WITH PAP TEST. 08/13/2025 Subacute and chronic vaginitis (ICD-10 - N76.1) 07/19/2025 Encounter for screening mammogram for malignant [...] MAMMOGRAM, SCREENING 07/19/2025 [facility] Digital Mammo Screening 07/19/2025 Next Appt Details Provider Name:Ana arambula, 07/24/2026 02:40:00 PM, [address], [place], [address], Insurance Providers Payer Name Payer Address Payer Phone Subscriber Number Group Number Insured Name Patient Relationship to Insured Coverage Start Date Coverage End Date [employer]) [address] [place] [phone] [id number] EDDIE MERIDA Self - patient is the [...]
--- OUTSIDE RECORDS SUMMARY | 2025-10-30 15:46 | XMS_ITS | Patient Health Record ---
Author Organization [facility] Address [address] [place] [address] Care Team Providers Care [employer] Operator Name Role Phone Po Dominik GORE Primary Care Provider Piero Hayward [phone] Allergies Allergen (clinical drug ingredient) Drug/Non Drug Allergy documented on EMR Reaction Allergy Type Onset Date Status sulfamethoxazole / trimethoprim Bactrim Unknown Drug Allergy Active ciprofloxacin Cipro Unknown Drug Allergy Act sonal omeprazole Omeprazole Unknown Drug Allergy Activ e simvastatin Simvastatin Unknown Drug Allergy Act sonal Penicillin Unknown Drug Allergy Active Reason For Referral No Information Medications Medication SIG (Take, Route, Frequency, Duration) Notes Start Date End Date Status Levothyroxine Sodium 88 MCG Tablet Oral; Duration: 30 Active LORazepam 0.5 MG Tablet Oral; Duration: 30 Active Metoprolol Succinate ER 25 MG Tablet Extended Release 24 Hour TAKE 1/2 TABLET BY MOUTH DAILY Oral; Duration: 30 Active Iron 325 (65 Fe) MG Tablet 1 tablet Oral ly Three times a Week; Duration: 30 day(s) 04/21/2023 Active Vitamin B 12 100 MCG Lozenge as directed Orally Active Folic Acid Xtra 04/21/2023 Act sonal Vitamin D (Cholecalciferol) 25 MCG (1000 UT) Capsule 1 capsule Orally Once a day; Duration: 30 day(s) 04/21/2023 Active Pantoprazole Sodium 40 MG Tablet Delayed Release 1 tablet Oral Once a day; Duration: 30 days Active Immunizations Vaccine Route Administration Date Status Comme nts Influenza Unknown 08/25/2022 Administered Social History Tobacco Use: Social History Observation Description Date Details (start date - stop date) Current Smoker NA - NA Social History Drugs/Alcohol: Social Info Question Answer Notes Alcohol Screen Did you have a drink containing alcohol in the past year? 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 [employer] Section Notes: She smokes one pack per day, she does not use any alcohol Problems Problem Type SNOMED Code ICD Code Onset Dates Problem Status W/U Status Risk Notes Problem Colon cancer screening (360594635) Colon cancer screening (Z12.11) Active confirmed Problem Computed tomography result abnormal (734780391) Abnormal CT scan, colon (R93.3) Active confirmed Problem Gastroesophageal reflux disease (045660810) Gastroesophageal reflux disease, unspecified whether esophagitis present (K21.9) Active confirmed Plan Of Treatment Future Test Test Name Order Date UPPER GI ENDOSCOPY 04/21/2023 COLONOSCOPY 04/21/2023 Insurance Providers Payer Name Payer Address Payer Phone Subscriber Number Group Number Insured Name Patient Relationship to Insured Coverage Start Date Coverage End Date [address] [id number] EDDIE MERIDA Self - patient is the insured Medical (General) History Medical History History ICD Code Hypothyroidism SVT's Anxiety Denies [place],DM,CVA,Lung disease,renal dise ase Bowel obstruction at [facility]-treated with a NG tube, no surgery--the patient reports that she was told that this was due to adhesions Acute onset of symptoms of a bdominal pain, vomiting, and diarrhea resulting in a hospitalization from 04/07-04/10/23. Her CT at [facility] described a pancolitis and possible appendicitis, although surgical consultation did not think she had appendicitis and she did not undergo surgery. She did well with a course of IV and subsequent oral antibiotics with resolution of her symptoms Surgical History Surgery Date(Month/Year) Lap. [facility]-08/2022 Eye sugeries as a child Glaucoma surgery 2018
== END 2025-10-30 16:23 | disposition home or self-care (01) ==
LOC: HO.HMCH 14:30
PROVIDERS: PCP Internal Medicine; Visit Provider Internal Medicine
DX: E78.00 Pure hypercholesterolemia, unspecified (principal); R00.2 Palpitations; E03.9 Hypothyroidism, unspecified; K21.9 Gastro-esophageal reflux disease without esophagitis; R31.9 Hematuria, unspecified; Z72.0 Tobacco use; F41.1 Generalized anxiety disorder; R20.0 Anesthesia of skin

== ENCOUNTER → 2025-10-30 14:29 | Outpatient (BNVA) | payer OTHER, SELFPAY | PROVIDERS: PCP Internal Medicine; Visit Provider Internal Medicine | DX: K21.9 Gastro-esophageal reflux disease without esophagitis (principal); E78.00 Pure hypercholesterolemia, unspecified; R00.2 Palpitations; E03.9 Hypothyroidism, unspecified; R31.9 Hematuria, unspecified; F41.1 Generalized anxiety disorder; R20.0 Anesthesia of skin; Z72.0 Tobacco use | CPT/HCPCS: 99212 ==